=== PATIENT | female | born 1950 | race Caucasian/White ===

== ENCOUNTER 2019-02-23 08:47 | Day surgery (SDC) | payer MEDICARE, OTHER, SELFPAY ==
--- NOTE | 2019-02-23 | PATH_ITS ---
[facility] Accession Number: [id number] . 01 Material submitted: . colon - ASCENDING COLON POLYP . 02 Diagnosis: Ascending Colon, Polyp: Tubular adenoma. MRV/02/24/2019 . 02 Electronically signed: . Prosper Walker MD, PhD, Pathologist NPI- [id number] . 01 Gross description: . ASCENDING COLON POLYP: Received in formalin are 2 fragment(s) of koehler, soft tissue measuring 0.3 x 0.2 x 0.2 cm to 0.3 x 0.3 x 0.3 cm which is entirely submitted and submitted entirely in 1 cassette(s) /DMC /DMC . 02 Pathologist provided ICD-10: D12.2 . 02 CPT . 844832 Performed at: 01 [facility] [address] [place] [address], [place], [place] [id number] MD Isac Diaz MD Phone: [phone] Performed at: 02 [facility] [address] [place], [place] [id number] MD Sol Gonzalez MD Phone: [phone]
[2019-02-23 09:22] VITALS: BP 137/85; PULSE 81; RESP 16; TEMP 36.7; O2SAT 100; BMI 22.3
[2019-02-23] MEDS: SODIUM CHLORIDE 0.9% 1,000 ML 200 ML IV (09:39)
--- NOTE | 2019-02-23 10:46 | PM.HP.1 ---
History of Present Illness Chief complaint: [id number] Patient History Medical History Cataract fragments of both eyes following cataract surgery (Acute) Precancerous skin lesion (Acute) Surgical History Hx of total hip arthroplasty (Acute) Social History household members: spouse Family & Social History Social History: household members spouse Meds Home Medications Medication Instructions Recorded Confirmed Type No Known Home Medications 02/23/19 02/23/19 History Allergies Allergy/AdvReac Type Severity Reaction Status Date / Time nitrofurantoin Allergy Unknown Verified 02/23/19 09:21 Sulfa (Sulfonamide Allergy Unknown Verified 02/23/19 09:21 Antibiotics) Review of Systems Review of Systems All systems reviewed & are unremarkable except as noted in HPI and below Exam Vital Signs (past 8 hours): - 02/23/19 09:22 Temperature 98.1 F Pulse Rate 81 Respiratory Rate 16 Blood Pressure 137/85 Pulse Oximetry 100 Oxygen Delivery Method Room Air Narrative Exam Narrative: Awake alert and oriented x3, pupils equal round reactive to light, lungs clear, heart regular rhythm and rate, abdomen soft nontender nondistended, extremities without edema Assessment & Plan Assessment & Plan narrative: Colon cancer screening, colonoscopy
[2019-02-23] MEDS: MIDAZOLAM 5 MG/5 ML VIAL IV (10:57)
[2019-02-23] MEDS: fentaNYL 250 MCG/5 ML INJ IV (10:58)
[2019-02-23 11:07] VITALS: BP 111/61; PULSE 83; RESP 17; TEMP 37; O2SAT 97
--- NOTE | 2019-02-23 11:11 | PM.OP.ENDO ---
Operative Date/Time/Diagnoses Date of procedure: 02/23/19 Procedure & Clinicians Study performed: Colonoscopy with cold biopsy Moderate conscious sedation was administered by the endoscopy nurse and supervised by the endoscopist. The following parameters were monitored: Oxygen saturation, heart rate, blood pressure, and response to care. Sedation: 4 mg midazolam, 100 micro g fentanyl Indications: Colon cancer screening. Last colonoscopy over 10 years ago Procedure Notes Procedure in detail: Prior to the procedure, history and physical was performed, and patient medications and allergies were reviewed. Preprocedure nursing history and assessment was reviewed. Patient identification and proposed procedure were verified by the physician and nurse in the procedure room. The physical status of the patient was reassessed after the procedure. After informed consent was obtained including risks, benefits, and alternatives, the scope was passed under direct vision. Throughout the procedure, the patient's blood pressure, pulse, and oxygen saturations were monitored continuously. The colonoscope was introduced through the anus and advanced to the cecum as identified by the appendiceal orifice and ileocecal valve. The patient tolerated the procedure well. Bowel prep was deemed adequate to detect polyps greater than 5 mm. Perianal and digital rectal examination is unremarkable. Retroflexion in the rectum was unrevealing A 3 mm sessile polyp was removed from the ascending colon with a Jumbo biopsy forceps and retrieved The colon was otherwise normal appearing Impression: 3 mm ascending colon polyp removed Colon otherwise unremarkable Sedation minutes: 16 Complications: other (EBL minimal. No complications) Plan for aftercare: Follow-up pathology results Repeat colonoscopy at a date to be determined based on pathology results Resume home medications Resume previous diet Discharge home with escort
[2019-02-23 11:12] VITALS: BP 104/57; PULSE 78; RESP 16; O2SAT 96
[2019-02-23 11:20] VITALS: BP 115/71; PULSE 89; RESP 16; O2SAT 97
== END 2019-02-23 11:35 | disposition home or self-care (01) ==
PROVIDERS: PCP Family Medicine Geriatric Medicine; Visit Provider Internal Medicine
PROC: 0DJD8ZZ Inspection of Lower Intestinal Tract, Via Natural or Artificial Opening Endoscopic (ICD-10-PCS; CPT 45378; principal; 2019-02-23 10:30)
DX: Z12.11 Encounter for screening for malignant neoplasm of colon (principal); D12.2 Benign neoplasm of ascending colon
CPT/HCPCS: 45380; 88305; J2250; J3010

== ENCOUNTER → 2020-08-01 08:10 | Outpatient (CLI) | payer MEDICARE, OTHER, SELFPAY ==
[2020-08-01 09:44] LABS: Add Manual Diff / Slide Review NO; Basophils Absolute Auto 100 /uL (0-100); Basophils Percent Auto 1.8 % (0-2); Eosinophils Absolute Auto 500 /uL (0-450); Eosinophils Percent Auto 9.1 % (2-4); Hemoglobin 13.1 g/dL (12.0-16.0); Lymphocytes Absolute Auto 1700 /uL (1100-4500); Lymphocytes Percent Auto 30.6 % (25-40); Mean Corpuscular HGB Conc 32.6 % (30-36); Monocytes Absolute Auto 500 /uL (0-900); Monocytes Percent Auto 8.4 % (3-14); Neutrophils Absolute Auto 2700 /uL (1500-7000); Neutrophils Percent Auto 50.1 % (50-75); Platelet Count 347 X10^3/uL (150-400); Red Blood Cell Count 4.35 X10^6/uL (4.0-5.2); Red Cell Distribution Width 12.9 % (11.6-14.8); White Blood Cell Count 5.5 X10^3/uL (4.5-11.0)
[2020-08-01 10:14] LABS: Alanine Aminotransferase 14 IU/L (<35); Albumin 3.9 g/dL (3.5-5.0); Alkaline Phosphatase 72 U/L (38-126); Aspartate Aminotransferase 24 IU/L (14-36); BUN Creatinine Ratio 27.8 (6-22); Bilirubin Total 0.4 mg/dL (0.2-1.3); Blood Urea Nitrogen 20 mg/dL (7-17); Calcium 9.3 mg/dL (8.4-10.2); Carbon Dioxide 31 mmol/L (22-32); Chloride 104 mmol/L (98-107); Cholesterol 225 mg/dL (140-199); Estimated Glomerular Filt Rate > 60.0 mL/min (>60); Glucose 87 mg/dL (80-110); HDL Cholesterol 43 mg/dL (40-60); HEMOLYSIS < 15 (0-50); LDL Cholesterol Calculated 156 mg/dL (<100); Potassium 4.6 mmol/L (3.4-5.1); Sodium 139 mmol/L (137-145); Total Protein 7.9 g/dL (6.3-8.2); Triglycerides 131 mg/dL (35-150)
[2020-08-01 10:31] LABS: Vitamin D 25 Hydroxy (D3) 45.6 ng/mL (30.0-100.0)
[2020-08-01 14:17] LABS: Appearance Urine UA SL CLOUDY; Bilirubin Urine UA NEGATIVE (NEGATIVE); Color Urine UA YELLOW; Glucose Urine UA NEGATIVE (Negative); Ketones Urine UA NEGATIVE (NEGATIVE); Leukocyte Esterase Urine UA NEGATIVE (NEGATIVE); Nitrite Urine UA NEGATIVE (Negative); Occult Blood Urine UA NEGATIVE (Negative); Protein Urine UA NEGATIVE (Negative); Specific Gravity Urine UA 1.015 (1.000-1.035); Urobilinogen Urine UA 0.2 E.U./dL (0.2)
== END ==
PROVIDERS: PCP Registered Nurse; Referring Provider Registered Nurse; Visit Provider Registered Nurse
DX: Z00.00 Encounter for general adult medical examination without abnormal findings (principal); E78.5 Hyperlipidemia, unspecified; K21.9 Gastro-esophageal reflux disease without esophagitis; E55.9 Vitamin D deficiency, unspecified; Z87.440 Personal history of urinary (tract) infections
CPT/HCPCS: 36415; 80053; 80061; 81003; 82306; 85025

== ENCOUNTER → 2020-08-20 13:43 | Outpatient (CLI) | payer MEDICARE, OTHER, SELFPAY ==
--- NOTE | 2020-08-20 14:16 | DI.RAD.S_ITS ---
PROCEDURE: XR CHEST 2V INDICATIONS: SOB TECHNIQUE: 2 views of the chest were acquired. COMPARISON: [facility], CR, CHEST 1 VIEW, 01/19/2012, 10:48. [facility], CR, CHEST 1 VIEW, 01/12/2012, 12:25. FINDINGS: Surgical changes and devices: None. Lungs and pleura: Lungs are abnormal with a prominent interstitial pattern that has significantly worsened from the comparison study 01/19/12. Focal consolidation is not present but generalized patchy alveolar opacification can be seen.. No pleural effusions or pneumothorax. Mediastinum: Mediastinal contours are normal. Heart size is normal. Bones and chest wall: No suspicious bony abnormalities. Soft tissues appear unremarkable. IMPRESSION: Prominent interval worsening of an interstitial lung disease pattern with increased interstitial prominence, with a micronodular pattern, and with findings raising concern for presence of atypical/viral pneumonia. Dictated by: Go Covarrubias M.D. on 08/20/2020 at 15:11 Approved by: Go Covarrubias M.D. on 08/20/2020 at 15:12
== END ==
PROVIDERS: PCP Registered Nurse; Referring Provider Registered Nurse; Visit Provider Registered Nurse
DX: R06.02 Shortness of breath (principal); J84.9 Interstitial pulmonary disease, unspecified
CPT/HCPCS: 71046

== ENCOUNTER → 2020-08-22 13:43 | Outpatient (ROUT) | payer MEDICARE, OTHER, SELFPAY ==
[2020-08-23 11:36] LABS: COVID19 Sendout Not Detected (Not Detected)
== END ==
PROVIDERS: PCP Registered Nurse; Visit Provider Physician Assistant
DX: R06.02 Shortness of breath (principal)
CPT/HCPCS: 87635

== ENCOUNTER → 2021-01-28 13:22 | Outpatient (CLI) | payer MEDICARE, OTHER, SELFPAY ==
[2021-01-28 16:27] LABS: COVID19 -Nasal RAPID Negative (Negative)
== END ==
PROVIDERS: PCP Registered Nurse; Visit Provider Physician Assistant
DX: Z20.822 Contact with and (suspected) exposure to COVID-19 (principal)
CPT/HCPCS: 87635; C9803

== ENCOUNTER → 2021-02-06 16:05 | Outpatient (CLI) | payer MEDICARE, OTHER, SELFPAY ==
[2021-02-10 16:52] LABS: Antimyeloperoxidase AB <9.0 U/mL (0.0-9.0); Antiproteinase 3 AB <3.5 U/mL (0.0-3.5); Atypical P-ANCA Titer <1:20 titer (Neg:<1:20); C-ANCA Titer <1:20 titer (Neg:<1:20); P-ANCA Titer <1:20 titer (Neg:<1:20)
[2021-02-11 13:28] LABS: Aureobasidium pullulans IgG Negative (Negative); Micropolyspora faeni IgG Negative (Negative); Pigeon Serum IgG Negative (Negative); Thermoactinomyces sacchari IgG Negative (Negative); Thermoactinomyces vulgaris IgG Negative (Negative)
== END ==
PROVIDERS: PCP Family Medicine; Referring Provider Internal Medicine Critical Care Medicine; Visit Provider Internal Medicine Critical Care Medicine
DX: J84.89 Other specified interstitial pulmonary diseases (principal); D71 Functional disorders of polymorphonuclear neutrophils
CPT/HCPCS: 36415; 83520; 86256; 86331; 86602; 86606; 86609; 86671

== ENCOUNTER → 2021-02-22 07:15 | Outpatient (CLI) | payer MEDICARE, OTHER, SELFPAY ==
[2021-02-22 08:30] LABS: Cholesterol 232 mg/dL (140-199); HDL Cholesterol 69 mg/dL (40-60); LDL Cholesterol Calculated 135 mg/dL (<100); Triglycerides 141 mg/dL (35-150)
== END ==
PROVIDERS: PCP Family Medicine; Referring Provider Family Medicine; Visit Provider Family Medicine
DX: E78.5 Hyperlipidemia, unspecified (principal)
CPT/HCPCS: 36415; 80061

== ENCOUNTER → 2021-04-23 11:15 | Outpatient (CLI) | payer MEDICARE, OTHER, SELFPAY ==
--- NOTE | 2021-04-23 11:19 | DI.RAD.S_ITS ---
PROCEDURE: XR LUMBAR SPINE 2-3V INDICATIONS: lumbar strain TECHNIQUE: 3 views of the lumbar spine were acquired. COMPARISON: [facility], , THORACO-LUMBAR SPINE 2 VIEWS, 12/09/2011, 11:35. FINDINGS: Bones: 5 [id number] vertebrae are present. There is near-normal bony alignment. No definite acute vertebral body compression fractures are found but there is inferior deviation of the middle 3rd of the upper endplate the L2 vertebral body, present also in 2012. No suspicious bony lesions. Convex rightward scoliosis is mild. Soft tissues: Overlying bowel gas pattern is normal. No suspicious soft tissue calcifications. IMPRESSION: Mild convex rightward scoliosis, no definite acute trauma found. Mild superior endplate deviation inferiorly, present at least since a comparison plain film study from 12/09/11.. No subluxation seen. Dictated by: Go Covarrubias M.D. on 04/23/2021 at 11:49 Approved by: Go Covarrubias M.D. on 04/23/2021 at 11:52
== END ==
PROVIDERS: PCP Family Medicine; Referring Provider Physician Assistant; Visit Provider Physician Assistant
DX: S39.012A Strain of muscle, fascia and tendon of lower back, initial encounter (principal); M41.86 Other forms of scoliosis, lumbar region; X58.XXXA Exposure to other specified factors, initial encounter
CPT/HCPCS: 72100

== ENCOUNTER → 2021-04-24 10:56 | Outpatient (CLI) | payer MEDICARE, OTHER, SELFPAY ==
--- NOTE | 2021-04-24 10:59 | DI.MG.S_ITS ---
BILATERAL DIGITAL SCREENING MAMMOGRAM 3D/2D WITH CAD: 04/24/2021 CLINICAL: Routine screening. Comparison is made to exams dated: 05/10/2019 mammogram, 04/29/2017 mammogram, and 04/25/2015 mammogram - [facility]. The tissue of both breasts is heterogeneously dense. This may lower the sensitivity of mammography. Current study was also evaluated with a Computer Aided Detection (CAD) system. No significant masses, calcifications, or other findings are seen in either breast. There has been no significant interval change. IMPRESSION: NEGATIVE There is no mammographic evidence of malignancy. A 1 year screening mammogram is recommended. This exam was interpreted at Station ID: [id number]. NOTE: For mammograms, a report in lay terms will be sent to the patient. Approximately 15% of breast malignancies will not be visualized mammographically. In the management of a palpable breast mass, a negative mammogram must not discourage biopsy of a clinically suspicious lesion. Electronically Signed By: Stephanie arrieta/alesia:04/24/2021 12:51:43 copy to: GAGANDEEP CASE letter sent: Normal Exam ACR BI-RADS Category 1: Negative [id number]
== END ==
PROVIDERS: PCP Family Medicine; Referring Provider Family Medicine; Visit Provider Family Medicine
DX: Z12.31 Encounter for screening mammogram for malignant neoplasm of breast (principal); M85.852 Other specified disorders of bone density and structure, left thigh; Z78.0 Asymptomatic menopausal state
CPT/HCPCS: 77063; 77067; 77080

== ENCOUNTER → 2021-05-01 11:38 | Outpatient (CLI) | payer MEDICARE, OTHER, SELFPAY ==
[2021-05-01 12:43] LABS: COVID19 -Nasal RAPID Negative (Negative)
== END ==
PROVIDERS: PCP Family Medicine; Referring Provider Physician Assistant; Visit Provider Physician Assistant
DX: Z01.812 Encounter for preprocedural laboratory examination (principal); Z20.822 Contact with and (suspected) exposure to COVID-19
CPT/HCPCS: 87635; C9803

== ENCOUNTER → 2021-06-14 12:32 | Outpatient (CLI) | payer MEDICARE, OTHER, SELFPAY ==
--- NOTE | 2021-06-14 12:35 | DI.RAD.S_ITS ---
PROCEDURE: XR THORACIC SPINE 3V INDICATIONS: Acute pain, kyphosis TECHNIQUE: 3 views of the thoracic spine were acquired. COMPARISON: [facility], , THORACO-LUMBAR SPINE 2 VIEWS, 12/09/2011, 11:35. FINDINGS: Bones: Mild levoscoliosis of the thoracic spine with the apex at T10. Since the remote prior study done in 2011, there has been interval compression fracture of T6, T8, minimally at T9, and superior endplate scalloping of T12. No visible retropulsed fracture fragments or significant displacement. There is also superior endplate scalloping of lumbar vertebral bodies. There is anterior disc degeneration in the midthoracic spine. No suspicious bony lesions. 12 pairs of ribs are noted, and appear intact where visualized. Soft tissues: No paravertebral stripe thickening. IMPRESSION: 1. Interval compression fractures of T6 and T8. True chronicity is uncertain and MR imaging is recommended to assess for bone edema and possible vertebroplasty as treatment. Consider interventional radiology consult. 2. There is mild degenerative vertebral body height loss at T9 and a chronic compression fracture of T12 which is stable. 3. Slight progression of mild thoracic scoliosis. Dictated by: Stephanie Son M.D. on 06/14/2021 at 15:33 Approved by: Stephanie Son M.D. on 06/14/2021 at 15:38
== END ==
PROVIDERS: PCP Family Medicine; Referring Provider Family Medicine; Visit Provider Family Medicine
DX: M54.6 Pain in thoracic spine (principal); M48.54XA Collapsed vertebra, not elsewhere classified, thoracic region, initial encounter for fracture; M40.209 Unspecified kyphosis, site unspecified
CPT/HCPCS: 72072

== ENCOUNTER → 2021-06-21 16:35 | Outpatient (CLI) | payer MEDICARE, OTHER, SELFPAY ==
--- NOTE | 2021-06-21 16:38 | DI.MRI.S_ITS ---
PROCEDURE: MR THORACIC SPINE WO CON INDICATIONS: compression fractures TECHNIQUE: Noncontrast sagittal T1 spine echo and T2 fast spin echo, sagittal STIR, axial T1 and T2 fast spin echo through the thoracic spine. COMPARISON: [facility], CR, XR THORACIC SPINE 3V, 06/14/2021, 12:34. FINDINGS: Image quality: Excellent. Alignment and Curvature: Accentuated thoracic kyphosis is seen. No focal AP alignment abnormality is seen. Bone Marrow: Marrow is of normal overall signal. At T6, there is a compression deformity seen, with 50% loss of height anteriorly. No posterior displaced rib fracture fragments are seen. There is decreased T1 signal and increased STIR signal seen along superior aspect of this vertebral body, suggestive of an acute or subacute fracture. At T7, there is minimal anterior wedge deformity seen, approximately 10%. No findings of acute fracture can be seen. At T8, there is 50-60% loss of height anteriorly. There is decreased T1 weighted signal and increased STIR signal seen along the superior and anterior aspects of this vertebral body. No posterior displacement of fracture fragments can be seen. At the T9 level, there is a mild compression deformity seen involving the inferior endplate centrally, with approximately 20% loss of height. No acute features are seen. There is an associated Schmorl's node. A mild remote compression deformities can be seen involving the superior endplate of T12, with approximately 20% loss of height. At L2, there is a 20% central deformity seen, without acute features. Spinal Cord: Visualized spinal cord is normal in size and signal. Paraspinous Soft Tissues: No paravertebral masses. Miscellaneous: Generalized degenerative changes are seen, with scattered levels of mild disc space narrowing. Several levels of mild to moderate neural foraminal narrowing can be seen within the mid thoracic spine. No definite levels of central canal narrowing can be seen. IMPRESSION: Acute or subacute fracture seen involving T6 and T8. Please consider interventional radiology consultation for discussion of vertebroplasty. Remote appearing fractures can be seen involving T7, T9, T12, and L2. Dictated by: Satinder Clay M.D. on 06/21/2021 at 18:16 Approved by: Satinder Clay M.D. on 06/21/2021 at 18:22
== END ==
PROVIDERS: PCP Family Medicine; Referring Provider Family Medicine; Visit Provider Family Medicine
DX: M99.02 Segmental and somatic dysfunction of thoracic region (principal); M54.5 Low back pain; M48.54XA Collapsed vertebra, not elsewhere classified, thoracic region, initial encounter for fracture
CPT/HCPCS: 72146

== ENCOUNTER → 2021-06-28 15:42 | Outpatient (CLI) | payer MEDICARE, OTHER, SELFPAY ==
[2021-06-28 15:51] LABS: Bacteria Urine None Seen; RBC Urine None Seen (0-5/HPF)
[2021-06-28 17:42] LABS: Appearance Urine UA CLEAR; Bilirubin Urine UA NEGATIVE (NEGATIVE); Color Urine UA YELLOW; Glucose Urine UA TRACE g/dL (Negative); Ketones Urine UA NEGATIVE (NEGATIVE); Leukocyte Esterase Urine UA NEGATIVE (NEGATIVE); Nitrite Urine UA NEGATIVE (Negative); Occult Blood Urine UA NEGATIVE (Negative); Protein Urine UA NEGATIVE (Negative); Specific Gravity Urine UA <=1.005 (1.000-1.035); Urobilinogen Urine UA 0.2 E.U./dL (0.2)
[2021-06-28 17:51] LABS: Culture Indicated Urine Cult Not Indicated; Squamous Epithelial Cell Urine 0-1 /HPF (0-5/HPF); WBC Urine 0-1/HPF (0-5/HPF); pH Urine UA 6.5 (4.5-8.0)
== END ==
PROVIDERS: PCP Family Medicine; Referring Provider Family Medicine; Visit Provider Family Medicine
DX: R34 Anuria and oliguria (principal); R10.2 Pelvic and perineal pain
CPT/HCPCS: 81001

== ENCOUNTER 2021-06-30 14:03 | Emergency (ER) | payer MEDICARE, OTHER, SELFPAY ==
[2021-06-30 14:19] VITALS: BP 214/102; PULSE 105; RESP 22; TEMP 36.9; O2SAT 97; BMI 19.2
--- NOTE | 2021-06-30 14:26 | DI.RAD.S_ITS ---
PROCEDURE: XR CHEST 1V INDICATIONS: chest pain TECHNIQUE: One view of the chest was acquired. COMPARISON: [facility], CR, XR CHEST 2V, 08/20/2020, 14:17. [facility], CR, CHEST 1 VIEW, 01/19/2012, 10:48. FINDINGS: Surgical changes and devices: None. Lungs and pleura: No consolidation. Mild diffuse prominence of the interstitium which is improved compared to August 2020. No pleural effusions or pneumothorax. Mediastinum: Mediastinal contours appear normal. Heart size is normal. Bones and chest wall: No suspicious bony lesions. Overlying soft tissues appear unremarkable. IMPRESSION: No acute abnormality identified. Mild diffuse prominence of the interstitial markings which is improved compared to August 2020. This could represent interstitial lung disease or scarring. Dictated by: Lino Zhang M.D. on 06/30/2021 at 13:53 Approved by: Lino Zhang M.D. on 06/30/2021 at 13:57
[2021-06-30 14:51] LABS: COVID19 -Nasal RAPID Negative (Negative)
--- NOTE | 2021-06-30 15:01 | ED_ITS ---
HPI - General Adult General Chief complaint: Hypertension Stated complaint: Abdominal Pain/Loose Stools/Increase heartrate Time Seen by Provider: 06/30/21 14:47 Source: patient Mode of arrival: Family Vehicle Limitations: no limitations History of Present Illness HPI narrative: Patient is a 71-year-old female who is here for evaluation of an increase in heart rate, elevation in her blood pressure, some abdominal d iscomfort yesterday and also some loose stools. She has chronic back discomfort. She has been on tramadol. She started to get some abdominal discomfort from this so she switched to using Tylenol and Advil. She was taking Advil prior to this. She is also on steroids. She no longer has abdominal pain. She has no urinary symptoms. No nausea vomiting. Earlier today she felt like her heart was beating fast and also had an elevated blood pressure. She denies chest pain. She has chronic lung disease and has her baseline shortness of breath from this but nothing is changed. She contacted her primary doctor regarding the symptoms and was told to come to the emergency department for evaluation. Related Data Home Medications Medication Instructions Recorded Confirmed Estriol ([place] Butter) 2 mg VAGINAL QWEEK 07/26/20 06/25/21 prednisone 20 mg tablet 10 mg PO DAILY tab 05/21/21 06/25/21 Previous Rx's Medication Instructions Recorded cyclobenzaprine 10 mg tablet 10 mg PO BID PRN #20 tab 04/18/21 lorazepam 0.5 mg tablet (Ativan) 0.5 mg PO DAILY PRN #2 tab 06/18/21 tramadol 50 mg tablet 50 mg PO TID PRN #60 tab 06/25/21 Allergies Allergy/AdvReac Type Severity Reaction Status Date / Time nitrofurantoin Allergy Intermediate Fatigued Verified 06/30/21 14:26 Sulfa (Sulfonamide Allergy Intermediate Hives Verified 06/30/21 14:26 Antibiotics) Review of Systems Constitutional Constitutional: Reports system reviewed and no additional complaints, except as documented Cardiovascular Cardiovascular: Reports as per HPI and Reports system reviewed and no additional complaints, except as documented Respiratory Respiratory: Reports as per HPI and Reports system reviewed and no additional complaints, except as documented Gastrointestinal Gastrointestinal: Reports as per HPI and Reports system reviewed and no additional complaints, except as documented Genitourinary Genitourinary: Reports system reviewed and no additional complaints, except as documented Musculoskeletal Musculoskeletal: Reports as per HPI Integumentary/Breasts Skin/Breast: Reports system reviewed and no additional complaints, except as documented Neurologic Neurologic: Reports system reviewed and no additional complaints, except as documented Endocrine Endocrine: Reports system reviewed and no additional complaints, except as documented Hematologic/Lymphatic On Anticoagulants: No Allergic/Immunologic Allergic/Immunologic: Reports system reviewed and no additional complaints, except as documented Patient History Medical History Abnormal Pap smear of cervix Acute low back pain Acute right-sided thoracic back pain Allergies Body posture problem Borderline hypothyroidism Cataract fragments of both eyes following cataract surgery Cervical somatic dysfunction Chicken pox (~1957) Colon polyps (~2018) Cranial somatic dysfunction Degeneration of spine Frequent UTI GERD (gastroesophageal reflux disease) Hearing loss Hip fracture (~1998) Lumbar region somatic dysfunction Measles (~1953) Mumps Oral herpes Osteoarthritis of right hand (~2015) Osteopenia (~1997) Osteoporosis (~2000) Pelvic somatic dysfunction Pneumonia (~2011) Precancerous skin lesion (~2017) Recurrent sinusitis Rib pain on right side Rubella (~1963) Sacral region somatic dysfunction Sarcoidosis of lung Screening for breast cancer Segmental and somatic dysfunction of abdomen and other regions Segmental and somatic dysfunction of rib cage Shoulder pain (~2017) Thoracic compression fracture Thoracic region somatic dysfunction Vision disorder Surgical History Anesthesia History of cataract removal with insertion of prosthetic lens (~2015) Hx of total hip arthroplasty Family History Father Vascular disease Liver disease Mother Cancer Grandfather Cancer Diabetes mellitus Grandmother Congestive heart failure Grandfather History of heart disease Grandmother History of heart disease Family/Other Hypertension Social History household members: spouse Smoking Status: Never smoker second hand exposure: No alcohol intake: current substance use type: does not use Smoking Status: Never smoker alcohol intake frequency: holidays/special occasions only Substance Use Type: does not use Exam Initial Vital Signs Initial Vital Signs: Vital Signs Temperature 98.4 F 06/30/21 14:19 Pulse Rate 105 H 06/30/21 14:19 Respiratory Rate 22 06/30/21 14:19 Blood Pressure 214/102 H 06/30/21 14:19 Pulse Oximetry 97 06/30/21 14:19 Const General: cooperative, comfortable and well developed HENIL Head: normal to inspection and normocephalic Eyes General: appearance normal, both eyes and all related structures Chest Chest: normal inspection of the chest Resp Effort & Inspection: normal respiratory effort Auscultation: clear to auscultation bilaterally Cardio Rate: regular rate Rhythm: regular rhythm GI Inspection: normal to inspection Palpation: soft and No tender Skin General: no rashes or lesions noted Neuro General: patient alert, patient awake, patient oriented x3 and moves all extremities Speech: speech normal Extrem General: normal to inspection and capillary refill normal Psych Appearance: grossly normal and well kempt Scores GCS Alonso coma scale eye opening: Spontaneous Alonso coma scale verbal response: Orientated Alonso coma scale motor response: Obey commands Alonso coma scale total score: 15 Course Orders Ordered: ED Orders 06/30/21 14:26 XR chest 1V Stat EKG-12 Lead Stat 06/30/21 14:30 COVID19 -Nasal swab/Pre-Proc Stat 06/30/21 14:39 Complete Blood Count AUTO DIFF Stat Comprehensive Metabolic Panel Stat Lipase Stat Troponin & CK Cardiac Panel Stat Vital Signs Vital signs: Vital Signs - 8 hr 06/30/21 14:19 06/30/21 15:10 06/30/21 15:30 Temperature 98.4 F Pulse Rate 105 H 91 H 95 H Respiratory Rate 22 24 Blood Pressure 214/102 H Pulse Oximetry 97 99 99 06/30/21 15:31 Temperature Pulse Rate 97 H Respiratory Rate 22 Blood Pressure 169/98 H Pulse Oximetry 99 Medical Decision Making Medical Records Medical records reviewed: Yes I reviewed the patient's medical records. Lab Data Lab results reviewed: Yes I reviewed the patient's lab results. Result diagrams: 06/30/21 14:39 06/30/21 14:39 Labs: Lab Results 06/30/21 06/30/21 06/30/21 Range/Units 14:30 14:39 14:39 WBC 8.9 (4.5-11.0) X10^3/uL RBC 4.30 (4.0-5.2) X10^6/uL Hgb 13.2 (12.0-16.0) g/dL Hct 40.6 (36-46) % MCV 94.3 (80-100) fL MCH 30.6 (26-34) PG MCHC 32.5 (30-36) % RDW 12.8 (11.6-14.8) % Plt Count 463 H (150-400) X10^3/uL Neut % (Auto) 83.8 H (50-75) % Lymph % (Auto) 11.9 L (25-40) % [place] % (Auto) 3.1 (3-14) % Eos % (Auto) 0.6 L (2-4) % Baso % (Auto) 0.6 (0-2) % Neut # (Auto) 7400 H (6536-9613) /uL Lymph # (Auto) 1100 (2142-7013) /uL [place] # (Auto) 300 (0-900) /uL Eos # (Auto) 100 (0-450) /uL Baso # (Auto) 100 (0-100) /uL Sodium 133 L (137-145) mmol/L Potassium 4.2 (3.4-5.1) mmol/L Chloride 97 L (98-107) mmol/L Carbon Dioxide 29 (22-32) mmol/L BUN 11 (7-17) mg/dL Creatinine 0.52 (0.52-1.04) mg/dL Estimated GFR > 60.0 (>60) mL/min BUN/Creatinine Ratio 21.2 (6-22) Glucose 154 H (80-110) mg/dL Calcium 10.1 (8.4-10.2) mg/dL Total Bilirubin 0.5 (0.2-1.3) mg/dL AST 33 (14-36) IU/L ALT 26 (<35) IU/L Alkaline Phosphatase 92 (38-126) U/L Total Creatine Kinase 43 (30-135) U/L CK-MB (CK-2) TNP CK-MB (CK-2) Rel Index TNP Troponin I < 0.012 (0.01-0.034) ng/mL Total Protein 8.2 (6.3-8.2) g/dL Albumin 4.5 (3.5-5.0) g/dL Globulin 3.7 (1.7-4.1) g/dL Albumin/Globulin Ratio 1.2 (1.0-2.8) Lipase 84 (23-300) U/L SARS-CoV-2 (PCR) Negative (Negative) Imaging Data Chest x-ray: Radiologist's Impression: [address] [address] XRay Report Signed Patient: Kayleigh Arita MR#: [id number] : 1950 Acct:[id number] Age/Sex: 71 / F Date of Service: 06/30/21 Loc: ED Accession Number: [id number] ?? Procedure: XR chest 1V Ordering Provider: Marcio Luna D.O. PROCEDURE:? XR CHEST 1V ? INDICATIONS:? chest pain ? TECHNIQUE:? One view of the chest was acquired.? ? COMPARISON:? [facility], CR, XR CHEST 2V, 08/20/2020, 14:17.? [facility], CR, CHEST 1 VIEW, 01/19/2012, 10:48. ? FINDINGS:? ? Surgical changes and devices:? None.? ? Lungs and pleura:? No consolidation.? Mild diffuse prominence of the interstitium which is improved compared to August 2020.? No pleural effusions or pneumothorax.? ? Mediastinum:? Mediastinal contours appear normal.? Heart size is normal.? ? Bones and chest wall:? No suspicious bony lesions.? Overlying soft tissues appear unremarkable.? ? IMPRESSION:? No acute abnormality identified. ? Mild diffuse prominence of the interstitial markings which is improved compared to August 2020. This could represent interstitial lung disease or scarring. ? ? Dictated by: Lino Zhang M.D. on 06/30/2021 at 13:53 ? ? Approved by: Lino Zhang M.D. on 06/30/2021 at 13:57? ECG Data Attestation: I personally reviewed and interpreted this ECG as follows: Interpretation: Sinus rhythm Ventricular rate 94 Left axis deviation LVH Normal QRS Normal QTC No ST T wave changes MDM Narrative Medical decision making narrative: Patient's blood pressure and heart rate improved here in the emergency department. She has a benign exam. EKG is unremarkable. Labs unremarkable. Low suspicion for ACS. Have a high suspicion that her abdominal discomfort is related to the anti-inflammatories and the steroids she has been taking without taking any PPI. I did discuss this with her. She has been on omeprazole in the past and I encouraged her to start taking this. Stated that if she needed stronger pain medication for her back that she needs to talk with her primary doctor regarding this. She is afebrile. Patient could be safely discharged home. She was given return precautions. She expressed understanding and agreement. Discharge Plan Departure Patient Disposition: Home Clinical Impression: Abdominal pain, Hypertension Instructions: Essential Hypertension, DI for Abdominal Pain-Adult Activity Restrictions/Additional Instructions: Continues to take all of your medications as directed. I do recommend that you start taking a medicine such as omeprazole. You can purchase this over-the- counter. Contact your primary doctor for a follow-up. Return to the emergency department for any new or worsening symptoms Prescriptions: No Action cyclobenzaprine 10 mg tablet 10 mg PO BID PRN (Reason: muscle spasm) Qty: 20 RF: 0 prednisone 20 mg tablet 10 mg PO DAILY RF: 0 lorazepam [Ativan] 0.5 mg tablet 0.5 mg PO DAILY PRN (Reason: anxiety) Qty: 2 RF: 0 Estriol ([place] Butter) 2 mg vaginal QWEEK RF: 0 tramadol 50 mg tablet 50 mg PO TID PRN (Reason: new compression fracture) Qty: 60 RF: 0 Referrals: Winston Parsons DO [Primary Care Provider] -
[2021-06-30 15:02] LABS: Add Manual Diff / Slide Review NO; Basophils Absolute Auto 100 /uL (0-100); Basophils Percent Auto 0.6 % (0-2); Eosinophils Absolute Auto 100 /uL (0-450); Eosinophils Percent Auto 0.6 % (2-4); Hematocrit 40.6 % (36-46); Hemoglobin 13.2 g/dL (12.0-16.0); Lymphocytes Absolute Auto 1100 /uL (1100-4500); Lymphocytes Percent Auto 11.9 % (25-40); Mean Corpuscular HGB Conc 32.5 % (30-36); Mean Corpuscular Hemoglobin 30.6 PG (26-34); Mean Corpuscular Volume 94.3 fL (80-100); Monocytes Absolute Auto 300 /uL (0-900); Monocytes Percent Auto 3.1 % (3-14); Neutrophils Absolute Auto 7400 /uL (1500-7000); Neutrophils Percent Auto 83.8 % (50-75); Platelet Count 463 X10^3/uL (150-400); Red Cell Distribution Width 12.8 % (11.6-14.8); White Blood Cell Count 8.9 X10^3/uL (4.5-11.0)
[2021-06-30 15:05] LABS: Alanine Aminotransferase 26 IU/L (<35); Albumin 4.5 g/dL (3.5-5.0); Albumin Globulin Ratio 1.2 (1.0-2.8); Alkaline Phosphatase 92 U/L (38-126); Aspartate Aminotransferase 33 IU/L (14-36); BUN Creatinine Ratio 21.2 (6-22); Bilirubin Total 0.5 mg/dL (0.2-1.3); Blood Urea Nitrogen 11 mg/dL (7-17); Calcium 10.1 mg/dL (8.4-10.2); Carbon Dioxide 29 mmol/L (22-32); Chloride 97 mmol/L (98-107); Creatine Kinase 43 U/L (30-135); Estimated Glomerular Filt Rate > 60.0 mL/min (>60); Globulin 3.7 g/dL (1.7-4.1); Glucose 154 mg/dL (80-110); HEMOLYSIS < 15 (0-50); Lipase 84 U/L (23-300); Potassium 4.2 mmol/L (3.4-5.1); Sodium 133 mmol/L (137-145); Total Protein 8.2 g/dL (6.3-8.2)
[2021-06-30 15:10] VITALS: PULSE 91; O2SAT 99
[2021-06-30 15:17] LABS: Troponin I < 0.012 ng/mL (0.01-0.034)
[2021-06-30 15:30] VITALS: PULSE 95; RESP 24; O2SAT 99
[2021-06-30 15:31] VITALS: BP 169/98; PULSE 97; RESP 22; O2SAT 99
[2021-06-30 16:00] VITALS: PULSE 93; RESP 19; O2SAT 98
[2021-06-30 16:01] VITALS: BP 185/77; PULSE 96; RESP 20; O2SAT 99
== END 2021-06-30 16:12 | disposition home or self-care (01) ==
PROVIDERS: Emergency Provider Emergency Medicine; PCP Family Medicine
DX: R10.9 Unspecified abdominal pain (principal); I10 Essential (primary) hypertension; R07.9 Chest pain, unspecified; R19.7 Diarrhea, unspecified; Z20.822 Contact with and (suspected) exposure to COVID-19
CPT/HCPCS: 36415; 71045; 80053; 82550; 83690; 84484; 85025; 87635; 93005; 99283; 99284; C9803

== ENCOUNTER → 2021-07-15 13:34 | Outpatient (CLI) | payer MEDICARE, OTHER, SELFPAY ==
[2021-07-15 17:03] LABS: COVID19 -Nasal RAPID Negative (Negative)
== END ==
PROVIDERS: PCP Family Medicine; Visit Provider Nurse Practitioner Family
DX: Z20.822 Contact with and (suspected) exposure to COVID-19 (principal)
CPT/HCPCS: 87635; C9803

== ENCOUNTER → 2021-07-19 08:01 | Outpatient (CLI) | payer MEDICARE, OTHER, SELFPAY ==
[2021-07-19 09:18] LABS: Add Manual Diff / Slide Review NO; Basophils Absolute Auto 100 /uL (0-100); Basophils Percent Auto 0.8 % (0-2); Eosinophils Absolute Auto 200 /uL (0-450); Eosinophils Percent Auto 1.9 % (2-4); Hematocrit 39.3 % (36-46); Hemoglobin 13.3 g/dL (12.0-16.0); Lymphocytes Absolute Auto 2100 /uL (1100-4500); Lymphocytes Percent Auto 22.8 % (25-40); Mean Corpuscular HGB Conc 33.7 % (30-36); Mean Corpuscular Hemoglobin 31.7 PG (26-34); Mean Corpuscular Volume 93.9 fL (80-100); Monocytes Absolute Auto 600 /uL (0-900); Monocytes Percent Auto 6.5 % (3-14); Neutrophils Absolute Auto 6300 /uL (1500-7000); Platelet Count 443 X10^3/uL (150-400); Red Blood Cell Count 4.18 X10^6/uL (4.0-5.2); White Blood Cell Count 9.2 X10^3/uL (4.5-11.0)
[2021-07-19 09:51] LABS: Alanine Aminotransferase 20 IU/L (<35); Albumin 4.1 g/dL (3.5-5.0); Albumin Globulin Ratio 1.3 (1.0-2.8); Alkaline Phosphatase 125 U/L (38-126); Aspartate Aminotransferase 24 IU/L (14-36); BUN Creatinine Ratio 21.5 (6-22); Bilirubin Total 0.6 mg/dL (0.2-1.3); Blood Urea Nitrogen 14 mg/dL (7-17); Calcium 9.8 mg/dL (8.4-10.2); Carbon Dioxide 33 mmol/L (22-32); Chloride 100 mmol/L (98-107); Cholesterol 201 mg/dL (140-199); Estimated Glomerular Filt Rate > 60.0 mL/min (>60); Globulin 3.2 g/dL (1.7-4.1); Glucose 82 mg/dL (80-110); HDL Cholesterol 64 mg/dL (40-60); HEMOLYSIS < 15 (0-50); LDL Cholesterol Calculated 114 mg/dL (<100); Potassium 4.5 mmol/L (3.4-5.1); Sodium 138 mmol/L (137-145); Total Protein 7.3 g/dL (6.3-8.2); Triglycerides 115 mg/dL (35-150)
[2021-07-19 10:05] LABS: Free T3, Triiodothyronine Free 3.45 pg/mL (2.77-5.27); Free T4, Direct Thyroxine 1.17 ng/dL (0.78-2.19); Vitamin D 25 Hydroxy (D3) 53.8 ng/mL (30.0-100.0)
[2021-07-19 10:18] LABS: Thyroid Stimulating Hormone 4.07 uIU/mL (0.47-4.68)
[2021-07-27 22:36] LABS: 1,25-Dihydroxy, Vitamin D-2 <10 pg/mL (.)
== END ==
PROVIDERS: PCP Family Medicine; Referring Provider Family Medicine; Visit Provider Family Medicine
DX: E03.9 Hypothyroidism, unspecified (principal); D86.0 Sarcoidosis of lung
CPT/HCPCS: 36415; 80053; 80061; 82306; 82652; 84439; 84443; 84481; 85025

== ENCOUNTER → 2021-07-29 08:22 | Outpatient (CLI) | payer MEDICARE, OTHER, SELFPAY ==
[2021-07-29 11:13] LABS: COVID19 -Nasal RAPID Negative (Negative)
== END ==
PROVIDERS: PCP Family Medicine; Visit Provider Nurse Practitioner Family
DX: Z20.822 Contact with and (suspected) exposure to COVID-19 (principal); Z01.812 Encounter for preprocedural laboratory examination
CPT/HCPCS: 87635; C9803

== ENCOUNTER 2021-07-29 13:00 | Outpatient (RCR) | payer MEDICARE, OTHER, SELFPAY ==
--- NOTE | 2021-05-23 20:43 | PT.OIE ---
Current Diagnoses Postural kyphosis, thoracic region (05/23/21) Weakness (05/23/21) Strain of muscle, fascia and tendon of lower back, initial encounter (05/23/21) Past Medical History (Last Updated 05/21/21 @ 09:29 by Winston Parsons DO) Abnormal Pap smear of cervix Allergies Borderline hypothyroidism Cataract fragments of both eyes following cataract surgery Chicken pox (~1957) Colon polyps (~2018) Degeneration of spine Frequent UTI GERD (gastroesophageal reflux disease) Hearing loss Hip fracture (~1998) History of cataract removal with insertion of prosthetic lens (~2015) Hx of total hip arthroplasty Measles (~1953) Mumps Oral herpes Osteoarthritis of right hand (~2015) Osteopenia (~1997) Osteoporosis (~2000) Pneumonia (~2011) Precancerous skin lesion (~2017) Recurrent sinusitis Rib pain on right side Rubella (~1963) Sarcoidosis of lung Screening for breast cancer Segmental and somatic dysfunction of rib cage Shoulder pain (~2017) Thoracic region somatic dysfunction Vision disorder Past Surgical History (Last Reviewed 02/01/21 @ 10:17 by Winston Parsons DO) Anesthesia History of cataract removal with insertion of prosthetic lens (~2015) Hx of total hip arthroplasty Visit Care Team Role Provider Type Winston Parsons DO Attending Provider Physician Primary Care Provider Referring Provider Specialty: [facility] Address: [address] [place] [address], [facility] Email: Physical Therapy Initial Evaluation PT-OP-A Visit Information Start: 05/22/21 16:27 Freq: Status: Active Protocol: Document 05/23/21 15:19 [facility] (Rec: 05/23/21 16:14 [facility] [id number]) Out-Patient Physical Therapy Visit Information Visit Information Visit Type Initial Evaluation Visit Start Time 15:15 Visit Stop Time 16:15 Total Visit Minutes 60 Visit Number 1 Evaluation Information Evaluation Date 05/23/21 Precautions Precautions osteopenia PT-OP-B Current Condition Start: 05/22/21 16:27 Freq: Status: Active Protocol: Document 05/23/21 15:19 [facility] (Rec: 05/23/21 16:14 [facility] [id number]) Current Condition History of Current Condition Onset Date 04/14/21 Current Complaints back pain History of Current Condition moved a large hanging [employer] plant ; reached up to get plant off hook, heavier than she thought, also held it away from her while she carried it . Experienced pain immediately after which has persisted. She reports today the pain is improving but is still a problem in the lower right ribs in front, the side, and in back, mild to moderate depending on lifting or exerting herself. Saw Dr. Parsons, received osteopathic treatment, somewhat helpful. Having pain moving in bed, bending, doing usual activities and exercises. Stopped doing regular exercise program. Usually does weight lifting for bone density, yoga and pilates, uses 1/2 roll along her spine for stretching shoulders. Some burning feeling, denies N/T. Pain described as achy, ergonomic specialist Prior Treatments and Tests x-ray: negative Future Testing and Treatments Planned No future apointment scheduled with Dr. Parsons. Currently 2 more PT appointmentsscheduled. 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 time Hobbies PT-OP-H Neuro Start: 05/22/21 16:27 Freq: Status: Active Protocol: Document 05/23/21 15:19 [facility] (Rec: 05/23/21 20:33 [facility] [id number]) Sensation Evaluation Gross Sensation Gross Sensation WNL Comments Summary Comments denies N/T PT-OP-J Posture/Palpation/Skin Start: 05/22/21 16:27 Freq: Status: Active Protocol: Document 05/23/21 15:19 [facility] (Rec: 05/23/21 20:33 [facility] [id number]) Posture Evaluation Position Standing Head/C-Spine Posture Forward Head T-Spine Posture Increased Kyphosis Shoulder Posture (L) Rounded,(R) Rounded Scapula Posture (L) Protracted,(R) Protracted Pelvis Posture Anteriorly Tilted Palpation Assessment Location thoracic spine Palpation Findings Soft Tissue Tightness,Muscle Guarding,Tenderness PT-OP-K Range of Motion Start: 05/22/21 16:27 Freq: Status: Active Protocol: Document 05/23/21 15:19 [facility] (Rec: 05/23/21 20:33 [facility] [id number]) Cervical Spine Range of Motion Cervical Spine Active Comments WNL Lumbar Spine Range of Motion Lumbar Spine Active ROM Limitations Soft Tissue Tightness,Pain Comments moderate decrease due to pain Shoulder Goniometric Range of Motion Shoulder ROM Limitations Shoulder ROM Limitations Soft Tissue Tightness,Pain Comments shoulder elevation limited to 155 with c/o pain in thoracic spine PT-OP-L Special Tests Start: 05/22/21 16:27 Freq: Status: Active Protocol: Document 05/23/21 15:19 [facility] (Rec: 05/23/21 20:33 [facility] [id number]) Special Tests Lumbar Spine Special Tests Straight Leg Raise Test Results negative PT-OP-M Strength Start: 05/22/21 16:27 Freq: Status: Active Protocol: Document 05/23/21 15:19 [facility] (Rec: 05/23/21 20:33 [facility] [id number]) Trunk Strength Trunk Manual Muscle Testing Flexion 3- Fair- Extension 3- Fair- Comments limited by pain PT-OP-Q Treatments Start: 05/22/21 16:27 Freq: Status: Active Protocol: Document 05/23/21 15:19 [facility] (Rec: 05/23/21 20:33 [facility] [id number]) Self-Care/Home Management Treatment Education Patient Education Home Exercise Program,Pain Management,Posture Other Education issued written HEP- see scanned copy in chart PT-OP-R Modalities Start: 05/22/21 16:27 Freq: Status: Active Protocol: Document 05/23/21 15:19 [facility] (Rec: 05/23/21 20:33 [facility] [id number]) Hot Pack/Cold Pack Treatment Hot Pack Location thoracolumbar spine Patient Position Hooklying Treatment Duration (minutes) 15 Patient Tolerance Good PT-OP-T Assessment and Plan Start: 05/22/21 16:27 Freq: Status: Active Protocol: Document 05/23/21 15:19 [facility] (Rec: 05/23/21 16:14 [facility] [id number]) Physical Therapy Assessment Rehab Potential Rehabilitation Potential Good Evaluation Complexity Number of Personal Factors/Comorbidities 1-2 Number of Body Systems Impaired 3 Clinical Presentation at Evaluation Evolving Impairments Impairments Activity Tolerance,Pain, Posture,ROM,Soft Tissue Mobility Goals Four Impairment lacking appropriate exercise program Short Term Goal (STG) patient to be instructed in progressive therapeutic exercise program STG Duration 06/22/21 Snf Goal (LTG) Patient to be independent and compliant in HEP focused on ROM, core stabilization and strengthening, and postural correction. LTG Duration 07/22/21 Three Impairment decreased mobility of thoracolumbar spine Jacquard Card Cutter Goal (LTG) Patient to demonstrate thoracic and lumbar ROM WNL LTG Duration 07/22/21 Two Impairment pain as high as as 5/10 with usual activities Short Term Goal (STG) decrease pain to no greater than 3/10 with all usual activities STG Duration 06/22/21 Jacquard Card Cutter Goal (LTG) decrase pain to no greater than 1/10 with all usual activities One Impairment decreased activity tolerance with Oswestery disability index score 28% Short Term Goal (STG) Decrease ALBA to no greater than 15% STG Duration 06/22/21 Snf Goal (LTG) Decrease ALBA to no greater than 5% LTG Duration 07/22/21 Assessment Summary Assessment Patient presents to PT with function-limiting pain in her lower thoracic spine after lifting injury. Signs and symptoms consistent with muscular strain. Patient presenting with postural dysfunction, core muscle weakness, increased soft tissue tightness, and poor tolerance for her usual activities. Feel she would benefit from PT to decrease her pain, improve her posture and soft tissue mobility and help her return to her usual activities. If she doesn't improve with PT feel further imaging could be indicated. Physical Therapy Plan Frequency and Duration Frequency of Treatment 2x/Week Duration of Treatment 8 weeks Plan of Care Start Date 05/23/21 Plan of Care End Date 07/22/21 Therapeutic Interventions Therapeutic Interventions Aquatic Therapy,Home Exercise Program,Joint Mobilizations, Manual Therapy,Neuromuscular Re-education,Patient/Caregiver Education,Self-Care/Home Management,Soft Tissue Mobilization,Taping, Therapeutic Activities, Therapeutic Exercises Modalities Cold Pack/Ice Massage,Electric Stimulation,Hot Packs, Infrared Therapy,Iontophoresis ,Traction- Mechanical, Ultrasound Next Visit Focus/Plan Next Note Type Treatment Note Next Visit Plan Review HEP, progression of postural re-education, strengthening and soft tissue mobilization. Modalities as indicated for healing and pain management.
--- NOTE | 2021-05-23 20:43 | PT.OPPOC ---
Physical, Occupational & Speech Therapy At [facility] Current Diagnoses Postural kyphosis, thoracic region (05/23/21) Weakness (05/23/21) Strain of muscle, fascia and tendon of lower back, initial encounter (05/23/21) Visit Care Team Role Provider Type Winston Parsons DO Attending Provider Physician Primary Care Provider Referring Provider Specialty: [facility] Address: [address] [place] [address], [facility] Email: Plan Of Care PT-OP-T Assessment and Plan Start: 05/22/21 16:27 Freq: Status: Active Protocol: Document 05/23/21 15:19 [facility] (Rec: 05/23/21 16:14 [facility] [id number]) Physical Therapy Assessment Rehab Potential Rehabilitation Potential Good Evaluation Complexity Number of Personal Factors/Comorbidities 1-2 Number of Body Systems Impaired 3 Clinical Presentation at Evaluation Evolving Impairments Impairments Activity Tolerance,Pain, Posture,ROM,Soft Tissue Mobility Goals Four Impairment lacking appropriate exercise program Short Term Goal (STG) patient to be instructed in progressive therapeutic exercise program STG Duration 06/22/21 Custodial Goal (LTG) Patient to be independent and compliant in HEP focused on ROM, core stabilization and strengthening, and postural correction. LTG Duration 07/22/21 Three Impairment decreased mobility of thoracolumbar spine Coater Associate Goal (LTG) Patient to demonstrate thoracic and lumbar ROM WNL LTG Duration 07/22/21 Two Impairment pain as high as as 5/10 with usual activities Short Term Goal (STG) decrease pain to no greater than 3/10 with all usual activities STG Duration 06/22/21 Coater Associate Goal (LTG) decrase pain to no greater than 1/10 with all usual activities One Impairment decreased activity tolerance with Oswestery disability index score 28% Short Term Goal (STG) Decrease ALBA to no greater than 15% STG Duration 06/22/21 Coater Associate Goal (LTG) Decrease ALBA to no greater than 5% LTG Duration 07/22/21 Assessment Summary Assessment Patient presents to PT with function-limiting pain in her lower thoracic spine after lifting injury. Signs and symptoms consistent with muscular strain. Patient presenting with postural dysfunction, core muscle weakness, increased soft tissue tightness, and poor tolerance for her usual activities. Feel she would benefit from PT to decrease her pain, improve her posture and soft tissue mobility and help her return to her usual activities. If she doesn't improve with PT feel further imaging could be indicated. Physical Therapy Plan Frequency and Duration Frequency of Treatment 2x/Week Duration of Treatment 8 weeks Plan of Care Start Date 05/23/21 Plan of Care End Date 07/22/21 Therapeutic Interventions Therapeutic Interventions Aquatic Therapy,Home Exercise Program,Joint Mobilizations, Manual Therapy,Neuromuscular Re-education,Patient/Caregiver Education,Self-Care/Home Management,Soft Tissue Mobilization,Taping, Therapeutic Activities, Therapeutic Exercises Modalities Cold Pack/Ice Massage,Electric Stimulation,Hot Packs, Infrared Therapy,Iontophoresis ,Traction- Mechanical, Ultrasound Next Visit Focus/Plan Next Note Type Treatment Note Next Visit Plan Review HEP, progression of postural re-education, strengthening and soft tissue mobilization. Modalities as indicated for healing and pain management. Plan of Care Dates Plan of Care Start Date 05/23/21 Plan of Care End Date 07/22/21 Electronically Signed by: Kristina Pearson, PT 05/23/21 3624 Please Sign and Return: I have reviewed this Plan of Care and certify that the skilled therapy services above are required to meet the patient?s needs. Physician Signature Date Printed Name and Credentials Clinical Instructor Signature Printed Name and Credentials
--- NOTE | 2021-05-28 15:38 | PT.OTN ---
Current Diagnoses Postural kyphosis, thoracic region (05/28/21) Weakness (05/28/21) Strain of muscle, fascia and tendon of lower back, initial encounter (05/28/21) Physical Therapy Treatment Note PT-OP-A Visit Information Start: 05/22/21 16:27 Freq: Status: Active Protocol: Document 05/28/21 12:58 SAK (Rec: 05/28/21 13:51 SAK [id number]) Out-Patient Physical Therapy Visit Information Visit Information Visit Type Treatment Note Visit Start Time 12:59 Visit Stop Time 13:45 Total Visit Minutes 46 Visit Number 2 Evaluation Information Evaluation Date 05/23/21 Precautions Precautions osteopenia PT-OP-B Current Condition Start: 05/22/21 16:27 Freq: Status: Active Protocol: Document 05/23/21 15:19 SAK (Rec: 05/23/21 16:14 SAK [id number]) Current Condition History of Current Condition Onset Date 04/14/21 Current Complaints back pain History of Current Condition moved a large hanging [employer] plant ; reached up to get plant off hook, heavier than she thought, also held it away from her while she carried it . Experienced pain immediately after which has persisted. She reports today the pain is improving but is still a problem in the lower right ribs in front, the side, and in back, mild to moderate depending on lifting or exerting herself. Saw Dr. Parsons, received osteopathic treatment, somewhat helpful. Having pain moving in bed, bending, doing usual activities and exercises. Stopped doing regular exercise program. Usually does weight lifting for bone density, yoga and pilates, uses 1/2 roll along her spine for stretching shoulders. Some burning feeling, denies N/T. 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 Parsons. Currently 2 more PT appointmentsscheduled. 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 Pain 3/ 10 today. Has a few questions about the exercises. PT-OP-H Neuro Start: 05/22/21 16:27 Freq: Status: Active Protocol: Document 05/23/21 15:19 SAK (Rec: 05/23/21 20:33 [facility] [id number]) Sensation Evaluation Gross Sensation Gross Sensation WNL Comments Summary Comments denies N/T PT-OP-J Posture/Palpation/Skin Start: 05/22/21 16:27 Freq: Status: Active Protocol: Document 05/23/21 15:19 SAK (Rec: 05/23/21 20:33 [facility] [id number]) Posture Evaluation Position Standing Head/C-Spine Posture Forward Head T-Spine Posture Increased Kyphosis Shoulder Posture (L) Rounded,(R) Rounded Scapula Posture (L) Protracted,(R) Protracted Pelvis Posture Anteriorly Tilted Palpation Assessment Location thoracic spine Palpation Findings Soft Tissue Tightness,Muscle Guarding,Tenderness PT-OP-K Range of Motion Start: 05/22/21 16:27 Freq: Status: Active Protocol: Document 05/23/21 15:19 SAK (Rec: 05/23/21 20:33 [facility] [id number]) Cervical Spine Range of Motion Cervical Spine Active Comments WNL Lumbar Spine Range of Motion Lumbar Spine Active ROM Limitations Soft Tissue Tightness,Pain Comments moderate decrease due to pain Shoulder Goniometric Range of Motion Shoulder ROM Limitations Shoulder ROM Limitations Soft Tissue Tightness,Pain Comments shoulder elevation limited to 155 with c/o pain in thoracic spine PT-OP-L Special Tests Start: 05/22/21 16:27 Freq: Status: Active Protocol: Document 05/23/21 15:19 SAK (Rec: 05/23/21 20:33 [facility] [id number]) Special Tests Lumbar Spine Special Tests Straight Leg Raise Test Results negative PT-OP-M Strength Start: 05/22/21 16:27 Freq: Status: Active Protocol: Document 05/23/21 15:19 SAK (Rec: 05/23/21 20:33 [facility] [id number]) Trunk Strength Trunk Manual Muscle Testing Flexion 3- Fair- Extension 3- Fair- Comments limited by pain PT-OP-Q Treatments Start: 05/22/21 16:27 Freq: Status: Active Protocol: Document 05/28/21 12:58 [facility] (Rec: 05/28/21 13:51 [facility] [id number]) Cardio Equipment Recumbent Stepper (Sci-Fit) Duration (Minutes) 5 Resistance 1 Seat Position 9 Therapeutic Exercises Supine Exercises LTR Reps/Minutes 10x Comments cues for slow movement, activation of abdominals segmental bridge Reps/Minutes 10x pelvic tilt and TrA Reps/Minutes 10x Comments add Kegel supine DLS Equipment Used 1/2 roll Reps/Minutes 10' Comments challenged by single UE hor ab , single leg fall out, single leg lift Prone Exercises cat/cow Reps/Minutes 10x Comments mirror for visual feedback; cues to increase flex l/s, inc ext t/s Sidelying Exercises open book Reps/Minutes 5x Comments verbal and manual cues for segmental movement, pain-free ROM Standing Exercises row, should ext Resistance L1 TB Reps/Minutes 10x Self-Care/Home Management Treatment Education Patient Education Body Mechanics,Home Exercise Program,Posture PT-OP-R Modalities Start: 05/22/21 16:27 Freq: Status: Active Protocol: Document 05/23/21 15:19 [facility] (Rec: 05/23/21 20:33 [facility] [id number]) Hot Pack/Cold Pack Treatment Hot Pack Location thoracolumbar spine Patient Position Hooklying Treatment Duration (minutes) 15 Patient Tolerance Good PT-OP-T Assessment and Plan Start: 05/22/21 16:27 Freq: Status: Active Protocol: Document 05/28/21 12:58 [facility] (Rec: 05/28/21 13:51 [facility] [id number]) Physical Therapy Assessment Goals Four Impairment lacking appropriate exercise program Short Term Goal (STG) patient to be instructed in progressive therapeutic exercise program STG Duration 06/22/21 [facility] Goal (LTG) Patient to be independent and compliant in HEP focused on ROM, core stabilization and strengthening, and postural correction. LTG Duration 07/22/21 Three Impairment decreased mobility of thoracolumbar spine [facility] Goal (LTG) Patient to demonstrate thoracic and lumbar ROM WNL LTG Duration 07/22/21 Two Impairment pain as high as as 5/10 with usual activities Short Term Goal (STG) decrease pain to no greater than 3/10 with all usual activities STG Duration 06/22/21 [facility] Goal (LTG) decrase pain to no greater than 1/10 with all usual activities One Impairment decreased activity tolerance with Oswestery disability index score 28% Short Term Goal (STG) Decrease ALBA to no greater than 15% STG Duration 06/22/21 [facility] Goal (LTG) Decrease ALBA to no greater than 5% LTG Duration 07/22/21 Assessment Summary Assessment Patient demonstrating improving understanding of neutral postural alignment and core stab principles; needs moderate cues. Good facil of core stab with 1/2 roll DLS; patient reported mild discomfort at times with ther ex but overall tolerated well. Will need further functional re-education with lifting techniques. May consider soft tissue mobilization, kinesiotape depending on progress. Physical Therapy Plan Frequency and Duration Frequency of Treatment 2x/Week Duration of Treatment 8 weeks Plan of Care Start Date 05/23/21 Plan of Care End Date 07/22/21 Therapeutic Interventions Therapeutic Interventions Aquatic Therapy,Home Exercise Program,Joint Mobilizations, Manual Therapy,Neuromuscular Re-education,Patient/Caregiver Education,Self-Care/Home Management,Soft Tissue Mobilization,Taping, Therapeutic Activities, Therapeutic Exercises Modalities Cold Pack/Ice Massage,Electric Stimulation,Hot Packs, Infrared Therapy,Iontophoresis ,Traction- Mechanical, Ultrasound Next Visit Focus/Plan Next Note Type Treatment Note Next Visit Plan Continue PT per POC with review of new ther ex and tolerance for same. Consider soft tissue mobilization, continue posture and body mechanics functional education . Possible moist heat or ice after session.
--- NOTE | 2021-05-30 16:07 | PT.OTN ---
Current Diagnoses Postural kyphosis, thoracic region (05/30/21) Weakness (05/30/21) Strain of muscle, fascia and tendon of lower back, initial encounter (05/30/21) Physical Therapy Treatment Note PT-OP-A Visit Information Start: 05/22/21 16:27 Freq: Status: Active Protocol: Document 05/30/21 13:45 SAK (Rec: 05/30/21 14:32 [facility]AK [id number]) Out-Patient Physical Therapy Visit Information Visit Information Visit Type Treatment Note Visit Start Time 13:45 Visit Stop Time 14:45 Total Visit Minutes 60 Visit Number 3 Evaluation Information Evaluation Date 05/23/21 Precautions Precautions osteopenia PT-OP-B Current Condition Start: 05/22/21 16:27 Freq: Status: Active Protocol: Document 05/23/21 15:19 SAK (Rec: 05/23/21 16:14 [facility] [id number]) Current Condition History of Current Condition Onset Date 04/14/21 Current Complaints back pain History of Current Condition moved a large hanging [employer] plant ; reached up to get plant off hook, heavier than she thought, also held it away from her while she carried it . Experienced pain immediately after which has persisted. She reports today the pain is improving but is still a problem in the lower right ribs in front, the side, and in back, mild to moderate depending on lifting or exerting herself. Saw Dr. Parsons, received osteopathic treatment, somewhat helpful. Having pain moving in bed, bending, doing usual activities and exercises. Stopped doing regular exercise program. Usually does weight lifting for bone density, yoga and pilates, uses 1/2 roll along her spine for stretching shoulders. Some burning feeling, denies N/T. 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 Parsons. Currently 2 more PT appointmentsscheduled. 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 Notices when going to the right with open book exercise doesn't go as far. Has some pain when getting down onto her back, once laying down able to relax and pain subsides. Modification of gardening is allowing her to tolerate. PT-OP-H Neuro Start: 05/22/21 16:27 Freq: Status: Active Protocol: Document 05/23/21 15:19 SAK (Rec: 05/23/21 20:33 [facility] [id number]) Sensation Evaluation Gross Sensation Gross Sensation WNL Comments Summary Comments denies N/T PT-OP-J Posture/Palpation/Skin Start: 05/22/21 16:27 Freq: Status: Active Protocol: Document 05/23/21 15:19 [facility] (Rec: 05/23/21 20:33 [facility] [id number]) Posture Evaluation Position Standing Head/C-Spine Posture Forward Head T-Spine Posture Increased Kyphosis Shoulder Posture (L) Rounded,(R) Rounded Scapula Posture (L) Protracted,(R) Protracted Pelvis Posture Anteriorly Tilted Palpation Assessment Location thoracic spine Palpation Findings Soft Tissue Tightness,Muscle Guarding,Tenderness PT-OP-K Range of Motion Start: 05/22/21 16:27 Freq: Status: Active Protocol: Document 05/23/21 15:19 [facility] (Rec: 05/23/21 20:33 [facility] [id number]) Cervical Spine Range of Motion Cervical Spine Active Comments WNL Lumbar Spine Range of Motion Lumbar Spine Active ROM Limitations Soft Tissue Tightness,Pain Comments moderate decrease due to pain Shoulder Goniometric Range of Motion Shoulder ROM Limitations Shoulder ROM Limitations Soft Tissue Tightness,Pain Comments shoulder elevation limited to 155 with c/o pain in thoracic spine PT-OP-L Special Tests Start: 05/22/21 16:27 Freq: Status: Active Protocol: Document 05/23/21 15:19 SAK (Rec: 05/23/21 20:33 [facility] [id number]) Special Tests Lumbar Spine Special Tests Straight Leg Raise Test Results negative PT-OP-M Strength Start: 05/22/21 16:27 Freq: Status: Active Protocol: Document 05/23/21 15:19 [facility] (Rec: 05/23/21 20:33 [facility] [id number]) Trunk Strength Trunk Manual Muscle Testing Flexion 3- Fair- Extension 3- Fair- Comments limited by pain PT-OP-Q Treatments Start: 05/22/21 16:27 Freq: Status: Active Protocol: Document 05/30/21 13:45 [facility] (Rec: 05/30/21 14:32 [facility] [id number]) Therapeutic Exercises Supine Exercises segmental bridge Reps/Minutes 10x Prone Exercises cat/cow Reps/Minutes 10x Comments mirror for visual feedback; cues to increase flex l/s, inc ext t/s Sidelying Exercises open book Reps/Minutes 5x Comments verbal and manual cues for segmental movement, pain-free ROM Standing Exercises segmental wall roll ups Reps/Minutes 5x wall posture Reps/Minutes 3 min row, should ext Resistance L1 TB Reps/Minutes 10x Manual Therapy Treatment Soft Tissue Mobilization rhomboids, thoracic paraspinals, subscap Body Location L Mobilization Type Myofascial Release,Sustained Pressure Intensity/Depth Moderate Body Position Sidelying Self-Care/Home Management Treatment Education Other Education self-massage with tennis ball thoracic paraspinals, rhomboids PT-OP-R Modalities Start: 05/22/21 16:27 Freq: Status: Active Protocol: Document 05/30/21 13:45 [facility] (Rec: 05/30/21 16:01 [facility] [id number]) Hot Pack/Cold Pack Treatment Hot Pack Location thoracic spine, shoulder Patient Position Hooklying Treatment Duration (minutes) 15 Patient Tolerance Good PT-OP-T Assessment and Plan Start: 05/22/21 16:27 Freq: Status: Active Protocol: Document 05/30/21 13:45 [facility] (Rec: 05/30/21 14:32 [facility] [id number]) Physical Therapy Assessment Goals Four Impairment lacking appropriate exercise program Short Term Goal (STG) patient to be instructed in progressive therapeutic exercise program STG Duration 06/22/21 [facility] Goal (LTG) Patient to be independent and compliant in HEP focused on ROM, core stabilization and strengthening, and postural correction. LTG Duration 07/22/21 Three Impairment decreased mobility of thoracolumbar spine [facility] Goal (LTG) Patient to demonstrate thoracic and lumbar ROM WNL LTG Duration 07/22/21 Two Impairment pain as high as as 5/10 with usual activities Short Term Goal (STG) decrease pain to no greater than 3/10 with all usual activities STG Duration 06/22/21 [facility] Goal (LTG) decrase pain to no greater than 1/10 with all usual activities One Impairment decreased activity tolerance with Oswestery disability index score 28% Short Term Goal (STG) Decrease ALBA to no greater than 15% STG Duration 06/22/21 [employer] Goal (LTG) Decrease ALBA to no greater than 5% LTG Duration 07/22/21 [facility] Towards Goals Progress Towards Goals Progressing Toward Goals Assessment Summary Assessment Patient reporting decrease in pain, good tolerance for ther ex. Cues for segmental movement with wall roll up and open book improves performance. Physical Therapy Plan Frequency and Duration Frequency of Treatment 2x/Week Duration of Treatment 8 weeks Plan of Care Start Date 05/23/21 Plan of Care End Date 07/22/21 Therapeutic Interventions Therapeutic Interventions Aquatic Therapy,Home Exercise Program,Joint Mobilizations, Manual Therapy,Neuromuscular Re-education,Patient/Caregiver Education,Self-Care/Home Management,Soft Tissue Mobilization,Taping, Therapeutic Activities, Therapeutic Exercises Modalities Cold Pack/Ice Massage,Electric Stimulation,Hot Packs, Infrared Therapy,Iontophoresis ,Traction- Mechanical, Ultrasound Next Visit Focus/Plan Next Note Type Treatment Note Next Visit Plan Review DLS on 10/20 roll, add bird-dog, child's pose with reach to side. Further body mechanics and posture education especially related to gardening.
--- NOTE | 2021-06-04 10:08 | PT.OTN ---
Current Diagnoses Postural kyphosis, thoracic region (06/04/21) Weakness (06/04/21) Strain of muscle, fascia and tendon of lower back, initial encounter (06/04/21) Physical Therapy Treatment Note PT-OP-A Visit Information Start: 05/22/21 16:27 Freq: Status: Active Protocol: Document 06/04/21 07:31 MA (Rec: 06/04/21 08:19 MA [id number]) Out-Patient Physical Therapy Visit Information Visit Information Visit Type Treatment Note Visit Start Time 07:30 Visit Stop Time 08:10 Precautions Precautions osteopenia PT-OP-B Current Condition Start: 05/22/21 16:27 Freq: Status: Active Protocol: Document 05/23/21 15:19 SAK (Rec: 05/23/21 16:14 SAK [id number]) Current Condition History of Current Condition Onset Date 04/14/21 Current Complaints back pain History of Current Condition moved a large hanging [employer] plant ; reached up to get plant off hook, heavier than she thought, also held it away from her while she carried it . Experienced pain immediately after which has persisted. She reports today the pain is improving but is still a problem in the lower right ribs in front, the side, and in back, mild to moderate depending on lifting or exerting herself. Saw Dr. Parsons, received osteopathic treatment, somewhat helpful. Having pain moving in bed, bending, doing usual activities and exercises. Stopped doing regular exercise program. Usually does weight lifting for bone density, yoga and pilates, uses 1/2 roll along her spine for stretching shoulders. Some burning feeling, denies N/T. 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 Parsons. Currently 2 more PT appointmentsscheduled. 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 She was unable to do HEP exercises yesterday due to pain. PT-OP-H Neuro Start: 05/22/21 16:27 Freq: Status: Active Protocol: Document 05/23/21 15:19 SAK (Rec: 05/23/21 20:33 SAK [id number]) Sensation Evaluation Gross Sensation Gross Sensation WNL Comments Summary Comments denies N/T PT-OP-J Posture/Palpation/Skin Start: 05/22/21 16:27 Freq: Status: Active Protocol: Document 05/23/21 15:19 SAK (Rec: 05/23/21 20:33 SAK [id number]) Posture Evaluation Position Standing Head/C-Spine Posture Forward Head T-Spine Posture Increased Kyphosis Shoulder Posture (L) Rounded,(R) Rounded Scapula Posture (L) Protracted,(R) Protracted Pelvis Posture Anteriorly Tilted Palpation Assessment Location thoracic spine Palpation Findings Soft Tissue Tightness,Muscle Guarding,Tenderness PT-OP-K Range of Motion Start: 05/22/21 16:27 Freq: Status: Active Protocol: Document 05/23/21 15:19 SAK (Rec: 05/23/21 20:33 SAK [id number]) Cervical Spine Range of Motion Cervical Spine Active Comments WNL Lumbar Spine Range of Motion Lumbar Spine Active ROM Limitations Soft Tissue Tightness,Pain Comments moderate decrease due to pain Shoulder Goniometric Range of Motion Shoulder ROM Limitations Shoulder ROM Limitations Soft Tissue Tightness,Pain Comments shoulder elevation limited to 155 with c/o pain in thoracic spine PT-OP-L Special Tests Start: 05/22/21 16:27 Freq: Status: Active Protocol: Document 05/23/21 15:19 SAK (Rec: 05/23/21 20:33 SAK [id number]) Special Tests Lumbar Spine Special Tests Straight Leg Raise Test Results negative PT-OP-M Strength Start: 05/22/21 16:27 Freq: Status: Active Protocol: Document 05/23/21 15:19 SAK (Rec: 05/23/21 20:33 SAK [id number]) Trunk Strength Trunk Manual Muscle Testing Flexion 3- Fair- Extension 3- Fair- Comments limited by pain PT-OP-Q Treatments Start: 05/22/21 16:27 Freq: Status: Active Protocol: Document 06/04/21 07:31 MA (Rec: 06/04/21 08:19 MA [id number]) Therapeutic Exercises Supine Exercises LTR Reps/Minutes 10x Comments cues for slow movement, activation of abdominals segmental bridge Reps/Minutes 2x Comments d/c due to pain today Standing Exercises Pec stretch Standing Exercise Name doorway pec stretch-single arm at a time Side bilateral Reps/Minutes 2x 30 segmental wall roll ups Reps/Minutes 5x wall posture Reps/Minutes 3 min Other Exercises Child's Pose Other Exercise Name center and bilaterally Equipment Used counter top Reps/Minutes 3' Comments in standing today at counter due to pain Manual Therapy Treatment Soft Tissue Mobilization Paraspinals Body Location lumbar and thoracic paraspinals Mobilization Type Myofascial Release Intensity/Depth Moderate Body Position Prone rhomboids, thoracic paraspinals, subscap Body Location L Mobilization Type Myofascial Release,Sustained Pressure Intensity/Depth Moderate Body Position Sidelying PT-OP-R Modalities Start: 05/22/21 16:27 Freq: Status: Active Protocol: Document 06/04/21 07:31 MA (Rec: 06/04/21 08:19 MA [id number]) Hot Pack/Cold Pack Treatment Hot Pack Location lumbar, thoracic spine, shoulder Patient Position Hooklying Treatment Duration (minutes) 15 Patient Tolerance Good PT-OP-T Assessment and Plan Start: 05/22/21 16:27 Freq: Status: Active Protocol: Document 06/04/21 07:31 MA (Rec: 06/04/21 08:19 MA [id number]) Physical Therapy Assessment Goals Four Impairment lacking appropriate exercise program Short Term Goal (STG) patient to be instructed in progressive therapeutic exercise program STG Duration 06/22/21 Detention Goal (LTG) Patient to be independent and compliant in HEP focused on ROM, core stabilization and strengthening, and postural correction. 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 Goal (LTG) Patient to demonstrate thoracic and lumbar ROM WNL LTG Duration 07/22/21 Two Impairment pain as high as as 5/10 with usual activities Short Term Goal (STG) decrease pain to no greater than 3/10 with all usual activities STG Duration 06/22/21 Detention Goal (LTG) decrase pain to no greater than 1/10 with all usual activities One Impairment decreased activity tolerance with Oswestery disability index score 28% Short Term Goal (STG) Decrease ALBA to no greater than 15% STG Duration 06/22/21 Golf Cart Assembler Goal (LTG) Decrease ALBA to no greater than 5% LTG Duration 07/22/21 Assessment Summary Assessment Pt arrives with increased back pain today after gardening, lifting a box and hooking up heavy RV over the weekend. She is unable to do bridges this session or lay SL due to pain. Pt has some relief after pec stretch and modified child's pose in standing as well as STM to lumbar and thoracic paraspinals. Due to pt's increased pain, was unable to practice bird-dog exercise or body mechanics/posture education for gardening this session. Added child's pose fwd and laterally to HEP with instructions to modify in standing with hands on counterrop as needed for back pain this week. Encouraged pt to use heat at home and continue with gentle HEP stretches to help with pain until next session at end of week. Physical Therapy Plan Frequency and Duration Frequency of Treatment 2x/Week Duration of Treatment 8 weeks Plan of Care Start Date 05/23/21 Plan of Care End Date 07/22/21 Therapeutic Interventions Therapeutic Interventions Aquatic Therapy,Home Exercise Program,Joint Mobilizations, Manual Therapy,Neuromuscular Re-education,Patient/Caregiver Education,Self-Care/Home Management,Soft Tissue Mobilization,Taping, Therapeutic Activities, Therapeutic Exercises Modalities Cold Pack/Ice Massage,Electric Stimulation,Hot Packs, Infrared Therapy,Iontophoresis ,Traction- Mechanical, Ultrasound Next Visit Focus/Plan Next Note Type Treatment Note Next Visit Plan Review DLS on 10/20 roll, add bird-dog, child's pose with reach to side. Further body mechanics and posture education especially related to gardening.
--- NOTE | 2021-06-07 14:34 | PT.OTN ---
Current Diagnoses Postural kyphosis, thoracic region (06/07/21) Weakness (06/07/21) Strain of muscle, fascia and tendon of lower back, initial encounter (06/07/21) Physical Therapy Treatment Note PT-OP-A Visit Information Start: 05/22/21 16:27 Freq: Status: Active Protocol: Document 06/07/21 13:38 MA (Rec: 06/07/21 14:34 MA [id number]) Out-Patient Physical Therapy Visit Information Visit Information Visit Type Treatment Note Visit Start Time 13:40 Visit Stop Time 14:30 Total Visit Minutes 50 Visit Number 5 Number of IT SPECIALIST Visits 2 Precautions Precautions osteopenia PT-OP-B Current Condition Start: 05/22/21 16:27 Freq: Status: Active Protocol: Document 05/23/21 15:19 SAK (Rec: 05/23/21 16:14 SAK [id number]) Current Condition History of Current Condition Onset Date 04/14/21 Current Complaints back pain History of Current Condition moved a large hanging [employer] plant ; reached up to get plant off hook, heavier than she thought, also held it away from her while she carried it . Experienced pain immediately after which has persisted. She reports today the pain is improving but is still a problem in the lower right ribs in front, the side, and in back, mild to moderate depending on lifting or exerting herself. Saw Dr. Parsons, received osteopathic treatment, somewhat helpful. Having pain moving in bed, bending, doing usual activities and exercises. Stopped doing regular exercise program. Usually does weight lifting for bone density, yoga and pilates, uses 1/2 roll along her spine for stretching shoulders. Some burning feeling, denies N/T. 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 Parsons. Currently 2 more PT appointmentsscheduled. 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 time Hobbies PT-OP-C Subjective Start: 05/22/21 16:27 Freq: Status: Active Protocol: Document 06/07/21 13:38 MA (Rec: 06/07/21 14:34 MA [id number]) OP-PT Subjective Patient Comments Patient Comments Pt is discouraged because her back pain is still bad PT-OP-H Neuro Start: 05/22/21 16:27 Freq: Status: Active Protocol: Document 05/23/21 15:19 SAK (Rec: 05/23/21 20:33 SAK [id number]) Sensation Evaluation Gross Sensation Gross Sensation WNL Comments Summary Comments denies N/T PT-OP-J Posture/Palpation/Skin Start: 05/22/21 16:27 Freq: Status: Active Protocol: Document 05/23/21 15:19 SAK (Rec: 05/23/21 20:33 SAK [id number]) Posture Evaluation Position Standing Head/C-Spine Posture Forward Head T-Spine Posture Increased Kyphosis Shoulder Posture (L) Rounded,(R) Rounded Scapula Posture (L) Protracted,(R) Protracted Pelvis Posture Anteriorly Tilted Palpation Assessment Location thoracic spine Palpation Findings Soft Tissue Tightness,Muscle Guarding,Tenderness PT-OP-K Range of Motion Start: 05/22/21 16:27 Freq: Status: Active Protocol: Document 05/23/21 15:19 SAK (Rec: 05/23/21 20:33 [facility] [id number]) Cervical Spine Range of Motion Cervical Spine Active Comments WNL Lumbar Spine Range of Motion Lumbar Spine Active ROM Limitations Soft Tissue Tightness,Pain Comments moderate decrease due to pain Shoulder Goniometric Range of Motion Shoulder ROM Limitations Shoulder ROM Limitations Soft Tissue Tightness,Pain Comments shoulder elevation limited to 155 with c/o pain in thoracic spine PT-OP-L Special Tests Start: 05/22/21 16:27 Freq: Status: Active Protocol: Document 05/23/21 15:19 SAK (Rec: 05/23/21 20:33 SAK [id number]) Special Tests Lumbar Spine Special Tests Straight Leg Raise Test Results negative PT-OP-M Strength Start: 05/22/21 16:27 Freq: Status: Active Protocol: Document 05/23/21 15:19 SAK (Rec: 05/23/21 20:33 SAK [id number]) Trunk Strength Trunk Manual Muscle Testing Flexion 3- Fair- Extension 3- Fair- Comments limited by pain PT-OP-Q Treatments Start: 05/22/21 16:27 Freq: Status: Active Protocol: Document 06/07/21 13:38 MA (Rec: 06/07/21 14:34 MA [id number]) Therapeutic Exercises Supine Exercises DKTC Supine Exercise Name Double knee to chest and single knee to chest Side bilateral Reps/Minutes 3' LTR Reps/Minutes 10x Comments cues for slow movement, activation of abdominals segmental bridge Reps/Minutes 2x Comments d/c today due to pain pelvic tilt and TrA Reps/Minutes 10x Comments add Kegel Prone Exercises cat/cow Prone Exercise Name manual and verbal cues for lumbar spine movement Reps/Minutes 10x Comments with hands on raised table to modify due to pain Other Exercises Child's Pose Other Exercise Name center and bilaterally Equipment Used counter top Reps/Minutes 3' Comments in standing today at counter due to pain Manual Therapy Treatment Soft Tissue Mobilization Paraspinals Body Location lumbar and thoracic paraspinals Mobilization Type Myofascial Release Intensity/Depth Moderate Body Position Prone rhomboids, thoracic paraspinals, subscap Body Location L Mobilization Type Myofascial Release,Sustained Pressure Intensity/Depth Moderate Body Position Sidelying PT-OP-R Modalities Start: 05/22/21 16:27 Freq: Status: Active Protocol: Document 06/07/21 13:38 MA (Rec: 06/07/21 14:34 MA [id number]) Hot Pack/Cold Pack Treatment Hot Pack Location lumbar, thoracic spine, shoulder Patient Position Hooklying Treatment Duration (minutes) 15 Patient Tolerance Good Comments laying on hot pack during supine exercises PT-OP-T Assessment and Plan Start: 05/22/21 16:27 Freq: Status: Active Protocol: Document 06/07/21 13:38 MA (Rec: 06/07/21 14:34 MA [id number]) Physical Therapy Assessment Goals Four Impairment lacking appropriate exercise program Short Term Goal (STG) patient to be instructed in progressive therapeutic exercise program STG Duration 06/22/21 Ski Topper Goal (LTG) Patient to be independent and compliant in HEP focused on ROM, core stabilization and strengthening, and postural correction. LTG Duration 07/22/21 Three Impairment decreased mobility of thoracolumbar spine Residential Goal (LTG) Patient to demonstrate thoracic and lumbar ROM WNL LTG Duration 07/22/21 Two Impairment pain as high as as 5/10 with usual activities Short Term Goal (STG) decrease pain to no greater than 3/10 with all usual activities STG Duration 06/22/21 Ski Topper Goal (LTG) decrase pain to no greater than 1/10 with all usual activities One Impairment decreased activity tolerance with Oswestery disability index score 28% Short Term Goal (STG) Decrease ALBA to no greater than 15% STG Duration 06/22/21 Ski Topper Goal (LTG) Decrease ALBA to no greater than 5% LTG Duration 07/22/21 Assessment Summary Assessment Kayleigh continues to have increased LBP. She feels STM to paraspinals and between shoulder blades helped last session. Pt was able to complete supine exercises today while on hot pack to reduce LBP. Focused on core activation throughout exercises with pt having decreaesd pain when focusing on tightening abdominals. Kayleigh is having difficulty getting on and off floor since LBP increased last weekend after gardening but did not feel she could practice this session. Will attept postural education for gardening and floor transfers next session. Physical Therapy Plan Frequency and Duration Frequency of Treatment 2x/Week Duration of Treatment 8 weeks Plan of Care Start Date 05/23/21 Plan of Care End Date 07/22/21 Therapeutic Interventions Therapeutic Interventions Aquatic Therapy,Home Exercise Program,Joint Mobilizations, Manual Therapy,Neuromuscular Re-education,Patient/Caregiver Education,Self-Care/Home Management,Soft Tissue Mobilization,Taping, Therapeutic Activities, Therapeutic Exercises Modalities Cold Pack/Ice Massage,Electric Stimulation,Hot Packs, Infrared Therapy,Iontophoresis ,Traction- Mechanical, Ultrasound Next Visit Focus/Plan Next Note Type Treatment Note Next Visit Plan Review DLS on 10/20 roll, add bird-dog, child's pose with reach to side. Further body mechanics and posture education especially related to gardening.
--- NOTE | 2021-06-27 16:51 | PT.OTN ---
Current Diagnoses Postural kyphosis, thoracic region (06/27/21) Weakness (06/27/21) Strain of muscle, fascia and tendon of lower back, initial encounter (06/27/21) Physical Therapy Treatment Note PT-OP-A Visit Information Start: 05/22/21 16:27 Freq: Status: Active Protocol: Document 06/27/21 16:42 SAK (Rec: 06/27/21 16:50 SAK [id number]) Out-Patient Physical Therapy Visit Information Visit Information Visit Type Treatment Note Visit Start Time 13:45 Visit Stop Time 14:30 Total Visit Minutes 45 Visit Number 6 Number of BRAIN SURGEON Visits 2 Precautions Precautions osteopenia PT-OP-B Current Condition Start: 05/22/21 16:27 Freq: Status: Active Protocol: Document 05/23/21 15:19 SAK (Rec: 05/23/21 16:14 SAK [id number]) Current Condition History of Current Condition Onset Date 04/14/21 Current Complaints back pain History of Current Condition moved a large hanging [employer] plant ; reached up to get plant off hook, heavier than she thought, also held it away from her while she carried it . Experienced pain immediately after which has persisted. She reports today the pain is improving but is still a problem in the lower right ribs in front, the side, and in back, mild to moderate depending on lifting or exerting herself. Saw Dr. Parsons, received osteopathic treatment, somewhat helpful. Having pain moving in bed, bending, doing usual activities and exercises. Stopped doing regular exercise program. Usually does weight lifting for bone density, yoga and pilates, uses 1/2 roll along her spine for stretching shoulders. Some burning feeling, denies N/T. 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 Parsons. Currently 2 more PT appointmentsscheduled. 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 PT-OP-H Neuro Start: 05/22/21 16:27 Freq: Status: Active Protocol: Document 05/23/21 15:19 SAK (Rec: 05/23/21 20:33 SAK [id number]) Sensation Evaluation Gross Sensation Gross Sensation WNL Comments Summary Comments denies N/T PT-OP-J Posture/Palpation/Skin Start: 05/22/21 16:27 Freq: Status: Active Protocol: Document 05/23/21 15:19 SAK (Rec: 05/23/21 20:33 SAK [id number]) Posture Evaluation Position Standing Head/C-Spine Posture Forward Head T-Spine Posture Increased Kyphosis Shoulder Posture (L) Rounded,(R) Rounded Scapula Posture (L) Protracted,(R) Protracted Pelvis Posture Anteriorly Tilted Palpation Assessment Location thoracic spine Palpation Findings Soft Tissue Tightness,Muscle Guarding,Tenderness PT-OP-K Range of Motion Start: 05/22/21 16:27 Freq: Status: Active Protocol: Document 05/23/21 15:19 SAK (Rec: 05/23/21 20:33 SAK [id number]) Cervical Spine Range of Motion Cervical Spine Active Comments WNL Lumbar Spine Range of Motion Lumbar Spine Active ROM Limitations Soft Tissue Tightness,Pain Comments moderate decrease due to pain Shoulder Goniometric Range of Motion Shoulder ROM Limitations Shoulder ROM Limitations Soft Tissue Tightness,Pain Comments shoulder elevation limited to 155 with c/o pain in thoracic spine PT-OP-L Special Tests Start: 05/22/21 16:27 Freq: Status: Active Protocol: Document 05/23/21 15:19 SAK (Rec: 05/23/21 20:33 SAK [id number]) Special Tests Lumbar Spine Special Tests Straight Leg Raise Test Results negative PT-OP-M Strength Start: 05/22/21 16:27 Freq: Status: Active Protocol: Document 05/23/21 15:19 SAK (Rec: 05/23/21 20:33 SAK [id number]) Trunk Strength Trunk Manual Muscle Testing Flexion 3- Fair- Extension 3- Fair- Comments limited by pain PT-OP-Q Treatments Start: 05/22/21 16:27 Freq: Status: Active Protocol: Document 06/07/21 13:38 MA (Rec: 06/07/21 14:34 MA [id number]) Therapeutic Exercises Supine Exercises DKTC Supine Exercise Name Double knee to chest and single knee to chest Side bilateral Reps/Minutes 3' LTR Reps/Minutes 10x Comments cues for slow movement, activation of abdominals segmental bridge Reps/Minutes 2x Comments d/c today due to pain pelvic tilt and TrA Reps/Minutes 10x Comments add Kegel Prone Exercises cat/cow Prone Exercise Name manual and verbal cues for lumbar spine movement Reps/Minutes 10x Comments with hands on raised table to modify due to pain Other Exercises Child's Pose Other Exercise Name center and bilaterally Equipment Used counter top Reps/Minutes 3' Comments in standing today at counter due to pain Manual Therapy Treatment Soft Tissue Mobilization Paraspinals Body Location lumbar and thoracic paraspinals Mobilization Type Myofascial Release Intensity/Depth Moderate Body Position Prone rhomboids, thoracic paraspinals, subscap Body Location L Mobilization Type Myofascial Release,Sustained Pressure Intensity/Depth Moderate Body Position Sidelying PT-OP-R Modalities Start: 05/22/21 16:27 Freq: Status: Active Protocol: Document 06/07/21 13:38 MA (Rec: 06/07/21 14:34 MA [id number]) Hot Pack/Cold Pack Treatment Hot Pack Location lumbar, thoracic spine, shoulder Patient Position Hooklying Treatment Duration (minutes) 15 Patient Tolerance Good Comments laying on hot pack during supine exercises PT-OP-T Assessment and Plan Start: 05/22/21 16:27 Freq: Status: Active Protocol: Document 06/27/21 16:42 SAK (Rec: 06/27/21 16:50 SAK [id number]) Physical Therapy Assessment Assessment Summary Assessment x-ray 06/21/21. Interval compression fractures of T6 and T8. True chronicity is uncertain and MR imaging is recommended to assess for bone edema and possible vertebroplasty as treatment. Consider interventional radiology consult. 2. There is mild degenerative vertebral body height loss at T9 and a chronic compression fracture of T12 which is stable. 3. Slight progression of mild thoracic scoliosis. PT today consisted of patient education regarding posture, bed positioning and mobility for spinal protection, modfication of her HEP to promote gentle spinal stabilization without increasing her pain. Kinesiotape trial to bilateral thoracic spine for pain management. Discontinue use of resistance and yoga at this time. Exercise in pain-free ROM and intensity. Use of heat encouraged, especially in am. Patient demonstrated good understanding of all. Physical Therapy Plan Frequency and Duration Frequency of Treatment 2x/Week Duration of Treatment 8 weeks Plan of Care Start Date 05/23/21 Plan of Care End Date 07/22/21 Therapeutic Interventions Therapeutic Interventions Aquatic Therapy,Home Exercise Program,Joint Mobilizations, Manual Therapy,Neuromuscular Re-education,Patient/Caregiver Education,Self-Care/Home Management,Soft Tissue Mobilization,Taping, Therapeutic Activities, Therapeutic Exercises Modalities Cold Pack/Ice Massage,Electric Stimulation,Hot Packs, Infrared Therapy,Iontophoresis ,Traction- Mechanical, Ultrasound Next Visit Focus/Plan Next Note Type Treatment Note Next Visit Plan Assess response to modifications to HEP, pain management, gentle progression as tolerated.
--- NOTE | 2021-07-09 15:15 | PT.OTN ---
Current Diagnoses Postural kyphosis, thoracic region (07/09/21) Weakness (07/09/21) Strain of muscle, fascia and tendon of lower back, initial encounter (07/09/21) Physical Therapy Treatment Note PT-OP-A Visit Information Start: 05/22/21 16:27 Freq: Status: Active Protocol: Document 07/09/21 15:15 SAK (Rec: 07/11/21 09:37 [facility] [id number]) Out-Patient Physical Therapy Visit Information Visit Information Visit Type Treatment Note Visit Start Time 15:17 Visit Stop Time 16:10 Total Visit Minutes 53 Visit Number 7 Evaluation Information Evaluation Date 05/23/21 Precautions Precautions osteopenia PT-OP-B Current Condition Start: 05/22/21 16:27 Freq: Status: Active Protocol: Document 05/23/21 15:19 SAK (Rec: 05/23/21 16:14 SAK [id number]) Current Condition History of Current Condition Onset Date 04/14/21 Current Complaints back pain History of Current Condition moved a large hanging [employer] plant ; reached up to get plant off hook, heavier than she thought, also held it away from her while she carried it . Experienced pain immediately after which has persisted. She reports today the pain is improving but is still a problem in the lower right ribs in front, the side, and in back, mild to moderate depending on lifting or exerting herself. Saw Dr. Parsons, received osteopathic treatment, somewhat helpful. Having pain moving in bed, bending, doing usual activities and exercises. Stopped doing regular exercise program. Usually does weight lifting for bone density, yoga and pilates, uses 1/2 roll along her spine for stretching shoulders. Some burning feeling, denies N/T. 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 Parsons. Currently 2 more PT appointmentsscheduled. 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 PT-OP-H Neuro Start: 05/22/21 16:27 Freq: Status: Active Protocol: Document 05/23/21 15:19 SAK (Rec: 05/23/21 20:33 [facility] [id number]) Sensation Evaluation Gross Sensation Gross Sensation WNL Comments Summary Comments denies N/T PT-OP-J Posture/Palpation/Skin Start: 05/22/21 16:27 Freq: Status: Active Protocol: Document 05/23/21 15:19 SAK (Rec: 05/23/21 20:33 [facility] [id number]) Posture Evaluation Position Standing Head/C-Spine Posture Forward Head T-Spine Posture Increased Kyphosis Shoulder Posture (L) Rounded,(R) Rounded Scapula Posture (L) Protracted,(R) Protracted Pelvis Posture Anteriorly Tilted Palpation Assessment Location thoracic spine Palpation Findings Soft Tissue Tightness,Muscle Guarding,Tenderness PT-OP-K Range of Motion Start: 05/22/21 16:27 Freq: Status: Active Protocol: Document 05/23/21 15:19 SAK (Rec: 05/23/21 20:33 [facility] [id number]) Cervical Spine Range of Motion Cervical Spine Active Comments WNL Lumbar Spine Range of Motion Lumbar Spine Active ROM Limitations Soft Tissue Tightness,Pain Comments moderate decrease due to pain Shoulder Goniometric Range of Motion Shoulder ROM Limitations Shoulder ROM Limitations Soft Tissue Tightness,Pain Comments shoulder elevation limited to 155 with c/o pain in thoracic spine PT-OP-L Special Tests Start: 05/22/21 16:27 Freq: Status: Active Protocol: Document 05/23/21 15:19 SAK (Rec: 05/23/21 20:33 [facility] [id number]) Special Tests Lumbar Spine Special Tests Straight Leg Raise Test Results negative PT-OP-M Strength Start: 05/22/21 16:27 Freq: Status: Active Protocol: Document 05/23/21 15:19 SAK (Rec: 05/23/21 20:33 [facility] [id number]) Trunk Strength Trunk Manual Muscle Testing Flexion 3- Fair- Extension 3- Fair- Comments limited by pain PT-OP-Q Treatments Start: 05/22/21 16:27 Freq: Status: Active Protocol: Document 07/09/21 15:15 [facility] (Rec: 07/11/21 09:37 [facility] [id number]) Cardio Equipment Recumbent Stepper (Sci-Fit) Duration (Minutes) 5 Resistance 1 Other cues for upright posture Therapeutic Exercises Supine Exercises TrA with gluteal set Reps/Minutes 10x5 posture press Reps/Minutes 10x5 TrA with pillow squeeze Reps/Minutes 10x5 TrA Reps/Minutes 10x5 DKTC Supine Exercise Name Double knee to chest and single knee to chest Side bilateral Reps/Minutes 3' LTR Comments hold segmental bridge Comments hold Prone Exercises cat/cow Comments hold Other Exercises Child's Pose Comments hold Manual Therapy Treatment Soft Tissue Mobilization Paraspinals Body Location lumbar and thoracic paraspinals Mobilization Type Myofascial Release Intensity/Depth Moderate Body Position Prone Comments prone pillow rhomboids, thoracic paraspinals, subscap Body Location L Mobilization Type Myofascial Release,Sustained Pressure Intensity/Depth Moderate Body Position Prone Comments prone pillow Taping thoracolumbar Body Location bilateral thoracic paraspinals Treatment Focus pain relief, inhibition Type of Tape kinesiotape Skin Inspection intact Comments paper off tension Self-Care/Home Management Treatment Education Patient Education Body Mechanics,Home Exercise Program,Posture Other Education modifications of HEP due to diagnosis of compression fractures. PT-OP-R Modalities Start: 05/22/21 16:27 Freq: Status: Active Protocol: Document 07/09/21 15:15 [facility] (Rec: 07/11/21 09:39 [facility] [id number]) Hot Pack/Cold Pack Treatment Hot Pack Location lumbar, thoracic spine, shoulder Patient Position Hooklying Treatment Duration (minutes) 15 Patient Tolerance Good Comments seated with hot pack at back PT-OP-T Assessment and Plan Start: 05/22/21 16:27 Freq: Status: Active Protocol: Document 07/09/21 15:15 [facility] (Rec: 07/11/21 09:37 [facility] [id number]) Physical Therapy Assessment Goals Four Impairment lacking appropriate exercise program Short Term Goal (STG) patient to be instructed in progressive therapeutic exercise program STG Duration 06/22/21 Tennis Director Goal (LTG) Patient to be independent and compliant in HEP focused on ROM, core stabilization and strengthening, and postural correction. LTG Duration 07/22/21 Three Impairment decreased mobility of thoracolumbar spine Tennis Director Goal (LTG) Patient to demonstrate thoracic and lumbar ROM WNL LTG Duration 07/22/21 Two Impairment pain as high as as 5/10 with usual activities Short Term Goal (STG) decrease pain to no greater than 3/10 with all usual activities STG Duration 06/22/21 Tennis Director Goal (LTG) decrase pain to no greater than 1/10 with all usual activities One Impairment decreased activity tolerance with Oswestery disability index score 28% Short Term Goal (STG) Decrease ALBA to no greater than 15% STG Duration 06/22/21 Tennis Director Goal (LTG) Decrease ALBA to no greater than 5% LTG Duration 07/22/21 Physical Therapy Plan Frequency and Duration Frequency of Treatment 2x/Week Duration of Treatment 8 weeks Plan of Care Start Date 05/23/21 Plan of Care End Date 07/22/21 Therapeutic Interventions Therapeutic Interventions Aquatic Therapy,Home Exercise Program,Joint Mobilizations, Manual Therapy,Neuromuscular Re-education,Patient/Caregiver Education,Self-Care/Home Management,Soft Tissue Mobilization,Taping, Therapeutic Activities, Therapeutic Exercises Modalities Cold Pack/Ice Massage,Electric Stimulation,Hot Packs, Infrared Therapy,Iontophoresis ,Traction- Mechanical, Ultrasound Next Visit Focus/Plan Next Note Type Treatment Note Next Visit Plan Assess response to modifications to HEP, pain management, gentle progression as tolerated. Update written HEP.
--- NOTE | 2021-07-22 12:28 | PT.OTRE ---
Current Diagnoses Postural kyphosis, thoracic region (07/22/21) Weakness (07/22/21) Strain of muscle, fascia and tendon of lower back, initial encounter (07/22/21) Past Medical History (Last Updated 07/04/21 @ 17:08 by Winston Parsons DO) Abnormal Pap smear of cervix Acute low back pain Acute right-sided thoracic back pain Allergies Body posture problem Borderline hypothyroidism Cataract fragments of both eyes following cataract surgery Cervical somatic dysfunction Chicken pox (~1957) Colon polyps (~2018) Cranial somatic dysfunction Degeneration of spine Frequent UTI GERD (gastroesophageal reflux disease) Hearing loss Hip fracture (~1998) History of cataract removal with insertion of prosthetic lens (~2015) Hx of total hip arthroplasty Lumbar region somatic dysfunction Measles (~1953) Mumps Oral herpes Osteoarthritis of right hand (~2015) Osteopenia (~1997) Osteoporosis (~2000) Pain aggravated by anxiety Pelvic somatic dysfunction Pneumonia (~2011) Precancerous skin lesion (~2017) Recurrent sinusitis Rib pain on right side Rubella (~1963) Sacral region somatic dysfunction Sarcoidosis of lung Screening for breast cancer Segmental and somatic dysfunction of abdomen and other regions Segmental and somatic dysfunction of rib cage Shoulder pain (~2017) Thoracic compression fracture Thoracic region somatic dysfunction Vision disorder Surgical History (Last Reviewed 02/01/21 @ 10:17 by Winston Parsons DO) Anesthesia History of cataract removal with insertion of prosthetic lens (~2015) Hx of total hip arthroplasty Visit Care Team Role Provider Type Winston Parsons DO Attending Provider Physician Primary Care Provider Referring Provider Specialty: [facility] Address: [address] [place] [address], [facility] Email: Physical Therapy Re-Evaluation PT-OP-A Visit Information Start: 05/22/21 16:27 Freq: Status: Active Protocol: Document 07/22/21 11:05 [facility] (Rec: 07/22/21 12:11 [facility] [id number]) Out-Patient Physical Therapy Visit Information Visit Information Visit Start Time 11:04 Visit Stop Time 12:04 Total Visit Minutes 60 Visit Number 8 Evaluation Information Evaluation Date 05/23/21 Precautions Precautions osteopenia PT-OP-B Current Condition Start: 05/22/21 16:27 Freq: Status: Active Protocol: Document 05/23/21 15:19 SAK (Rec: 05/23/21 16:14 [facility] [id number]) Current Condition History of Current Condition Onset Date 04/14/21 Current Complaints back pain History of Current Condition moved a large hanging [employer] plant ; reached up to get plant off hook, heavier than she thought, also held it away from her while she carried it . Experienced pain immediately after which has persisted. She reports today the pain is improving but is still a problem in the lower right ribs in front, the side, and in back, mild to moderate depending on lifting or exerting herself. Saw Dr. Parsons, received osteopathic treatment, somewhat helpful. Having pain moving in bed, bending, doing usual activities and exercises. Stopped doing regular exercise program. Usually does weight lifting for bone density, yoga and pilates, uses 1/2 roll along her spine for stretching shoulders. Some burning feeling, denies N/T. 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 Parsons. Currently 2 more PT appointmentsscheduled. 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 Branham at [facility]. Feels different pain; sharp pain gone, thinks post- op pain. States has some swelling left. Was told to take it easy for a few days, hasn't done any exercise. Can now move and get out of bed without severe pain Nothing seems to help the pain. No follow-up appointment with Dr. Branham. Sees Dr. Parsons on Thursday. Doing some stretching before gets out of bed helps as well. PT-OP-H Neuro Start: 05/22/21 16:27 Freq: Status: Active Protocol: Document 05/23/21 15:19 [facility] (Rec: 05/23/21 20:33 [facility] [id number]) Sensation Evaluation Gross Sensation Gross Sensation WNL Comments Summary Comments denies N/T PT-OP-J Posture/Palpation/Skin Start: 05/22/21 16:27 Freq: Status: Active Protocol: Document 05/23/21 15:19 [facility] (Rec: 05/23/21 20:33 [facility] [id number]) Posture Evaluation Position Standing Head/C-Spine Posture Forward Head T-Spine Posture Increased Kyphosis Shoulder Posture (L) Rounded,(R) Rounded Scapula Posture (L) Protracted,(R) Protracted Pelvis Posture Anteriorly Tilted Palpation Assessment Location thoracic spine Palpation Findings Soft Tissue Tightness,Muscle Guarding,Tenderness PT-OP-K Range of Motion Start: 05/22/21 16:27 Freq: Status: Active Protocol: Document 05/23/21 15:19 [facility] (Rec: 05/23/21 20:33 [facility] [id number]) Cervical Spine Range of Motion Cervical Spine Active Comments WNL Lumbar Spine Range of Motion Lumbar Spine Active ROM Limitations Soft Tissue Tightness,Pain Comments moderate decrease due to pain Shoulder Goniometric Range of Motion Shoulder ROM Limitations Shoulder ROM Limitations Soft Tissue Tightness,Pain Comments shoulder elevation limited to 155 with c/o pain in thoracic spine PT-OP-L Special Tests Start: 05/22/21 16:27 Freq: Status: Active Protocol: Document 05/23/21 15:19 [facility] (Rec: 05/23/21 20:33 [facility] [id number]) Special Tests Lumbar Spine Special Tests Straight Leg Raise Test Results negative PT-OP-M Strength Start: 05/22/21 16:27 Freq: Status: Active Protocol: Document 05/23/21 15:19 [facility] (Rec: 05/23/21 20:33 [facility] [id number]) Trunk Strength Trunk Manual Muscle Testing Flexion 3- Fair- Extension 3- Fair- Comments limited by pain PT-OP-Q Treatments Start: 05/22/21 16:27 Freq: Status: Active Protocol: Document 07/22/21 11:05 [facility] (Rec: 07/22/21 12:11 [facility] [id number]) Cardio Equipment Recumbent Stepper (Sci-Fit) Duration (Minutes) 7 Resistance 1 Other cues for upright posture Therapeutic Exercises Sitting Exercises cat/cow Reps/Minutes 3x Comments gentle sit to stand' Equipment Used yardstick Reps/Minutes 5x Comments cues for neutral posture postural correction Reps/Minutes 3 min Standing Exercises postural education Equipment Used yardstick Reps/Minutes 4 min wall posture Reps/Minutes 3 min Therapeutic Activity Therapeutic Activity gardening simulation Reps/Minutes 6 min Comments patient concerned over what she can and can't do safely Manual Therapy Treatment Soft Tissue Mobilization rhomboids, thoracic paraspinals, subscap Body Location L Mobilization Type Myofascial Release,Sustained Pressure Intensity/Depth Moderate Body Position Sidelying Comments avoiding procedure area Self-Care/Home Management Treatment Education Other Education appropriate use of ice and heat resume HEP gently, no bands at first PT-OP-R Modalities Start: 05/22/21 16:27 Freq: Status: Active Protocol: Document 07/22/21 11:05 [facility] (Rec: 07/22/21 12:11 [facility] [id number]) Hot Pack/Cold Pack Treatment Cold Pack Location lumbar, thoracic Patient Position Sidelying Treatment Duration (minutes) 10 Patient Tolerance Good PT-OP-T Assessment and Plan Start: 05/22/21 16:27 Freq: Status: Active Protocol: Document 07/22/21 11:05 [facility] (Rec: 07/22/21 12:11 [facility] [id number]) Physical Therapy Assessment Goals Four Impairment lacking appropriate exercise program Short Term Goal (STG) patient to be instructed in progressive therapeutic exercise program 07/22/21: has been instructed, has not performed since vertebroplasty 07/17/21 STG Duration 06/22/21 Fdc Goal (LTG) Patient to be independent and compliant in HEP focused on ROM, core stabilization and strengthening, and postural correction. 07/22/21: was making good progress prior to vertebroplasty LTG Duration 08/05/21 Three Impairment decreased mobility of thoracolumbar spine Fdc Goal (LTG) Patient to demonstrate thoracic and lumbar ROM WFL LTG Duration goal discontinued due to compression fracture Two Impairment pain as high as as 5/10 with usual activities Short Term Goal (STG) decrease pain to no greater than 3/10 with all usual activities 07/22/21: goal mostly achieved, still some pain at 5/10 but not as sharp since procedure STG Duration 06/22/21 Horseradish Maker Goal (LTG) decrase pain to no greater than 1/10 with all usual activities LTG Duration 08/05/21 One Impairment decreased activity tolerance with Oswestery disability index score 28% Fdc Goal (LTG) Decrease ALBA to no greater than 15% as measure of improved activity tolerance and function 07/22/21: decreased to 22% LTG Duration 08/05/21 Progress Towards Goals Progress Towards Goals Slow Progress due to Medical Issues Assessment Summary Assessment Patient returns to PT after having vertebroplasty, reporting some improvement in pain, hasn't resumed HEP yet. Started with gentle ther ex today as well as continued patient instruction on posture and body mechanics for spinal protection including with sit to stand and gentle modified gardening. she demonstrated good understanding. she is to resume her HEP gently without resistance and plans to return to 1 further PT visit to upgrade and modify HEP as needed and have PT do further manual work for pain management prior to going to [place] for the winter. Physical Therapy Plan Frequency and Duration Frequency of Treatment 1-2 visits Duration of Treatment 2 weeks Plan of Care Start Date 07/22/21 Plan of Care End Date 08/05/21 Therapeutic Interventions Therapeutic Interventions Aquatic Therapy,Home Exercise Program,Joint Mobilizations, Manual Therapy,Neuromuscular Re-education,Patient/Caregiver Education,Self-Care/Home Management,Soft Tissue Mobilization,Taping, Therapeutic Activities, Therapeutic Exercises Modalities Cold Pack/Ice Massage,Electric Stimulation,Hot Packs, Infrared Therapy,Iontophoresis ,Traction- Mechanical, Ultrasound Next Visit Focus/Plan Next Note Type Treatment Note Next Visit Plan Final visit prior to patient going [facility] for the winter, assure safety and independence with HEP, body mechanics. STM as indicated for reduction of muscle tension and pain. Patient may benefit from further PT in [place].
--- NOTE | 2021-07-22 12:28 | PT.OPPOC ---
Physical, Occupational & Speech Therapy At [facility] Current Diagnoses Postural kyphosis, thoracic region (07/22/21) Weakness (07/22/21) Strain of muscle, fascia and tendon of lower back, initial encounter (07/22/21) Visit Care Team Role Provider Type Winston Parsons DO Attending Provider Physician Primary Care Provider Referring Provider Specialty: [facility] Address: [address] [place] [address], [facility] Email: Plan Of Care PT-OP-T Assessment and Plan Start: 05/22/21 16:27 Freq: Status: Active Protocol: Document 07/22/21 11:05 [facility] (Rec: 07/22/21 12:11 [facility] [id number]) Physical Therapy Assessment Goals Four Impairment lacking appropriate exercise program Short Term Goal (STG) patient to be instructed in progressive therapeutic exercise program 07/22/21: has been instructed, has not performed since vertebroplasty 07/17/21 STG Duration 06/22/21 Community Living Instructor Goal (LTG) Patient to be independent and compliant in HEP focused on ROM, core stabilization and strengthening, and postural correction. 07/22/21: was making good progress prior to vertebroplasty LTG Duration 08/05/21 Three Impairment decreased mobility of thoracolumbar spine Shelter Goal (LTG) Patient to demonstrate thoracic and lumbar ROM WFL LTG Duration goal discontinued due to compression fracture Two Impairment pain as high as as 5/10 with usual activities Short Term Goal (STG) decrease pain to no greater than 3/10 with all usual activities 07/22/21: goal mostly achieved, still some pain at 5/10 but not as sharp since procedure STG Duration 06/22/21 Shelter Goal (LTG) decrase pain to no greater than 1/10 with all usual activities LTG Duration 08/05/21 One Impairment decreased activity tolerance with Oswestery disability index score 28% Shelter Goal (LTG) Decrease ALBA to no greater than 15% as measure of improved activity tolerance and function 07/22/21: decreased to 22% LTG Duration 08/05/21 Progress Towards Goals Progress Towards Goals Slow Progress due to Medical Issues Assessment Summary Assessment Patient returns to PT after having vertebroplasty, reporting some improvement in pain, hasn't resumed HEP yet. Started with gentle ther ex today as well as continued patient instruction on posture and body mechanics for spinal protection including with sit to stand and gentle modified gardening. she demonstrated good understanding. she is to resume her HEP gently without resistance and plans to return to 1 further PT visit to upgrade and modify HEP as needed and have PT do further manual work for pain management prior to going to [place] for the winter. Physical Therapy Plan Frequency and Duration Frequency of Treatment 1-2 visits Duration of Treatment 2 weeks Plan of Care Start Date 07/22/21 Plan of Care End Date 08/05/21 Therapeutic Interventions Therapeutic Interventions Aquatic Therapy,Home Exercise Program,Joint Mobilizations, Manual Therapy,Neuromuscular Re-education,Patient/Caregiver Education,Self-Care/Home Management,Soft Tissue Mobilization,Taping, Therapeutic Activities, Therapeutic Exercises Modalities Cold Pack/Ice Massage,Electric Stimulation,Hot Packs, Infrared Therapy,Iontophoresis ,Traction- Mechanical, Ultrasound Next Visit Focus/Plan Next Note Type Treatment Note Next Visit Plan Final visit prior to patient going [place] for the winter, assure safety and independence with HEP, body mechanics. STM as indicated for reduction of muscle tension and pain. Patient may benefit from further PT in [place]. Plan of Care Dates Plan of Care Start Date 07/22/21 Plan of Care End Date 08/05/21 Electronically Signed by: Kristina Pearson, PT 07/22/21 [id number] Please Sign and Return: I have reviewed this Plan of Care and certify that the skilled therapy services above are required to meet the patient?s needs. Physician Signature Date Printed Name and Credentials Clinical Instructor Signature Printed Name and Credentials
--- NOTE | 2021-07-30 13:13 | PT.OTN ---
Current Diagnoses Postural kyphosis, thoracic region (07/29/21) Weakness (07/29/21) Strain of muscle, fascia and tendon of lower back, initial encounter (07/29/21) Physical Therapy Treatment Note PT-OP-A Visit Information Start: 05/22/21 16:27 Freq: Status: Active Protocol: Document 07/29/21 12:58 SAK (Rec: 07/29/21 13:52 SAK [id number]) Out-Patient Physical Therapy Visit Information Visit Information Visit Start Time 13:00 Visit Stop Time 14:00 Total Visit Minutes 60 Visit Number 9 Precautions Precautions osteopenia PT-OP-B Current Condition Start: 05/22/21 16:27 Freq: Status: Active Protocol: Document 05/23/21 15:19 SAK (Rec: 05/23/21 16:14 SAK [id number]) Current Condition History of Current Condition Onset Date 04/14/21 Current Complaints back pain History of Current Condition moved a large hanging [employer] plant ; reached up to get plant off hook, heavier than she thought, also held it away from her while she carried it . Experienced pain immediately after which has persisted. She reports today the pain is improving but is still a problem in the lower right ribs in front, the side, and in back, mild to moderate depending on lifting or exerting herself. Saw Dr. Parsons, received osteopathic treatment, somewhat helpful. Having pain moving in bed, bending, doing usual activities and exercises. Stopped doing regular exercise program. Usually does weight lifting for bone density, yoga and pilates, uses 1/2 roll along her spine for stretching shoulders. Some burning feeling, denies N/T. 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 Parsons. Currently 2 more PT appointmentsscheduled. 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 Parsons Thursday, he prescribed Oxycodone. Told doctor she felt pain getting worse again. I feel like my back is getting bad again. Also reports persistent and worsening sharp stabbing left hip pain. Movement increases the pain, sleep ok when gets into position. Pain 4/10 right now back and hip, has been as bad as 10. Doesn't think due to any exercises, or any activity at home though not sure. Sees surgeon . Supposed to be leaving for [place] for the winter. PT-OP-H Neuro Start: 05/22/21 16:27 Freq: Status: Active Protocol: Document 05/23/21 15:19 SAK (Rec: 05/23/21 20:33 [facility] [id number]) Sensation Evaluation Gross Sensation Gross Sensation WNL Comments Summary Comments denies N/T PT-OP-J Posture/Palpation/Skin Start: 05/22/21 16:27 Freq: Status: Active Protocol: Document 05/23/21 15:19 SAK (Rec: 05/23/21 20:33 [facility] [id number]) Posture Evaluation Position Standing Head/C-Spine Posture Forward Head T-Spine Posture Increased Kyphosis Shoulder Posture (L) Rounded,(R) Rounded Scapula Posture (L) Protracted,(R) Protracted Pelvis Posture Anteriorly Tilted Palpation Assessment Location thoracic spine Palpation Findings Soft Tissue Tightness,Muscle Guarding,Tenderness PT-OP-K Range of Motion Start: 05/22/21 16:27 Freq: Status: Active Protocol: Document 05/23/21 15:19 SAK (Rec: 05/23/21 20:33 [facility] [id number]) Cervical Spine Range of Motion Cervical Spine Active Comments WNL Lumbar Spine Range of Motion Lumbar Spine Active ROM Limitations Soft Tissue Tightness,Pain Comments moderate decrease due to pain Shoulder Goniometric Range of Motion Shoulder ROM Limitations Shoulder ROM Limitations Soft Tissue Tightness,Pain Comments shoulder elevation limited to 155 with c/o pain in thoracic spine PT-OP-L Special Tests Start: 05/22/21 16:27 Freq: Status: Active Protocol: Document 05/23/21 15:19 [facility] (Rec: 05/23/21 20:33 [facility] [id number]) Special Tests Lumbar Spine Special Tests Straight Leg Raise Test Results negative PT-OP-M Strength Start: 05/22/21 16:27 Freq: Status: Active Protocol: Document 05/23/21 15:19 SAK (Rec: 05/23/21 20:33 [facility] [id number]) Trunk Strength Trunk Manual Muscle Testing Flexion 3- Fair- Extension 3- Fair- Comments limited by pain PT-OP-Q Treatments Start: 05/22/21 16:27 Freq: Status: Active Protocol: Document 07/29/21 12:58 [facility] (Rec: 07/29/21 13:52 [facility] [id number]) Cardio Equipment Recumbent Stepper (Sci-Fit) Duration (Minutes) 8 Resistance 1 Other cues for upright posture, long spine Manual Therapy Treatment Soft Tissue Mobilization rhomboids, thoracic paraspinals, subscap Body Location L Mobilization Type Myofascial Release,Sustained Pressure Intensity/Depth Moderate Body Position Sidelying Comments avoiding procedure area Self-Care/Home Management Treatment Education Other Education use of heat in car; heated care seat Activities Self-Care/Home Management Activities seated stretches for in car PT-OP-R Modalities Start: 05/22/21 16:27 Freq: Status: Active Protocol: Document 07/29/21 12:58 [facility] (Rec: 07/30/21 13:12 [facility] [id number]) Hot Pack/Cold Pack Treatment Hot Pack Location lumbar, thoracic spine, shoulder Patient Position Hooklying Treatment Duration (minutes) 15 Patient Tolerance Good Comments seated with hot pack at back PT-OP-T Assessment and Plan Start: 05/22/21 16:27 Freq: Status: Active Protocol: Document 07/29/21 12:58 [facility] (Rec: 07/29/21 13:52 [facility] [id number]) Physical Therapy Assessment Goals Four Impairment lacking appropriate exercise program Short Term Goal (STG) patient to be instructed in progressive therapeutic exercise program 07/22/21: has been instructed, has not performed since vertebroplasty 07/17/21 STG Duration 06/22/21 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 07/22/21: was making good progress prior to vertebroplasty LTG Duration 08/05/21 Three Impairment decreased mobility of thoracolumbar spine Alf Goal (LTG) Patient to demonstrate thoracic and lumbar ROM WFL LTG Duration goal discontinued due to compression fracture Two Impairment pain as high as as 5/10 with usual activities Short Term Goal (STG) decrease pain to no greater than 3/10 with all usual activities 07/22/21: goal mostly achieved, still some pain at 5/10 but not as sharp since procedure STG Duration 06/22/21 Dry Starch Operator Goal (LTG) decrase pain to no greater than 1/10 with all usual activities LTG Duration 08/05/21 One Impairment decreased activity tolerance with Oswestery disability index score 28% Alf Goal (LTG) Decrease ALBA to no greater than 15% as measure of improved activity tolerance and function 07/22/21: decreased to 22% LTG Duration 08/05/21 Assessment Summary Assessment Patient reports felt ok after PT, mostly education last session, but pain has been increasing over the past week. Sees doctor 07/31/21. Anticipate discharge from PT after that visit due to patient plans to go [place] for the winter, but awaiting word from patient about recommendations from physician . Physical Therapy Plan Frequency and Duration Frequency of Treatment 1-2 visits Duration of Treatment 2 weeks Plan of Care Start Date 07/22/21 Plan of Care End Date 08/05/21 Therapeutic Interventions Therapeutic Interventions Aquatic Therapy,Home Exercise Program,Joint Mobilizations, Manual Therapy,Neuromuscular Re-education,Patient/Caregiver Education,Self-Care/Home Management,Soft Tissue Mobilization,Taping, Therapeutic Activities, Therapeutic Exercises Modalities Cold Pack/Ice Massage,Electric Stimulation,Hot Packs, Infrared Therapy,Iontophoresis ,Traction- Mechanical, Ultrasound Next Visit Focus/Plan Next Note Type Discharge Summary Next Visit Plan anticipate discharge from PT unless patient puts travel on hold pending physician recommendation.
--- NOTE | 2021-10-09 08:32 | PT.OPDS ---
Current Diagnoses Postural kyphosis, thoracic region (07/29/21) Weakness (07/29/21) Strain of muscle, fascia and tendon of lower back, initial encounter (07/29/21) Visit Care Team Role Provider Type Winston Parsons DO Attending Provider Physician Primary Care Provider Referring Provider Specialty: Family Practice Address: [address] [place] [address], [address] Email: Visit Number Visit Number 9 Discharge Summary PT-OP-B Current Condition Start: 05/22/21 16:27 Freq: Status: Active Protocol: Document 05/23/21 15:19 SAK (Rec: 05/23/21 16:14 SAK [id number]) Current Condition History of Current Condition Onset Date 04/14/21 Current Complaints back pain History of Current Condition moved a large hanging [employer] plant ; reached up to get plant off hook, heavier than she thought, also held it away from her while she carried it . Experienced pain immediately after which has persisted. She reports today the pain is improving but is still a problem in the lower right ribs in front, the side, and in back, mild to moderate depending on lifting or exerting herself. Saw Dr. Parsons, received osteopathic treatment, somewhat helpful. Having pain moving in bed, bending, doing usual activities and exercises. Stopped doing regular exercise program. Usually does weight lifting for bone density, yoga and pilates, uses 1/2 roll along her spine for stretching shoulders. Some burning feeling, denies N/T. 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 Parsons. Currently 2 more PT appointmentsscheduled. 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 Parsons Thursday, he prescribed Oxycodone. Told doctor she felt pain getting worse again. I feel like my back is getting bad again. Also reports persistent and worsening sharp stabbing left hip pain. Movement increases the pain, sleep ok when gets into position. Pain 4/10 right now back and hip, has been as bad as 10. Doesn't think due to any exercises, or any activity at home though not sure. Sees surgeon . Supposed to be leaving for [place] for the winter. PT-OP-H Neuro Start: 05/22/21 16:27 Freq: Status: Active Protocol: Document 05/23/21 15:19 SAK (Rec: 05/23/21 20:33 [facility] [id number]) Sensation Evaluation Gross Sensation Gross Sensation WNL Comments Summary Comments denies N/T PT-OP-J Posture/Palpation/Skin Start: 05/22/21 16:27 Freq: Status: Active Protocol: Document 05/23/21 15:19 SAK (Rec: 05/23/21 20:33 [facility] [id number]) Posture Evaluation Position Standing Head/C-Spine Posture Forward Head T-Spine Posture Increased Kyphosis Shoulder Posture (L) Rounded,(R) Rounded Scapula Posture (L) Protracted,(R) Protracted Pelvis Posture Anteriorly Tilted Palpation Assessment Location thoracic spine Palpation Findings Soft Tissue Tightness,Muscle Guarding,Tenderness PT-OP-K Range of Motion Start: 05/22/21 16:27 Freq: Status: Active Protocol: Document 05/23/21 15:19 SAK (Rec: 05/23/21 20:33 [facility] [id number]) Cervical Spine Range of Motion Cervical Spine Active Comments WNL Lumbar Spine Range of Motion Lumbar Spine Active ROM Limitations Soft Tissue Tightness,Pain Comments moderate decrease due to pain Shoulder Goniometric Range of Motion Shoulder ROM Limitations Shoulder ROM Limitations Soft Tissue Tightness,Pain Comments shoulder elevation limited to 155 with c/o pain in thoracic spine PT-OP-L Special Tests Start: 05/22/21 16:27 Freq: Status: Active Protocol: Document 05/23/21 15:19 SAK (Rec: 05/23/21 20:33 [facility] [id number]) Special Tests Lumbar Spine Special Tests Straight Leg Raise Test Results negative PT-OP-M Strength Start: 05/22/21 16:27 Freq: Status: Active Protocol: Document 05/23/21 15:19 [facility] (Rec: 05/23/21 20:33 [facility] [id number]) Trunk Strength Trunk Manual Muscle Testing Flexion 3- Fair- Extension 3- Fair- Comments limited by pain PT-OP-T Assessment and Plan Start: 05/22/21 16:27 Freq: Status: Active Protocol: Document 10/09/21 08:31 [facility] (Rec: 10/09/21 08:32 [facility] [id number]) Physical Therapy Plan Discharge Physical Therapy Discharge Reasons No Longer Attending PT
== END 2021-10-10 09:56 ==
LOC: PHYS 13:00
PROVIDERS: PCP Family Medicine; Referring Provider Family Medicine; Visit Provider Family Medicine
DX: S39.012A Strain of muscle, fascia and tendon of lower back, initial encounter (principal); M40.04 Postural kyphosis, thoracic region; R53.1 Weakness
CPT/HCPCS: 97110; 97140; 97162; 97530; 97535

== ENCOUNTER → 2022-02-10 09:23 | Outpatient (CLI) | payer MEDICARE, OTHER, SELFPAY ==
[2022-02-10 13:55] LABS: COVID-19 CEPHEID PCR (VTM/NP) Negative (Negative)
== END ==
PROVIDERS: PCP Family Medicine; Visit Provider Family Medicine Sleep Medicine
DX: Z20.822 Contact with and (suspected) exposure to COVID-19 (principal)
CPT/HCPCS: C9803; U0003; U0005

== ENCOUNTER → 2022-02-24 12:50 | Outpatient (CLI) | payer MEDICARE, OTHER, SELFPAY ==
[2022-02-24 14:15] LABS: Alanine Aminotransferase 18 IU/L (<35); Albumin 4.1 g/dL (3.5-5.0); Albumin Globulin Ratio 1.2 (1.0-2.8); Alkaline Phosphatase 80 U/L (38-126); Aspartate Aminotransferase 31 IU/L (14-36); BUN Creatinine Ratio 24.2 (6-22); Bilirubin Total 0.3 mg/dL (0.2-1.3); Blood Urea Nitrogen 15 mg/dL (7-17); Calcium 9.1 mg/dL (8.4-10.2); Carbon Dioxide 28 mmol/L (22-32); Chloride 100 mmol/L (98-107); Estimated Glomerular Filt Rate > 60 mL/min (>60); Globulin 3.5 g/dL (1.7-4.1); Glucose 89 mg/dL (80-110); HEMOLYSIS < 15 (0-50); Potassium 4.5 mmol/L (3.4-5.1); Sodium 134 mmol/L (137-145); Total Protein 7.6 g/dL (6.3-8.2)
== END ==
PROVIDERS: PCP Family Medicine; Referring Provider Internal Medicine Critical Care Medicine; Visit Provider Internal Medicine Critical Care Medicine
DX: D86.9 Sarcoidosis, unspecified (principal)
CPT/HCPCS: 36415; 80053

== ENCOUNTER → 2022-03-24 08:06 | Outpatient (CLI) | payer MEDICARE, OTHER, SELFPAY ==
--- NOTE | 2022-03-24 | DI.CT.S_ITS ---
PROCEDURE: CT CHEST HIGH RESOLUTION INDICATIONS: Sarcoidosis/abnormal PFT/dyspnea TECHNIQUE: Noncontrast 1.0 and 5.0 mm thick contiguous axial sections from the pulmonary apex to the posterior costophrenic angles, with 7 mm thick coronal and sagittal MIP reformats. 1 mm thick dynamic expiratory images acquired through the upper, mid, and lower lungs. 1.0 mm thick axial sections acquired from the karol to the posterior costophrenic angles in the prone end-inspiration position. For radiation dose reduction, the following was used: automated exposure control, adjustment of mA and/or kV according to patient size. COMPARISON: Outside Facility, RG, CT THORAX W/WO CONTRAST, 12/03/2020, 13:38. FINDINGS: Image quality: Excellent. Lungs: No air trapping on dynamic images. There is mild bronchiectasis in the right lower lobe. No bronchial wall thickening. Irregular pleural thickening along the caudal aspect of the right major fissure and much lesser extent along the left major fissure decreased in extent compared to the prior study. Biapical irregular interstitial thickening. Diffuse subpleural reticulonodular pattern with micro nodules. Scattered patchy nodular opacities are present in the lower lung belle bilaterally and to a lesser extent in the upper lobes decreased in severity in the upper lobes compared to the prior study. There are no ground-glass opacities. Pleura: No pleural effusions or pneumothorax. Mediastinum: Heart size is normal. No pericardial effusion. Thoracic aorta and central pulmonary arteries are normal in size. Esophagus is normal in caliber. Bones and chest wall: Compression fractures with vertebroplasty change T6, and T8. Compression fractures without stabilization in T9 caliber T12, and L1. No suspicious bony lesions. Abdomen: Visualized upper abdominal solid organs and bowel loops appear normal. IMPRESSION: 1. Slight interval improvement in size and extent several patchy nodular opacities mainly in the upper lung zones compared to the prior study. 2. Persistent patchy pleural-based and subpleural reticulonodular pattern consistent with known history of sarcoidosis. 3. Mild, stable right lower lobe bronchiectasis. 4. No new adenopathy in the mediastinum or hilar regions. 5. Interval vertebral body compression fractures and vertebroplasty of T6 and T8. Dictated by: Stephanie Son M.D. on 04/02/2022 at 18:10 Approved by: Stephanie Son M.D. on 04/02/2022 at 18:23
== END ==
PROVIDERS: PCP Family Medicine; Referring Provider Internal Medicine Critical Care Medicine; Visit Provider Internal Medicine Critical Care Medicine
DX: D86.9 Sarcoidosis, unspecified (principal); J47.9 Bronchiectasis, uncomplicated; R94.2 Abnormal results of pulmonary function studies; R06.00 Dyspnea, unspecified; R06.89 Other abnormalities of breathing
CPT/HCPCS: 71250

== ENCOUNTER → 2022-05-02 09:36 | Outpatient (CLI) | payer MEDICARE, OTHER, SELFPAY ==
[2022-05-02 14:42] LABS: Calcium 24 Hour Urine 171 mg/day (100-300); Calcium Urine Random 9.5 mg/dL; Collection Time Urine 24 Hours; Total Volume Urine 1800 mL
[2022-05-06 12:11] LABS: M-Spike % Not Observed % (Not Observed); Protein, Total, 24 hr urine 74 mg/24 hr (30-150); Total Urine Protein 4.1 mg/dL (Not Estab.)
== END ==
PROVIDERS: Internal Medicine Rheumatology; PCP Family Medicine
DX: M80.00XA Age-related osteoporosis with current pathological fracture, unspecified site, initial encounter for fracture (principal); S22.050A Wedge compression fracture of T5-T6 vertebra, initial encounter for closed fracture
CPT/HCPCS: 82340; 84156; 84166

== ENCOUNTER → 2022-12-02 07:34 | Outpatient (CLI) | payer MEDICARE, OTHER, SELFPAY ==
[2022-12-02 08:40] LABS: Add Manual Diff / Slide Review NO; Basophils Absolute Auto 100 /uL (0-100); Eosinophils Absolute Auto 500 /uL (0-450); Eosinophils Percent Auto 9.6 % (2-4); Hematocrit 38.5 % (36-46); Hemoglobin 13.1 g/dL (12.0-16.0); Lymphocytes Absolute Auto 1900 /uL (1100-4500); Lymphocytes Percent Auto 38.5 % (25-40); Mean Corpuscular Hemoglobin 31.1 PG (26-34); Mean Corpuscular Volume 91.5 fL (80-100); Monocytes Absolute Auto 400 /uL (0-900); Neutrophils Absolute Auto 2100 /uL (1500-7000); Neutrophils Percent Auto 41.9 % (50-75); Platelet Count 325 X10^3/uL (150-400); Red Blood Cell Count 4.21 X10^6/uL (4.0-5.2); Red Cell Distribution Width 13.1 % (11.6-14.8); White Blood Cell Count 4.9 X10^3/uL (4.5-11.0)
[2022-12-02 09:31] LABS: Alanine Aminotransferase 19 IU/L (<35); Albumin 3.9 g/dL (3.5-5.0); Albumin Globulin Ratio 1.1 (1.0-2.8); Alkaline Phosphatase 71 U/L (38-126); Aspartate Aminotransferase 25 IU/L (14-36); BUN Creatinine Ratio 22.1 (6-22); Bilirubin Total 0.5 mg/dL (0.2-1.3); Blood Urea Nitrogen 15 mg/dL (7-17); Calcium 8.8 mg/dL (8.4-10.2); Carbon Dioxide 29 mmol/L (22-32); Chloride 100 mmol/L (98-107); Cholesterol 230 mg/dL (140-199); Estimated Glomerular Filt Rate > 60 mL/min (>60); Globulin 3.7 g/dL (1.7-4.1); Glucose 86 mg/dL (80-110); HDL Cholesterol 51 mg/dL (40-60); HEMOLYSIS < 15 (0-50); LDL Cholesterol Calculated 155 mg/dL (<100); Potassium 4.2 mmol/L (3.4-5.1); Sodium 135 mmol/L (137-145); Total Protein 7.6 g/dL (6.3-8.2); Triglycerides 119 mg/dL (35-150)
[2022-12-02 09:42] LABS: Vitamin D 25 Hydroxy (D3) 46.4 ng/mL (30.0-100.0)
== END ==
PROVIDERS: PCP Family Medicine; Referring Provider Family Medicine; Visit Provider Family Medicine
DX: E78.2 Mixed hyperlipidemia (principal); E55.9 Vitamin D deficiency, unspecified
CPT/HCPCS: 36415; 80053; 80061; 82306; 85025

== ENCOUNTER → 2023-03-09 13:26 | Outpatient (CLI) | payer MEDICARE, OTHER, SELFPAY | PROVIDERS: PCP Family Medicine; Referring Provider Family Medicine; Visit Provider Family Medicine | DX: D86.0 Sarcoidosis of lung (principal) | CPT/HCPCS: 93005; 93010 ==

== ENCOUNTER → 2023-04-06 06:49 | Outpatient (CLI) | payer MEDICARE, OTHER, SELFPAY ==
--- NOTE | 2023-04-06 06:50 | DI.ECHO.S_ITS ---
[facility]---------+ [facility] +---------+ : : [address] [place] : : : : [id number] : : : : Phone: [phone]---------+ Echocardiogram Report + + :Name: EDDIE TREJO Study Date: 04/06/2023 Height: 60 in : :[facility] ReadingLocation: Weight: 100 lb : : Gender: Female BSA: 1.4 m2 : :: 1950 Age: 73 yrs BP: 136/82 mmHg: :Reason For Study: DYSPNEA ON EXERTION, SARCOIDOSIS : :Ordering Physician: SANTOSH SILVEIRA : :Mariya Ma Performed By: Marcia Carrillo : :Referring: LIV BARROW : + + Interpretation Summary 1) Normal left ventricular thickness, size, wall motion, and systolic function (EF 55-60%). Left ventricular global longitudinal strain average is -16.6%. 2) Normal right ventricular size and function. 3) There is mild aortic regurgitation. 4) No prior Echo available for comparison. Procedure: A two-dimensional transthoracic echocardiogram with color flow and Doppler was performed. The study quality was technically adequate. There is no prior echocardiogram noted for this patient. The patient was in sinus rhythm with heart rates between 64-70 bpm during the exam. Left Ventricle: The left ventricle is normal in size and wall thickness. The ejection fraction is estimated to be 55-60%. Left ventricular global longitudinal strain average is -16.6%. Left ventricular systolic function appears normal without focal wall motion abnormalities. Diastolic parameters suggest a relaxation abnormality of the left ventricle, consistent with probable normal filling pressures. Right Ventricle: The right ventricle is normal in size and function. Atria: The left atrial size is normal. Right atrial size is normal. There is no Doppler evidence for an interatrial shunt. Mitral Valve: The mitral valve is normal in structure and function. There is trace mitral regurgitation. Aortic Valve: The aortic valve is trileaflet. The aortic valve opens well. There is no aortic valve stenosis. There is mild aortic regurgitation. Tricuspid Valve: The tricuspid valve is normal in structure and function. There is mild tricuspid regurgitation. The right ventricular systolic pressure is estimated to be at least 22 mmHg based on an estimated right atrial pressure of 3 mm Hg. Pulmonic Valve: The pulmonic valve leaflets are thin and pliable; valve motion is normal. There is trace pulmonic regurgitation. Great Vessels: The aortic root is normal size. The dimensions of the ascending aorta are normal. The IVC is of normal diameter and collapses greater than 50% with a sniff. This suggests a low right atrial pressure of 3 mm Hg. Pericardium/ Pleura There is no pericardial effusion. There is no pleural effusion. MMode/2D Measurements & Calculations LVIDd: 4.2 cm LVOT diam: 2.0 cm LVIDs: 2.8 cm Ao root diam: 3.0 cm FS: 34.8 % asc Aorta Diam: 3.2 cm EPSS: 0.67 cm Ao Arch Diam (Prox Trans): 2.0 cm IVSd: 0.53 cm LVPWd: 0.61 cm LV kidd. diameter/BSA (cm/m^2): 3.1 LV sys. diameter/BSA (cm/m^2): 2.0 LA A2 area: 10.9 cm2 RA long axis: 3.6 cm LA A4 area: 9.2 cm2 RA area: 6.0 cm2 LA length (vol): 3.3 cm RA vol: 8.3 ml LA vol: 25.5 ml RA : 6.0 ml/m2 LA vol index: 18.3 ml/m2 IVC diam: 1.6 cm RVD1 (basal): 2.8 cm RVD2 (mid): 2.5 cm TAPSE: 2.0 cm Doppler Measurements & Calculations Ao V2 max: 109.1 cm/sec LVOT Max Elgin: 95.4 cm/sec Ao V2 mean: 74.5 cm/sec LV V1 max P.6 mmHg Ao max P.8 mmHg LV V1 VTI: 21.9 cm Ao mean P.5 mmHg KYLIE(I,D): 2.9 cm2 Ao V2 VTI: 22.7 cm KYLIE(V,D): 2.6 cm2 sev ratio: 0.96 KYLIE indexed to BSA (cm^2/m^2): 2.1 MV E max elgin: 63.0 cm/sec TR max elgin: 218.4 cm/sec MV A max elgin: 85.9 cm/sec TR max P.1 mmHg MV E/A: 0.73 PA V2 max: 78.0 cm/sec Med Peak E' Elgin: 5.7 cm/sec PA V2 mean: 55.6 cm/sec E/E' med: 11.1 PA mean P.4 mmHg Lat Peak E' Elgin: 5.7 cm/sec PA pr(Accel): 31.0 mmHg E/E' lat: 11.1 E/e' average: 11.1 MV dec time: 0.22 sec SV(LVOT): 65.9 ml Reading Physician:09:06 AM
== END ==
PROVIDERS: PCP Family Medicine; Referring Provider Family Medicine; Visit Provider Family Medicine
DX: I08.2 Rheumatic disorders of both aortic and tricuspid valves (principal); D86.0 Sarcoidosis of lung; R06.09 Other forms of dyspnea
CPT/HCPCS: 93306; 93356

== ENCOUNTER → 2023-05-29 07:39 | Outpatient (CLI) | payer MEDICARE, OTHER, SELFPAY ==
[2023-05-29 09:17] LABS: Cholesterol 198 mg/dL (140-199); HDL Cholesterol 43 mg/dL (40-60); LDL Cholesterol Calculated 133 mg/dL (<100); Triglycerides 110 mg/dL (35-150)
== END ==
PROVIDERS: PCP Family Medicine; Referring Provider Family Medicine; Visit Provider Family Medicine
DX: E78.2 Mixed hyperlipidemia (principal); M80.00XS Age-related osteoporosis with current pathological fracture, unspecified site, sequela
CPT/HCPCS: 36415; 80061

== ENCOUNTER → 2023-06-19 | Outpatient (CLI) | payer MEDICARE, OTHER, SELFPAY ==
--- NOTE | 2023-06-19 | DI.MG.S_ITS ---
BILATERAL DIGITAL SCREENING MAMMOGRAM 3D/2D WITH CAD: 06/19/2023 CLINICAL: Routine screening. Comparison is made to exams dated: 04/24/2021 mammogram - [facility], 05/10/2019 mammogram, and 04/29/2017 mammogram - [facility]. Both breasts are heterogeneously dense, which may obscure small masses (category c / 51-75% glandular tissue). Current study was also evaluated with a Computer Aided Detection (CAD) system. There are benign calcifications in the left breast. No significant masses, calcifications, or other findings are seen in either breast. There has been no significant interval change. IMPRESSION: BENIGN There is no mammographic evidence of malignancy. A 1 year screening mammogram is recommended. Based on the Tyrer Cuzick model (a risk assessment model) the patient's lifetime risk is 6.9% and her 10 year risk is 6.9%. According to the ACR, ACS, and NCCN guidelines, an annual breast MRI exam along with mammogram is recommended if the patient's lifetime risk is 20% or greater. This exam was interpreted at Station ID: [id number]. NOTE: For mammograms, a report in lay terms will be sent to the patient. Approximately 15% of breast malignancies will not be visualized mammographically. In the management of a palpable breast mass, a negative mammogram must not discourage biopsy of a clinically suspicious lesion. Electronically Signed By: Stephanie arrieta/alesia:06/23/2023 08:18:10 copy to: GAGANDEEP CASE letter sent: Normal Exam ACR BI-RADS Category 2: Benign Finding(s) [id number]
--- NOTE | 2023-06-19 | DI.RAD.S_ITS ---
Bone Density Report Name: EDDIE TREJO Age: 73 Sex: Female Ethnicity: White Date of : 1950 Indication: osteopenia; prior fracture; Referring Provider: KELY SILVEIRA Study: Bone densitometry was performed. Exam Date: June 19, 2023 Accession number: [id number] Bone Density: Region BMD T-score Z-score Classification AP Spine(L1-L4) 0.902 -1.3 1.1 Osteopenia Femoral Neck (Left) 0.543 -2.8 -0.7 Osteoporosis Total Hip (Left) 0.709 -1.9 -0.1 Osteopenia Total Forearm (Left) 0.516 -1.2 1.3 Osteopenia 1/3 Forearm (Left) 0.696 0.0 2.6 Normal UD Forearm (Left) 0.339 -1.8 0.1 Osteopenia World Health Organization criteria for BMD impression classify patients as: Normal (T-score at or above -1.0), Osteopenia (T-score between -1.0 and -2.5), or Osteoporosis (T-score at or below -2.5). 10-year Fracture Risk: FRAX not reported because: Some T-score for Spine Total or Hip Total or Femoral Neck at or below -2.5 Prior hip or vertebral fracture Previous Exams: -- Region Exam Age BMD T-score BMD Change BMD Change Date g/cm2 vs Baseline vs Previous -- AP Spine (L1-L4) 06/19/2023 73 0.902 -1.3 0.035 (4.1%)# 0.035 (4.1%)# 04/24/2021 71 0.866 -1.6 Total Hip(Left) 06/19/2023 73 0.709 -1.9 -0.042 (-5.5%)# -0.042 (-5.5%)# 04/24/2021 71 0.751 -1.6 -- *Denotes significance at 95% confidence level, LSC for AP Spine = 0.022 g/cm2, LSC for Total Hip = 0.027 g/cm2 # Denotes dissimilar scan types or analysis methods Impression: The patient has established osteoporosis, based on the Left Femoral Neck T-score and the existence of a prior fracture. The patient has risk factors, including: previous fracture. No significant bone loss was observed. Discussion: HIGH RISK OF FRACTURE. BONE DENSITY IS UNDESIRABLY LOW AT ONE OR MORE SKELETAL SITES, CONSISTENT WITH POSTMENOPAUSAL OSTEOPOROSIS. This patient's lowest T-score, in a patient who has previously fractured, meets the World Health Organization's (WHO) criteria for severe osteoporosis. In untreated patients, the risk of osteoporotic fracture increases approximately two-fold for each 1.0 SD decrease in T-score. Low bone density is not the only risk factor for fracture; also consider factors such as patient's age, frailty or poor health, risk of falling, risk of injury, previous osteoporotic fracture, family history of osteoporosis, cigarette smoking, low body weight, etc. Not everyone with low bone mineral density has osteoporosis; osteomalacia and other metabolic bone disorders should also be considered. Patients who have osteoporosis should be evaluated for specific diseases and conditions (secondary causes) that may cause or contribute to bone loss. The [place] Association of Clinical Endocrinologists (AACE) and National Osteoporosis Foundation (NOF) recommend pharmacologic intervention for all postmenopausal women with a previous hip or vertebral fracture and a T-score in this range. The patient should follow a healthful lifestyle (good nutrition with adequate calcium and vitamin D, and appropriate weight-bearing exercise). Follow-Up: Consider a repeat BMD and Vertebral Fracture Assessment (VFA) exam in 2 years or sooner if medically necessary, to reassess this patient's status. Reported by: ARIAN PRECIADO M.D on 06/19/2023 11:24:00 AM.
== END ==
PROVIDERS: PCP Family Medicine; Referring Provider Family Medicine; Visit Provider Family Medicine
DX: Z12.31 Encounter for screening mammogram for malignant neoplasm of breast; E78.2 Mixed hyperlipidemia; M81.6 Localized osteoporosis [Lequesne]; Z78.0 Asymptomatic menopausal state; Z87.311 Personal history of (healed) other pathological fracture
CPT/HCPCS: 77063; 77067; 77080; 77081

== ENCOUNTER → 2023-12-07 08:17 | Outpatient (CLI) | payer MEDICARE, OTHER, SELFPAY ==
[2023-12-07 08:37] LABS: Add Manual Diff / Slide Review NO; Basophils Absolute Auto 100 /uL (0-100); Basophils Percent Auto 1.4 % (0-2); Eosinophils Absolute Auto 500 /uL (0-450); Eosinophils Percent Auto 9.4 % (2-4); Hematocrit 39.2 % (36-46); Hemoglobin 13.2 g/dL (12.0-16.0); Lymphocytes Absolute Auto 2200 /uL (1100-4500); Lymphocytes Percent Auto 41.5 % (25-40); Mean Corpuscular HGB Conc 33.6 % (30-36); Mean Corpuscular Hemoglobin 31.8 PG (26-34); Mean Corpuscular Volume 94.5 fL (80-100); Monocytes Absolute Auto 500 /uL (0-900); Monocytes Percent Auto 9.6 % (3-14); Neutrophils Absolute Auto 2000 /uL (1500-7000); Neutrophils Percent Auto 38.1 % (50-75); Platelet Count 295 X10^3/uL (150-400); Red Blood Cell Count 4.15 X10^6/uL (4.0-5.2); Red Cell Distribution Width 12.2 % (11.6-14.8); White Blood Cell Count 5.3 X10^3/uL (4.5-11.0)
[2023-12-07 08:55] LABS: Alanine Aminotransferase 34 IU/L (<35); Albumin Globulin Ratio 1.1 (1.0-2.8); Alkaline Phosphatase 74 U/L (38-126); Aspartate Aminotransferase 35 IU/L (14-36); BUN Creatinine Ratio 26.5 (6-22); Bilirubin Total 0.7 mg/dL (0.2-1.3); Blood Urea Nitrogen 18 mg/dL (7-17); Calcium 9.1 mg/dL (8.4-10.2); Carbon Dioxide 27 mmol/L (22-32); Chloride 104 mmol/L (98-107); Cholesterol 218 mg/dL (140-199); Estimated Glomerular Filt Rate > 60 mL/min (>60); Globulin 3.6 g/dL (1.7-4.1); Glucose 91 mg/dL (80-110); HDL Cholesterol 48 mg/dL (40-60); HEMOLYSIS < 15 (0-50); LDL Cholesterol Calculated 148 mg/dL (<100); Potassium 4.2 mmol/L (3.4-5.1); Sodium 139 mmol/L (137-145); Total Protein 7.6 g/dL (6.3-8.2); Triglycerides 109 mg/dL (35-150)
[2023-12-07 09:07] LABS: Vitamin D 25 Hydroxy (D3) 53.8 ng/mL (30.0-100.0)
[2023-12-07 09:21] LABS: TSH w/ Reflex to FT4 2.34 uIU/mL (0.47-4.68)
== END ==
PROVIDERS: PCP Family Medicine; Referring Provider Family Medicine; Visit Provider Family Medicine
DX: E03.9 Hypothyroidism, unspecified (principal); M81.0 Age-related osteoporosis without current pathological fracture; D86.0 Sarcoidosis of lung; E78.5 Hyperlipidemia, unspecified; E55.9 Vitamin D deficiency, unspecified
CPT/HCPCS: 36415; 80053; 80061; 82306; 84443; 85025

== ENCOUNTER 2024-05-19 07:11 | Day surgery (SDC) | payer MEDICARE, OTHER, SELFPAY ==
[2024-05-19 07:27] VITALS: BP 161/89; PULSE 89; RESP 14; TEMP 36.3; O2SAT 99
--- NOTE | 2024-05-19 07:59 | P.HP_ITS ---
History of Present Illness History of Present Illness Date Patient Seen: 05/19/24 Time Patient Seen: 07:59 Chief complaint: ORC Narrative: Kayleigh is a 74-year-old woman with a history of colon polyps. Her last colonoscopy was in 2019 and 1 small tubular adenoma was removed. She had not had any polyps during previous colonoscopies. COUNTS INCLUDE 234 BEDS AT THE [facility] Medical History (Updated 05/26/23 @ 17:21 by Ernie Parsons DO) Iliotibial band syndrome, left leg Rib pain on left side Left axis deviation POP (dyspnea on exertion) Somatic dysfunction of lower extremity Short leg syndrome, left, acquired Upper extremity somatic dysfunction Chronic bilateral thoracic back pain Chronic bilateral low back pain without sciatica Left hip pain Pain aggravated by anxiety Thoracic compression fracture Cranial somatic dysfunction Cervical somatic dysfunction Segmental and somatic dysfunction of abdomen and other regions Sacral region somatic dysfunction Pelvic somatic dysfunction Lumbar region somatic dysfunction Body posture problem Acute right-sided thoracic back pain Thoracic region somatic dysfunction Segmental and somatic dysfunction of rib cage Rib pain on right side Sarcoidosis of lung Borderline hypothyroidism Vision disorder Osteoarthritis of right hand (~2015) Pneumonia (~2011) Allergies Degeneration of spine Shoulder pain (~2017) Osteoporosis (~2000) Osteopenia (~1997) Hip fracture (~1998) Rubella (~1963) Mumps Measles (~1953) Oral herpes Chicken pox (~1957) Recurrent sinusitis Hearing loss Abnormal Pap smear of cervix Frequent UTI GERD (gastroesophageal reflux disease) Colon polyps (~2018) Precancerous skin lesion (~2017) Cataract fragments of both eyes following cataract surgery Surgical History (Updated 07/26/21 @ 11:27 by Ernie Parsons DO) Status post kyphoplasty Anesthesia History of cataract removal with insertion of prosthetic lens (~2015) Hx of total hip arthroplasty Family History Father Vascular disease Liver disease Mother Cancer Grandfather Cancer Diabetes mellitus Grandmother Congestive heart failure Grandfather History of heart disease Grandmother History of heart disease Family/Other Hypertension Social History household members: spouse Smoking Status: Never smoker second hand exposure: No alcohol intake: current substance use type: does not use Meds Home Medications and Allergies Home Medications Medication Instructions Recorded Confirmed Type valacyclovir 500 mg tablet 2,000 mg PO occasional cold sores 03/02/24 05/04/24 History sodium,potassium,mag sulfates 17.5 See Rx Instructions PO .COMPLEX 04/20/24 05/19/24 Rx gram-3.13 gram-1.6 gram oral soln #354 mL (Suprep Bowel Prep Kit) [place] 3 Fish Oil 640 mg fish oil 05/19/24 History Vitamin E-400 05/19/24 History Allergies Allergy/AdvReac Type Severity Reaction Status Date / Time nitrofurantoin Allergy Intermediate Fatigued Verified 05/19/24 07:40 Sulfa (Sulfonamide Allergy Intermediate Hives Verified 05/19/24 07:40 Antibiotics) Exam Vital Signs (past 8 hours): - 05/19/24 07:27 Temperature 97.3 F L Pulse Rate 89 Respiratory Rate 14 Blood Pressure 161/89 H Pulse Oximetry 99 Oxygen Delivery Method Room Air Oxygen Delivery Method Room Air Const General: healthy appearing Resp Effort & Inspection: normal respiratory effort Assessment & Plan Assessment and plan (1) Hx of colonic polyps: Status: Chronic Plan We discussed the risks and benefits of colonoscopy for history of colon polyps and she would like to proceed. Time-Based Coding :: [TOTAL MINUTES] spent with patient and on the chart (including review of chart, obtaining history, exam, reviewing outside data, placing orders, documenting exam and treatment plan, and counseling patient) on [DATE].
[2024-05-19 08:22] VITALS: BP 83/55; PULSE 74; RESP 12; TEMP 36.6; O2SAT 94
--- NOTE | 2024-05-19 08:24 | PM.OP.COLON ---
Operative Date/Time/Diagnoses Date of procedure: 05/19/24 Time of procedure: 08:24 Pre-op diagnosis: History of polyps Post-op diagnosis: same Procedure & Clinicians Study performed: Colonoscopy Same procedure as scheduled: Yes Surgeon: Isaac Lee Procedure Notes Procedure in detail: Surgeon: Isaac Lee MD Anesthesia: Janette Storm CRNA Procedure: The patient was brought to the endoscopy suite, placed in left lateral decubitus position. The patient was connected to monitoring devices. A time-out was performed. Sedation was administered. Once the patient was adequately sedated, a digital rectal exam was performed and was normal. The scope was then inserted and advanced to the cecum where the appendiceal orifice was identified and photographed. The scope was then slowly withdrawn over greater than 6 minutes. The mucosa was thoroughly inspected. No abnormalities were found. The scope was retroflexed in the rectum. No abnormalities were seen. The scope was straightened and removed. The patient was awakened and brought to recovery. Scope withdrawal time: 8 minutes Sedation time: 13 minutes EBL: 0 Findings: Normal colon Post-procedure Disposition: PACU
[2024-05-19 08:27] VITALS: BP 87/58; PULSE 73; RESP 13; O2SAT 95
[2024-05-19 08:32] VITALS: BP 101/62; PULSE 89; RESP 14; O2SAT 99
[2024-05-19 08:34] VITALS: BP 102/66; PULSE 87; RESP 15; TEMP 36.6; O2SAT 98
[2024-05-19] MEDS: LACTATED RINGERS 1,000 ML 42 ML IV (08:37)
== END 2024-05-19 08:34 | disposition home or self-care (01) ==
PROVIDERS: PCP Family Medicine; Referring Provider Surgery; Visit Provider Surgery
PROC: 0DJD8ZZ Inspection of Lower Intestinal Tract, Via Natural or Artificial Opening Endoscopic (ICD-10-PCS; CPT 45378; principal; 2024-05-19 08:15)
DX: Z12.11 Encounter for screening for malignant neoplasm of colon (principal); Z86.010 Personal history of colon polyps
CPT/HCPCS: G0105; J2704

== ENCOUNTER → 2024-05-23 07:16 | Outpatient (CLI) | payer MEDICARE, OTHER, SELFPAY ==
--- NOTE | 2024-05-24 19:58 | DI.NM.S_ITS ---
DATE OF SERVICE: 05/24/2024 EXERCISE PERFUSION STUDY INDICATION: History of sarcoidosis, shortness of breath. RADIOPHARMACEUTICAL: 25.1 millicurie technetium-99m Myoview IV was injected at stress and 26.4 millicurie technetium-99m Myoview IV was injected at rest. CARDIAC STRESS: The patient underwent exercise perfusion study under the supervision of an attending staff. She walked on Sriram protocol for about 4 minutes, achieved 94% of target heart rate. Resting blood pressure 162/88 and peak blood pressure 172/90 mmHg. Achieved 4.6 METS of workload. UBALDO positive 40%. Baseline rhythm sinus. During stress, patient has intermittent aberrant conduction with left bundle branch block pattern. However, no obvious ischemic changes at peak exercise or early recovery. No other significant arrhythmias seen. The patient had anginal-type of chest pain which started 2 minutes into the exercise. On a scale of 1 to 10, it increased up to eight in intensity. It started slowing down and resolved 6 minutes into the recovery. At that time, no obvious ischemic electrocardiographic changes or significant arrhythmias. RAW DATA: There is increased breast shadow. GATED STUDY: Resting LV ejection fraction 84% and stress LV ejection fraction 65% without any obvious wall motion abnormality. However, the patient has abnormal transient ischemic dilatation ratio which is 1.55. The stress LV cavity appears larger than resting LV cavity. Lung/heart ratio 0.27, which is within normal limits. Resting end-diastolic volume 45 mL. MYOCARDIAL PERFUSION: Stress supine, resting supine, and stress prone images were compared to each other. Resting supine images revealed small size, mildly decreased perfusion of distal anterior wall extending into the distal anterior septum. Resting study also revealed distal anteroseptal defect. However, those defects got significantly improved during stress prone images suggestive of breast tissue attenuation artifact. CONCLUSION: I will call this study an abnormal myocardial perfusion study in view of abnormal transient ischemic dilatation ratio 1.55. On perfusion scan, there is evidence of breast tissue attenuation artifact and on stress prone images, perfusion scan appears to be normal. However, abnormal TID suggest there is left main or multivessel coronary artery disease and in that setting, balance ischemia can reflect as normal myocardial perfusion. Poor exercise tolerance. The patient had typical anginal pain during exercise, got resolved in 6 minutes into the recovery. Rate related left bundle branch block during exercise. In view of typical anginal symptoms during exercise, abnormal TID, consider further evaluation with left heart catheterization to make sure there is no underlying significant epicardial coronary artery disease and treat as per guideline directed medical therapy. Juan JAnnaKayleigh - JANEEN/jess/SANYA doc#: [id number]/job#: [id number] dd: 05/24/2024 17:25:00 dt: 05/24/2024 19:44:00 DICTATING MD/COPIES TO: Jong Wen MD; Dr. Ernie Parsons, Primary Care Physician COPIES MNE: SHELBY; ; Dr. Ernie Parsons, Primary Care Physician
== END ==
LOC: NUCM 07:17
PROVIDERS: PCP Family Medicine; Referring Provider Family Medicine; Visit Provider Family Medicine
DX: R06.09 Other forms of dyspnea (principal); R94.39 Abnormal result of other cardiovascular function study; D86.0 Sarcoidosis of lung; E78.5 Hyperlipidemia, unspecified
CPT/HCPCS: 78452; 93017; A9502

== ENCOUNTER 2024-06-04 07:23 | Inpatient (IN) | payer MEDICARE, OTHER, SELFPAY ==
[2024-06-04] VITALS (30 sets, daily range): BP systolic 101–179; BP diastolic 59–89; PULSE 65–92; RESP 13–27; TEMP 36.1–36.8; O2SAT 93–100; BMI 19.8
--- NOTE | 2024-06-04 07:31 | DI.MRI.S_ITS ---
PROCEDURE: MR STROKE Pre- and post-contrast brain MRI, non-contrast brain MR angiogram, pre- and postcontrast neck MR angiogram INDICATIONS: double vision TECHNIQUE: Brain: Noncontrast axial T1 spin echo, axial T2 fast spin echo, sagittal and axial FLAIR, coronal T2 fast spin echo, axial gradient echo, axial diffusion and ADC through the brain. After the administration of contrast, axial 3D VIBE of the cranial vasculature and brain. Brain MRA: Non-contrast 3-D time of flight MR angiogram, with multiple lfmzxya-wshziukim-khvgzqcliv (MIP) reformats performed. Neck MRA: Axial and sagittal TruFISP through the neck. Coronal dynamic MR angiogram during administration of contrast in the arterial and venous phases, with 3-dimenstional zlegyce-lvkyfgwol-cvdcmkykpu (MIP) reformats constructed from subtraction images. COMPARISON: None. FINDINGS: Image quality: Excellent. BRAIN: CSF spaces: Ventricles are normal in size and shape. Basal cisterns are patent. No extra-axial fluid collections. Brain: No intracranial bleeds or mass effects. Gage-white matter interface is normal. Wedge-shaped restricted diffusion noted in the right inferior posterior cerebellum as well as punctate focus of restricted diffusion near the left facial colliculus in the pontine tegmentum, the level of the nucleus for the left 6th cranial nerve. Normal intravascular flow voids are present. No abnormal intracranial enhancement. Skull and face: Calvarial marrow signal is normal. Orbits appear normal. Bilateral intraocular lens replacements noted. Sinuses: Right maxillary sinus mucosal thickening and complete opacification. BRAIN MR ANGIOGRAM: Anterior circulation: Intracranial internal carotid arteries are normal in size and enhancement. The flow within the paired anterior cerebral arteries is normal and symmetric. The flow within the middle cerebral arteries is normal and symmetric. The anterior communicating artery is seen. No stenoses, occlusions, or aneurysms. Posterior circulation: The visualized portions of the vertebral arteries demonstrate normal caliber, and join to form a normal appearing basilar artery. The flow within the posterior cerebral arteries is normal and symmetric. No stenoses, occlusions, or aneurysms. NECK MR ANGIOGRAM: Carotids: Great vessels demonstrate a conventional anatomy as they arise from the aortic arch. The origins of the common carotid arteries appear patent. The calibers and courses of both common carotid arteries are normal. The bifurcation regions appear normal bilaterally. The internal carotid arteries demonstrate normal course and caliber. Posterior circulation: The origins of the vertebral arteries appear patent. More superior portions of both vertebral arteries demonstrate normal course and caliber, and join to form a normal appearing basilar artery. Miscellaneous: Subclavian arteries appear patent. Pre-contrast images through the neck show no soft tissue abnormalities. 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 Correlate for lateral gaze palsy. Unremarkable MR angiogram of the head and neck Right maxillary mucosal sinus disease Approved by: Dax Gross M.D. on 06/04/2024 at 11:48
--- NOTE | 2024-06-04 07:31 | EKG_ITS ---
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
--- NOTE | 2024-06-04 07:43 | ED_ITS ---
HPI - General Adult General Chief complaint: Eye Problems Stated complaint: sent from [facility]- double vision, dizzy Time Seen by Provider: 06/04/24 07:28 Source: patient Mode of arrival: Ambulatory History of Present Illness HPI narrative: 74-year-old female with history of pulmonary sarcoidosis followed by pulmonology, PCP Dr. Parsons had recently ordered a screening stress test to evaluate for possible cardiac causes of her shortness of breath, had abnormal nuclear medicine stress test, scheduled for heart catheterization that was performed 2 days ago 06/01/24 at [facility], was told that the coronary arteries were clear, recalls awakening from the procedure with new double vision, was told that it might be fentanyl related, procedure proximally 3:00 p.m., left recovery 5-6 p.m., still with symptoms double vision. She subsequently called office of her eye doctor Dr Cortes, who suggested to follow up on Thursday. Called her PCP Dr. Parsons, received no message back. Has persisting double vision, particularly when she looks to the right hand side. She does not take any blood thinner medications, she does not take recent or regular aspirin. Her shortness of breath is stable. She has no recent chest pain. Related Data Home Medications Medication Instructions Recorded Confirmed metoprolol succinate 25 mg 25 mg PO DAILY 06/04/24 06/04/24 tablet,extended release 24 hr nitroglycerin 0.4 mg sublingual 0.4 mg sublingual DIRECTED PRN 06/04/24 06/04/24 tablet Chest Pain Allergies Allergy/AdvReac Type Severity Reaction Status Date / Time Sulfa (Sulfonamide Allergy Intermediate Hives Verified 06/04/24 07:42 Antibiotics) nitrofurantoin AdvReac Intermediate Fatigued Verified 06/04/24 10:14 Review of Systems Review of Systems Narrative: see HPI Patient History Medical History Coronary artery disease Iliotibial band syndrome, left leg Rib pain on left side Left axis deviation POP (dyspnea on exertion) Somatic dysfunction of lower extremity Short leg syndrome, left, acquired Upper extremity somatic dysfunction Chronic bilateral thoracic back pain Chronic bilateral low back pain without sciatica Left hip pain Pain aggravated by anxiety Thoracic compression fracture Cranial somatic dysfunction Cervical somatic dysfunction Segmental and somatic dysfunction of abdomen and other regions Sacral region somatic dysfunction Pelvic somatic dysfunction Lumbar region somatic dysfunction Body posture problem Acute right-sided thoracic back pain Thoracic region somatic dysfunction Segmental and somatic dysfunction of rib cage Rib pain on right side Sarcoidosis of lung Borderline hypothyroidism Vision disorder Osteoarthritis of right hand (~2015) Pneumonia (~2011) Allergies Degeneration of spine Shoulder pain (~2018) Osteoporosis (~2000) Osteopenia (~1997) Hip fracture (~1998) Rubella (~1963) Mumps Measles (~1953) Oral herpes Chicken pox (~1957) Recurrent sinusitis Hearing loss Abnormal Pap smear of cervix Frequent UTI GERD (gastroesophageal reflux disease) Colon polyps (~2018) Precancerous skin lesion (~2017) Cataract fragments of both eyes following cataract surgery Surgical History Status post kyphoplasty Anesthesia History of cataract removal with insertion of prosthetic lens (~2015) Hx of total hip arthroplasty Family History Father Vascular disease Liver disease Mother Cancer Grandfather Cancer Diabetes mellitus Grandmother Congestive heart failure Grandfather History of heart disease Grandmother History of heart disease Family/Other Hypertension Social History household members: spouse Smoking Status: Never smoker second hand exposure: No alcohol intake: current substance use type: does not use Smoking Status: Never smoker alcohol intake frequency: holidays/special occasions only Substance Use Type: does not use Exam Narrative Exam Narrative: GENERAL: Well-developed patient, in mild distress. HEAD: Atraumatic. Normocephalic. EYES: Pupils equal round and reactive. Extraocular motions intact. No scleral icterus. No injection or drainage. ENT: Nose without bleeding, purulent drainage. Throat without erythema, tonsillar hypertrophy or exudate. Airway patent. Hearing aids removed for exam, EAC and TM exam is unremarkable. NECK: Trachea midline. Non tender CARDIOVASCULAR: Regular rate and rhythm without murmurs, gallops, or rubs. RESPIRATORY: Clear to auscultation. Breath sounds equal bilaterally. No wheezes, rales, or rhonchi. GASTROINTESTINAL: Abdomen soft, non-tender, nondistended. EXTREMITIES: No edema or joint tenderness. BACK: Nontender without deformity or crepitance. No flank tenderness. NEURO: AOx3. Pupils equal round reactive to light, some dysconjugate gaze on right lateral gaze testing, the left eye seems to not move nasally as far as normal with right lateral gaze, only slightly beyond midline. Front straight ahead gaze seems conjugate, as does her left lateral gaze conjugate, neither of which cause diplopia symptoms. On right lateral gaze testing she is has double vision symptoms, she does not seem to have double vision symptoms looking forward or to the left-hand side. Remainder of cranial nerve exam unremarkable. Motor 5/5 upper extremities, motor 5/5 lower extremities. Sensation intact to upper mid lower face, upper extremities, lower extremities. Pnwqmv-eo-[id number] testing and utbb-oc-qiks testing normal. Gait not tested but reportedly steady. SKIN: No rash or erythema of visible areas Initial Vital Signs Initial Vital Signs: Vital Signs Pulse Rate 72 06/04/24 07:31 Pulse Oximetry 99 06/04/24 07:31 Course Orders Ordered: Acetaminophen (Acetaminophen 325 Mg Tablet) 650 mg PO Q6H PRN PRN Reason: Fever/Mild Pain (1-3) Hydrocodone Bitart/Acetaminophen (Hydrocodone/Acet 5/325 Tablet) 1 tab PO Q4H PRN PRN Reason: Pain, Moderate (4-6) Al Hydrox/Mg Hydrox/Simethicone (Mag Hydrox/Alum/Simeth 30 Ml Udc) 30 ml PO Q6HR PRN PRN Reason: Dyspepsia Aspirin (Aspirin Ec 81 Mg Tablet) 81 mg PO DAILY [facility] Atorvastatin Calcium (Atorvastatin 20 Mg Tablet) 80 mg PO BEDTIME [facility] Last Admin: 06/04/24 21:44 Dose: 80 mg Documented By: MS Clopidogrel Bisulfate (Clopidogrel 75 Mg Tablet) 75 mg PO DAILY [facility] Heparin Sodium (Porcine) (Heparin 5,000 Unit/Ml Vial) 5,000 unit SUBCUT BID [facility] Last Admin: 06/04/24 21:44 Dose: 5,000 unit Documented By: MS Naloxone HCl (Naloxone 0.4 Mg/Ml Vial) 0.2 mg IV Q2MIN PRN PRN Reason: Opiate Reversal Ondansetron HCl (Ondansetron 4 Mg Odt) 4 mg PO Q8HR PRN PRN Reason: Nausea And Vomiting Sodium Chloride (Sodium Chloride 0.9% Flush) 10 ml IV BID [facility] Last Admin: 06/04/24 21:45 Dose: 10 ml Documented By: MS Discontinued Medications Aspirin (Aspirin 81 Mg Chew Tab) 324 mg PO NOW ONE Stop: 06/04/24 14:46 Last Admin: 06/04/24 14:54 Dose: 324 mg Documented By: RB Atorvastatin Calcium (Atorvastatin 20 Mg Tablet) 80 mg PO NOW ONE Stop: 06/04/24 14:46 Last Admin: 06/04/24 14:54 Dose: 80 mg Documented By: RB Clopidogrel Bisulfate (Clopidogrel 75 Mg Tablet) 300 mg PO NOW ONE Stop: 06/04/24 14:47 Last Admin: 06/04/24 14:54 Dose: 300 mg Documented By: RB Lorazepam (Lorazepam 2 Mg/Ml Inj) 2 mg IV NOW ONE Stop: 06/04/24 09:44 Last Admin: 06/04/24 09:51 Dose: 2 mg Documented By: RB Vital Signs Vital signs: Vital Signs - 8 hr 06/04/24 07:31 06/04/24 07:32 06/04/24 07:32 Temperature Pulse Rate 72 72 Respiratory Rate Blood Pressure 166/79 H Pulse Oximetry 99 99 Oxygen Delivery Method 06/04/24 07:38 06/04/24 08:00 06/04/24 08:00 Temperature 98.3 F Pulse Rate 72 67 Respiratory Rate 17 19 Blood Pressure 166/79 H 159/80 H Pulse Oximetry 99 99 Oxygen Delivery Method Room Air 06/04/24 08:30 06/04/24 08:30 06/04/24 09:37 Temperature Pulse Rate 70 68 Respiratory Rate 27 H Blood Pressure 155/75 H Pulse Oximetry 100 Oxygen Delivery Method 06/04/24 09:38 06/04/24 09:38 06/04/24 10:38 Temperature Pulse Rate 68 86 Respiratory Rate Blood Pressure 146/75 H Pulse Oximetry 99 97 Oxygen Delivery Method 06/04/24 11:00 06/04/24 11:00 06/04/24 11:01 Temperature Pulse Rate 76 Respiratory Rate 16 Blood Pressure 133/66 131/69 Pulse Oximetry 94 Oxygen Delivery Method 06/04/24 11:01 06/04/24 11:15 06/04/24 11:15 Temperature Pulse Rate 83 80 Respiratory Rate 27 H 17 Blood Pressure 120/69 Pulse Oximetry 96 94 Oxygen Delivery Method 06/04/24 11:30 06/04/24 11:30 06/04/24 11:45 Temperature Pulse Rate 77 69 Respiratory Rate 17 16 Blood Pressure 121/65 Pulse Oximetry 94 93 Oxygen Delivery Method 06/04/24 11:45 06/04/24 12:00 06/04/24 12:00 Temperature Pulse Rate 69 Respiratory Rate 15 Blood Pressure 105/63 103/61 Pulse Oximetry 93 Oxygen Delivery Method 06/04/24 12:15 06/04/24 12:15 06/04/24 12:30 Temperature Pulse Rate 70 69 Respiratory Rate 15 15 Blood Pressure 101/59 L Pulse Oximetry 93 93 Oxygen Delivery Method 06/04/24 12:30 06/04/24 12:45 06/04/24 12:45 Temperature Pulse Rate 71 Respiratory Rate 18 Blood Pressure 107/60 121/70 Pulse Oximetry 94 Oxygen Delivery Method 06/04/24 13:00 06/04/24 13:00 06/04/24 13:15 Temperature Pulse Rate 67 65 Respiratory Rate 13 15 Blood Pressure 122/66 Pulse Oximetry 96 94 Oxygen Delivery Method 06/04/24 13:15 06/04/24 13:30 06/04/24 13:30 Temperature Pulse Rate 92 H Respiratory Rate 15 Blood Pressure 116/61 118/67 Pulse Oximetry 96 Oxygen Delivery Method 06/04/24 13:45 06/04/24 13:45 06/04/24 14:00 Temperature Pulse Rate 80 78 Respiratory Rate 18 15 Blood Pressure 123/76 Pulse Oximetry 96 97 Oxygen Delivery Method 06/04/24 14:00 06/04/24 14:15 06/04/24 14:15 Temperature Pulse Rate 88 Respiratory Rate 17 Blood Pressure 137/78 128/65 Pulse Oximetry 96 Oxygen Delivery Method Medical Decision Making Lab Data Lab results reviewed: Yes I reviewed the patient's lab results. 06/05/24 04:45 06/05/24 04:45 Labs: Lab Results 06/04/24 06/04/24 Range/Units 07:50 09:00 WBC 7.2 (4.5-11.0) X10^3/uL RBC 4.17 (4.0-5.2) X10^6/uL Hgb 13.2 (12.0-16.0) g/dL Hct 39.2 (36-46) % MCV 94.0 (80-100) fL MCH 31.6 (26-34) PG MCHC 33.6 (30-36) % RDW 12.5 (11.6-14.8) % Plt Count 318 (150-400) X10^3/uL Neut % (Auto) 57.8 (50-75) % Lymph % (Auto) 28.6 (25-40) % [place] % (Auto) 8.7 (3-14) % Eos % (Auto) 3.9 (2-4) % Baso % (Auto) 1.0 (0-2) % Neut # (Auto) 4100 (9553-7232) /uL Lymph # (Auto) 2100 (5335-2132) /uL [place] # (Auto) 600 (0-900) /uL Eos # (Auto) 300 (0-450) /uL Baso # (Auto) 100 (0-100) /uL PT 11.1 (9.4-12.5) SECONDS INR 1.0 (0.9-1.3) APTT 30 (25.1-36.5) SECONDS Sodium 132 L (137-145) mmol/L Potassium 3.7 (3.4-5.1) mmol/L Chloride 102 (98-107) mmol/L Carbon Dioxide 23 (22-32) mmol/L BUN 14 (7-17) mg/dL Creatinine 0.59 (0.52-1.04) mg/dL Estimated GFR > 60 (>60) mL/min BUN/Creatinine Ratio 23.7 H (6-22) Glucose 121 H (80-110) mg/dL Calcium 9.2 (8.4-10.2) mg/dL Total Bilirubin 0.6 (0.2-1.3) mg/dL AST 30 (14-36) IU/L ALT 26 (<35) IU/L Alkaline Phosphatase 69 (38-126) U/L Total Creatine Kinase 82 (30-135) U/L Troponin I 0.054 H (0.01-0.034) ng/mL Total Protein 7.5 (6.3-8.2) g/dL Albumin 4.2 (3.5-5.0) g/dL Globulin 3.3 (1.7-4.1) g/dL Albumin/Globulin Ratio 1.3 (1.0-2.8) Urine Color Yellow Urine Appearance Clear Urine pH 6.0 (4.5-8.0) Ur Specific [place] 1.020 (1.000-1.035) Urine Protein Negative (Negative) Urine Glucose (UA) Negative (Negative) g/dL Urine Ketones 1+ H (NEGATIVE) Urine Occult Blood Negative (Negative) Urine Nitrate Negative (Negative) Urine Bilirubin Negative (NEGATIVE) Urine Urobilinogen 1.0 (0.2) E.U./dL Ur Leukocyte Esterase Negative (NEGATIVE) Urine RBC None seen (0-5/HPF) Urine WBC 0-1/hpf (0-5/HPF) Ur Squamous Epith Cells 0-1 /hpf (0-5/HPF) Urine Bacteria None seen (None) Ur Culture Indicated? Cult not indicated Vol Urine Centrifuged 10ml (spun) Imaging Data MR Brain Stroke Protocol: Radiologist's Impression: [address] [address] Magnetic Resonance Report Signed Patient: Kayleigh Arita MR#: [id number] : 1950 Acct:[id number] Age/Sex: 74 / F Date of Service: 06/04/24 Loc: ED Accession Number: [id number] Procedure: MR stroke Ordering Provider: Cuong Pappas MD PROCEDURE: MR STROKE Pre- and post-contrast brain MRI, non-contrast brain MR angiogram, pre- and postcontrast neck MR angiogram INDICATIONS: double vision TECHNIQUE: Brain: Noncontrast axial T1 spin echo, axial T2 fast spin echo, sagittal and axial FLAIR, coronal T2 fast spin echo, axial gradient echo, axial diffusion and ADC through the brain. After the administration of contrast, axial 3D VIBE of the cranial vasculature and brain. Brain MRA: Non-contrast 3-D time of flight MR angiogram, with multiple drwodzj-nyplfxcat-ygbyankigq (MIP) reformats performed. Neck MRA: Axial and sagittal TruFISP through the neck. Coronal dynamic MR angiogram during administration of contrast in the arterial and venous phases, with 3- dimenstional wczhxsi-dokerdmax-nygyenbybk (MIP) reformats constructed from subtraction images. COMPARISON: None. FINDINGS: Image quality: Excellent. BRAIN: CSF spaces: Ventricles are normal in size and shape. Basal cisterns are patent. No extra-axial fluid collections. Brain: No intracranial bleeds or mass effects. Gage-white matter interface is normal. Wedge-shaped restricted diffusion noted in the right inferior posterior cerebellum as well as punctate focus of restricted diffusion near the left facial colliculus in the pontine tegmentum, the level of the nucleus for the left 6th cranial nerve. Normal intravascular flow voids are present. No abnormal intracranial enhancement. Skull and face: Calvarial marrow signal is normal. Orbits appear normal. Bilateral intraocular lens replacements noted. Sinuses: Right maxillary sinus mucosal thickening and complete opacification. BRAIN MR ANGIOGRAM: Anterior circulation: Intracranial internal carotid arteries are normal in size and enhancement. The flow within the paired anterior cerebral arteries is normal and symmetric. The flow within the middle cerebral arteries is normal and symmetric. The anterior communicating artery is seen. No stenoses, occlusions, or aneurysms. Posterior circulation: The visualized portions of the vertebral arteries demonstrate normal caliber, and join to form a normal appearing basilar artery. The flow within the posterior cerebral arteries is normal and symmetric. No stenoses, occlusions, or aneurysms. NECK MR ANGIOGRAM: Carotids: Great vessels demonstrate a conventional anatomy as they arise from the aortic arch. The origins of the common carotid arteries appear patent. The calibers and courses of both common carotid arteries are normal. The bifurcation regions appear normal bilaterally. The internal carotid arteries demonstrate normal course and caliber. Posterior circulation: The origins of the vertebral arteries appear patent. More superior portions of both vertebral arteries demonstrate normal course and caliber, and join to form a normal appearing basilar artery. Miscellaneous: Subclavian arteries appear patent. Pre-contrast images through the neck show no soft tissue abnormalities. 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 Correlate for lateral gaze palsy. Unremarkable MR angiogram of the head and neck Right maxillary mucosal sinus disease Approved by: Dax Gross M.D. on 06/04/2024 at 11:48 ECG Data Attestation: I personally reviewed and interpreted this ECG as follows: Interpretation: Normal sinus rhythm rate of 69, no obvious ST segment elevation or depression changes. T-wave inversion lead 3 but upright in leads 2 and F contiguous inferior leads. AL 136, QRS 84, QTC 409. [facility] Narrative Medical decision making narrative: 74-year-old female with 2 days duration of diplopia after cardiac catheterization [facility], reportedly coronary vessels were clean, has persisting double vision since the procedure. She does not take any antiplatelet medication. No chronic blood thinner medications. Symptoms worse with right lateral gaze. On examination she seems to have dysconjugate gaze on right lateral gaze testing, with incomplete movement of her left eye toward the nose on right lateral gaze testing, but seemed conjugate and without diplopia symptoms looking straight ahead and to the left. History of prior hip surgery, chronic low back pain, has had MRI testing post hip surgery, no pacemaker, no infusion devices, no obvious contraindications to MRI imaging. MRI stroke protocol ordered. EKG shows an or sinus rhythm. History of claustrophobia, IV Ativan prior to MR imaging ordered (delays in obtaining report due to transmission problems, teleradiologist in [place] Dr Gross who was reading the reports was contacted by phone, then IT seemed to fix importing problems, faxed report was received). MR stroke protocol, brain MRI, MRA head and neck vessels. Impressions: ?Acute to subacute infarcts noted involving the right cerebellum but also within the desiree at the expected level of the 6th cranial nerve nucleus. Correlate for lateral gaze palsy. Unremarkable MR angiogram of the head and neck. Right maxillary mucosal sinus disease. ? see radiologist's report Copy of the report given to patient and , we will consult Neurology for further recommendations treatment and diagnostic 1430, case discussed with neuro [facility] Dr. Jones, classifies this as a minor stroke, patient not on any antiplatelet or anticoagulation therapy, would recommend dual antiplatelet therapy, she is 45kg weight, he would recommend Plavix 300 mg loading dose then 75 mg daily. Recommends aspirin 324 mg loading dose then 81 mg baby aspirin daily. He also recommends aggressive empiric high-dose statin, Lipitor 80 mg now, schedule fasting lipids to check LDL with goal less than 100. He recommends further diagnostic studies to include cardiac echo with bubble study. And 24 hours duration of telemetry monitoring, to see if patient goes in and out of atrial fibrillation. Above recommendations relayed to the patient, we will contact hospitalist [phone], case discussed with hospitalist Dr. Monahan, accepts patient for admission to telemetry/observation Critical Care Time Critical Care Time Total Critical Care Time: 45 Attestation: The high probability of a clinically significant, sudden or life threatening deterioration of the [cerebrovascular, cardiovascular, neurologic, ophthalmologic] system(s) required my full and direct attention, intervention and personal management. The aggregate critical care time was [45] minutes. This time is in addition to time spent performing reported procedures but includes the following: [x] Data Review and interpretation [x] Patient assessment and monitoring of vital signs [x] Documentation [x] Medication orders and management Discharge Plan Departure Patient Disposition: Admitted as Observation Clinical Impression: Diplopia, Cerebellar stroke, Internuclear ophthalmoplegia Admit Date/Time: 06/04/24 15:03 Admit Provider: Luis Toledo
[2024-06-04 07:58] LABS: Add Manual Diff / Slide Review NO; Basophils Absolute Auto 100 /uL (0-100); Eosinophils Absolute Auto 300 /uL (0-450); Eosinophils Percent Auto 3.9 % (2-4); Hematocrit 39.2 % (36-46); Hemoglobin 13.2 g/dL (12.0-16.0); Lymphocytes Absolute Auto 2100 /uL (1100-4500); Lymphocytes Percent Auto 28.6 % (25-40); Mean Corpuscular HGB Conc 33.6 % (30-36); Mean Corpuscular Hemoglobin 31.6 PG (26-34); Monocytes Absolute Auto 600 /uL (0-900); Monocytes Percent Auto 8.7 % (3-14); Neutrophils Absolute Auto 4100 /uL (1500-7000); Neutrophils Percent Auto 57.8 % (50-75); Platelet Count 318 X10^3/uL (150-400); Red Blood Cell Count 4.17 X10^6/uL (4.0-5.2); Red Cell Distribution Width 12.5 % (11.6-14.8); White Blood Cell Count 7.2 X10^3/uL (4.5-11.0)
[2024-06-04 08:07] LABS: Prothrombin Time 11.1 SECONDS (9.4-12.5)
[2024-06-04 08:09] LABS: PTT Partial Thromboplastin Tim 30 SECONDS (25.1-36.5)
[2024-06-04 08:12] LABS: Alanine Aminotransferase 26 IU/L (<35); Albumin 4.2 g/dL (3.5-5.0); Albumin Globulin Ratio 1.3 (1.0-2.8); Alkaline Phosphatase 69 U/L (38-126); Aspartate Aminotransferase 30 IU/L (14-36); BUN Creatinine Ratio 23.7 (6-22); Bilirubin Total 0.6 mg/dL (0.2-1.3); Blood Urea Nitrogen 14 mg/dL (7-17); Calcium 9.2 mg/dL (8.4-10.2); Carbon Dioxide 23 mmol/L (22-32); Chloride 102 mmol/L (98-107); Creatine Kinase 82 U/L (30-135); Estimated Glomerular Filt Rate > 60 mL/min (>60); Globulin 3.3 g/dL (1.7-4.1); Glucose 121 mg/dL (80-110); HEMOLYSIS < 15 (0-50); Potassium 3.7 mmol/L (3.4-5.1); Sodium 132 mmol/L (137-145); Total Protein 7.5 g/dL (6.3-8.2)
[2024-06-04 08:23] LABS: Troponin I 0.054 ng/mL (0.01-0.034)
[2024-06-04 09:14] LABS: Appearance Urine UA CLEAR; Bilirubin Urine UA NEGATIVE (NEGATIVE); Color Urine UA YELLOW; Glucose Urine UA NEGATIVE (Negative); Ketones Urine UA 1+ (NEGATIVE); Leukocyte Esterase Urine UA NEGATIVE (NEGATIVE); Nitrite Urine UA NEGATIVE (Negative); Occult Blood Urine UA NEGATIVE (Negative); Protein Urine UA NEGATIVE (Negative)
[2024-06-04 09:22] LABS: Urine Volume 10mL (spun)
[2024-06-04 09:24] LABS: Bacteria Urine None Seen; Culture Indicated Urine Cult Not Indicated; RBC Urine None Seen (0-5/HPF); Squamous Epithelial Cell Urine 0-1 /HPF (0-5/HPF); WBC Urine 0-1/HPF (0-5/HPF)
[2024-06-04] MEDS: LORazepam 2 MG/ML INJ IV (09:51)
--- NOTE | 2024-06-04 09:55 | PC.NURSE ---
Patient left department with auto technician.
[2024-06-04] MEDS: CLOPIDOGREL 75 MG TABLET 300 MG PO (14:54)
[2024-06-04] MEDS: ASPIRIN 81 MG CHEW TAB 324 MG PO (14:54)
[2024-06-04] MEDS: ATORVASTATIN 20 MG TABLET 80 MG PO ×2 (14:54→21:44)
--- NOTE | 2024-06-04 15:15 | P.HP_ITS ---
History of Present Illness History of Present Illness Date Patient Seen: 06/04/24 Time Patient Seen: 16:00 Chief complaint: sent from [facility]- double vision, dizzy Narrative: The patient was a 74-year-old female who has history of pulmonary sarcoid. She recently had a abnormal stress test to evaluate her dyspnea and then was sent to [facility] for a coronary catheterization. This happened on , June 02. Shortly after procedure she developed diplopia. She has had diplopia which has not really improved since that time. The diplopia is worse if she looks to her right. She denies headache. No numbness weakness of arms or legs. No difficulty walking. Her speech is also normal. Her vision he was normal, other than diplopia. She has no history of TIA, or stroke. No head trauma. In the ED MRI revealed brainstem and cerebellar infarcts. It was suspected that this may relate to cholesterol emboli from her catheterization procedure. She was discussed with Neurology at [facility], recommendations for loading of dual antiplatelet therapy and high dose statin. Recommendations also for 24 hours of telemetry to rule out arrhythmia as well as echo to rule out PFO. She denies feeling off otherwise recently. She was pulmonary sarcoid has had dyspnea on exertion which led to these additional tests. Her weight continues to be low and her BMI is 18. She was in [place], with her . [facility] Medical History Coronary artery disease Iliotibial band syndrome, left leg Rib pain on left side Left axis deviation POP (dyspnea on exertion) Somatic dysfunction of lower extremity Short leg syndrome, left, acquired Upper extremity somatic dysfunction Chronic bilateral thoracic back pain Chronic bilateral low back pain without sciatica Left hip pain Pain aggravated by anxiety Thoracic compression fracture Cranial somatic dysfunction Cervical somatic dysfunction Segmental and somatic dysfunction of abdomen and other regions Sacral region somatic dysfunction Pelvic somatic dysfunction Lumbar region somatic dysfunction Body posture problem Acute right-sided thoracic back pain Thoracic region somatic dysfunction Segmental and somatic dysfunction of rib cage Rib pain on right side Sarcoidosis of lung Borderline hypothyroidism Vision disorder Osteoarthritis of right hand (~2015) Pneumonia (~2011) Allergies Degeneration of spine Shoulder pain (~2018) Osteoporosis (~2000) Osteopenia (~1997) Hip fracture (~1998) Rubella (~1963) Mumps Measles (~1953) Oral herpes Chicken pox (~1958) Recurrent sinusitis Hearing loss Abnormal Pap smear of cervix Frequent UTI GERD (gastroesophageal reflux disease) Colon polyps (~2019) Precancerous skin lesion (~2018) Cataract fragments of both eyes following cataract surgery Surgical History Status post kyphoplasty Anesthesia History of cataract removal with insertion of prosthetic lens (~2015) Hx of total hip arthroplasty Family History Father Vascular disease Liver disease Mother Cancer Grandfather Cancer Diabetes mellitus Grandmother Congestive heart failure Grandfather History of heart disease Grandmother History of heart disease Family/Other Hypertension Social History household members: spouse Smoking Status: Never smoker second hand exposure: No alcohol intake: current substance use type: does not use Meds Home Medications and Allergies Allergies Allergy/AdvReac Type Severity Reaction Status Date / Time Sulfa (Sulfonamide Allergy Intermediate Hives Verified 06/04/24 07:42 Antibiotics) nitrofurantoin AdvReac Intermediate Fatigued Verified 06/04/24 10:14 Review of Systems Review of Systems Narrative: All else reviewed and otherwise unremarkable except as noted in the history and physical. Exam Vital Signs (past 8 hours): - 06/04/24 07:31 06/04/24 07:32 06/04/24 07:32 Temperature Pulse Rate 72 72 Respiratory Rate Blood Pressure 166/79 H Pulse Oximetry 99 99 Oxygen Delivery Method 06/04/24 07:38 06/04/24 08:00 06/04/24 08:00 Temperature 98.3 F Pulse Rate 72 67 Respiratory Rate 17 19 Blood Pressure 166/79 H 159/80 H Pulse Oximetry 99 99 Oxygen Delivery Method Room Air 06/04/24 08:30 06/04/24 08:30 06/04/24 09:37 Temperature Pulse Rate 70 68 Respiratory Rate 27 H Blood Pressure 155/75 H Pulse Oximetry 100 Oxygen Delivery Method 06/04/24 09:38 06/04/24 09:38 06/04/24 10:38 Temperature Pulse Rate 68 86 Respiratory Rate Blood Pressure 146/75 H Pulse Oximetry 99 97 Oxygen Delivery Method 06/04/24 11:00 06/04/24 11:00 06/04/24 11:01 Temperature Pulse Rate 76 Respiratory Rate 16 Blood Pressure 133/66 131/69 Pulse Oximetry 94 Oxygen Delivery Method 06/04/24 11:01 06/04/24 11:15 06/04/24 11:15 Temperature Pulse Rate 83 80 Respiratory Rate 27 H 17 Blood Pressure 120/69 Pulse Oximetry 96 94 Oxygen Delivery Method 06/04/24 11:30 06/04/24 11:30 06/04/24 11:45 Temperature Pulse Rate 77 69 Respiratory Rate 17 16 Blood Pressure 121/65 Pulse Oximetry 94 93 Oxygen Delivery Method 06/04/24 11:45 06/04/24 12:00 06/04/24 12:00 Temperature Pulse Rate 69 Respiratory Rate 15 Blood Pressure 105/63 103/61 Pulse Oximetry 93 Oxygen Delivery Method 06/04/24 12:15 06/04/24 12:15 06/04/24 12:30 Temperature Pulse Rate 70 69 Respiratory Rate 15 15 Blood Pressure 101/59 L Pulse Oximetry 93 93 Oxygen Delivery Method 06/04/24 12:30 06/04/24 12:45 06/04/24 12:45 Temperature Pulse Rate 71 Respiratory Rate 18 Blood Pressure 107/60 121/70 Pulse Oximetry 94 Oxygen Delivery Method 06/04/24 13:00 06/04/24 13:00 06/04/24 13:15 Temperature Pulse Rate 67 65 Respiratory Rate 13 15 Blood Pressure 122/66 Pulse Oximetry 96 94 Oxygen Delivery Method 06/04/24 13:15 06/04/24 13:30 06/04/24 13:30 Temperature Pulse Rate 92 H Respiratory Rate 15 Blood Pressure 116/61 118/67 Pulse Oximetry 96 Oxygen Delivery Method 06/04/24 13:45 06/04/24 13:45 06/04/24 14:00 Temperature Pulse Rate 80 78 Respiratory Rate 18 15 Blood Pressure 123/76 Pulse Oximetry 96 97 Oxygen Delivery Method 06/04/24 14:00 06/04/24 14:15 06/04/24 14:15 Temperature Pulse Rate 88 Respiratory Rate 17 Blood Pressure 137/78 128/65 Pulse Oximetry 96 Oxygen Delivery Method 06/04/24 14:30 06/04/24 14:30 06/04/24 14:45 Temperature Pulse Rate 83 81 Respiratory Rate 15 17 Blood Pressure 142/72 H Pulse Oximetry 97 97 Oxygen Delivery Method 06/04/24 14:45 06/04/24 15:00 06/04/24 15:04 Temperature Pulse Rate 82 79 Respiratory Rate 17 14 Blood Pressure 131/67 Pulse Oximetry 97 99 Oxygen Delivery Method 06/04/24 15:04 Temperature Pulse Rate Respiratory Rate Blood Pressure 171/77 H Pulse Oximetry Oxygen Delivery Method Oxygen Delivery Method Room Air Narrative Exam Narrative: NAD, alert and oriented, fluent speech, calm. Normocephalic skull, EOMI, anicteric sclera, symmetric pupils. Oropharynx unremarkable, no droop. Neck supple, midline trachea, no adenopathy. Lungs clear, normal rate and effort. Heart regular, no murmur gallop or rub. Abdomen is soft, non distended and non tender. Extremities are free of edema. Skin is free of rash or lesions. Joints are not swollen or deformed. Judgment appears to be normal. Neuro: She has dysconjugate gaze when looking to her right. Her left eye does not cross midline to the right. She also has dysconjugate and other areas consistent with internuclear ophthalmoplegia. She was no facial droop, speech is normal in casie of speech is normal. Motor strength is normal in arms and legs and her rapid alternating movements of her hands are slow but symmetric. Her [id number] is normal bilaterally. Objective ECG Impression: No acute cardiopulmonary abnormality is seen. Imaging MRI - head: Radiologist's impression: Acute to subacute infarcts noted involving the right cerebellum but also within the desiree at the expected level of the 6th cranial nerve nucleus. Correlate for lateral gaze palsy. Unremarkable MR angiogram of the head and neck Right maxillary mucosal sinus disease Labs 06/04/24 07:50 06/04/24 07:50 Labs: Laboratory Results - last 24 hr 06/04/24 06/04/24 07:50 09:00 WBC 7.2 RBC 4.17 Hgb 13.2 Hct 39.2 MCV 94.0 MCH 31.6 MCHC 33.6 RDW 12.5 Plt Count 318 Neut % (Auto) 57.8 Lymph % (Auto) 28.6 Conway % (Auto) 8.7 Eos % (Auto) 3.9 Baso % (Auto) 1.0 Neut # (Auto) 4100 Lymph # (Auto) 2100 Conway # (Auto) 600 Eos # (Auto) 300 Baso # (Auto) 100 PT 11.1 INR 1.0 APTT 30 Sodium 132 L Potassium 3.7 Chloride 102 Carbon Dioxide 23 BUN 14 Creatinine 0.59 Estimated GFR > 60 BUN/Creatinine Ratio 23.7 H Glucose 121 H Calcium 9.2 Total Bilirubin 0.6 AST 30 ALT 26 Alkaline Phosphatase 69 Total Creatine Kinase 82 Troponin I 0.054 H Total Protein 7.5 Albumin 4.2 Globulin 3.3 Albumin/Globulin Ratio 1.3 Urine Color Yellow Urine Appearance Clear Urine pH 6.0 Ur Specific L[place]y 1.020 Urine Protein Negative Urine Glucose (UA) Negative Urine Ketones 1+ H Urine Occult Blood Negative Urine Nitrate Negative Urine Bilirubin Negative Urine Urobilinogen 1.0 Ur Leukocyte Esterase Negative Urine RBC None seen Urine WBC 0-1/hpf Ur Squamous Epith Cells 0-1 /hpf Urine Bacteria None seen Ur Culture Indicated? Cult not indicated Vol Urine Centrifuged 10ml (spun) Assessment & Plan Assessment & Plan narrative: 1. 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 2. 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 3. Chronic pulmonary sarcoid, present on admission and stable. 4. Hypothyroidism, present on admission and stable. Plan: -loaded with dual antiplatelet therapy, start regular dual antiplatelet therapy on June 05. -high dose statin. -24 hours of telemetry, rule out arrhythmia. -resting lipid profile. Admitted to observation, anticipate a 1 midnight stay. Full resuscitation. Lives in [place] with . is proxy decision maker. Time-Based Coding :: 40 min spent with patient and on the chart (including review of chart, obtaining history, exam, reviewing outside data, placing orders, documenting exam and treatment plan, and counseling patient) on 06/04.
[2024-06-04] MEDS: HEPARIN 5,000 UNIT/ML VIAL 5000 UNIT SUBCUT (21:44)
[2024-06-04] MEDS: SODIUM CHLORIDE 0.9% FLUSH 10 ML IV (21:45)
[2024-06-05 04:00] VITALS: BP 126/80; PULSE 77; RESP 16; TEMP 36.2; O2SAT 98
[2024-06-05 05:02] LABS: Hemoglobin 12.5 g/dL (12.0-16.0); Mean Corpuscular HGB Conc 33.8 % (30-36); Mean Corpuscular Hemoglobin 31.7 PG (26-34); Mean Corpuscular Volume 93.6 fL (80-100); Platelet Count 282 X10^3/uL (150-400); Red Blood Cell Count 3.95 X10^6/uL (4.0-5.2); Red Cell Distribution Width 12.3 % (11.6-14.8); White Blood Cell Count 6.4 X10^3/uL (4.5-11.0)
[2024-06-05 05:16] LABS: Cholesterol 186 mg/dL (140-199); HDL Cholesterol 45 mg/dL (40-60); LDL Cholesterol Calculated 124 mg/dL (<100); Triglycerides 87 mg/dL (35-150)
[2024-06-05 05:17] LABS: BUN Creatinine Ratio 24.1 (6-22); Blood Urea Nitrogen 13 mg/dL (7-17); Calcium 8.6 mg/dL (8.4-10.2); Carbon Dioxide 23 mmol/L (22-32); Chloride 102 mmol/L (98-107); Estimated Glomerular Filt Rate > 60 mL/min (>60); Glucose 90 mg/dL (80-110); HEMOLYSIS < 15 (0-50); Potassium 4.1 mmol/L (3.4-5.1); Sodium 131 mmol/L (137-145)
[2024-06-05 05:28] LABS: Hemoglobin A1C% w Est Avg Glu 5.4 % (4.0-6.0)
[2024-06-05 08:00] VITALS: BP 144/84; PULSE 77; RESP 15; TEMP 36.3; O2SAT 100
[2024-06-05] MEDS: CLOPIDOGREL 75 MG TABLET PO (08:21)
[2024-06-05] MEDS: ASPIRIN EC 81 MG TABLET PO (08:21)
[2024-06-05] MEDS: HEPARIN 5,000 UNIT/ML VIAL 5000 UNIT SUBCUT ×2 (08:21→21:11)
[2024-06-05] MEDS: SODIUM CHLORIDE 0.9% FLUSH 10 ML IV ×2 (08:21→21:11)
--- NOTE | 2024-06-05 08:26 | PM.PN.1 ---
Subjective Subjective Interval history: S: she is improving. Some mouth weakness. Exam Vital Signs (past 8 hours): Oxygen Delivery Method Room Air Oxygen Flow Rate 0 Narrative Exam Narrative: NAD, alert and oriented. Fluent speech. Lungs are clear, normal rate and effort. Heart is regular, no murmur gallop or rub. Abdomen is soft, non distended. Extremities are free of edema. Objective Labs 06/06/24 04:50 06/06/24 04:50 [facility] Medical History Coronary artery disease Iliotibial band syndrome, left leg Rib pain on left side Left axis deviation POP (dyspnea on exertion) Somatic dysfunction of lower extremity Short leg syndrome, left, acquired Upper extremity somatic dysfunction Chronic bilateral thoracic back pain Chronic bilateral low back pain without sciatica Left hip pain Pain aggravated by anxiety Thoracic compression fracture Cranial somatic dysfunction Cervical somatic dysfunction Segmental and somatic dysfunction of abdomen and other regions Sacral region somatic dysfunction Pelvic somatic dysfunction Lumbar region somatic dysfunction Body posture problem Acute right-sided thoracic back pain Thoracic region somatic dysfunction Segmental and somatic dysfunction of rib cage Rib pain on right side Sarcoidosis of lung Borderline hypothyroidism Vision disorder Osteoarthritis of right hand (~2015) Pneumonia (~2011) Allergies Degeneration of spine Shoulder pain (~2018) Osteoporosis (~2000) Osteopenia (~1997) Hip fracture (~1998) Rubella (~1963) Mumps Measles (~1953) Oral herpes Chicken pox (~1957) Recurrent sinusitis Hearing loss Abnormal Pap smear of cervix Frequent UTI GERD (gastroesophageal reflux disease) Colon polyps (~2019) Precancerous skin lesion (~2018) Cataract fragments of both eyes following cataract surgery Surgical History Status post kyphoplasty Anesthesia History of cataract removal with insertion of prosthetic lens (~2015) Hx of total hip arthroplasty Family History Father Vascular disease Liver disease Mother Cancer Grandfather Cancer Diabetes mellitus Grandmother Congestive heart failure Grandfather History of heart disease Grandmother History of heart disease Family/Other Hypertension Social History household members: spouse Smoking Status: Never smoker second hand exposure: No alcohol intake: current substance use type: does not use Assessment & Plan Assessment & Plan narrative: 1. 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 2. 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 3. Chronic pulmonary sarcoid, present on admission and stable. 4. Hypothyroidism, present on admission and stable. Plan: -continue with dual antiplatelet therapy, started regular dual antiplatelet therapy on June 05. -high dose statin, continue. -continue telemetry. -resting lipid profile. LDL high. Time-Based Coding :: [TOTAL MINUTES] spent with patient and on the chart (including review of chart, obtaining history, exam, reviewing outside data, placing orders, documenting exam and treatment plan, and counseling patient) on [DATE]. Quality VTE Deep Vein Thrombosis/Pulmonary Embolism Present on Admission: No
--- NOTE | 2024-06-05 10:00 | DI.ECHO.S_ITS ---
[facility] : : [id number] : [place] : : [id number] : : Phone: [phone] Echocardiogram Report + + :Name: EDDIE TREJO Study Date: 06/05/2024 Height: 59 in : :[facility] ReadingLocation: Weight: 98 lb : : Gender: Female BSA: 1.4 m2 : :: 1950 Age: 74 yrs BP: 179/89 mmHg: :Reason For Study: CVA : :Ordering Physician: RAYO, : :SARAH Cruz Performed By: Susan Coleman : :Referring: SARAH CADE : + + Interpretation Summary Normal sinus rhythm. Normal LV size, wall thickness, wall motion and LV systolic function. EF is 55-60%. Normal chamber sizes. No valve abnormalities. No source of embolism found. No PFO based on bubbe study. Procedure: A two-dimensional transthoracic echocardiogram with color flow and Doppler was performed. The study quality was technically adequate. Comparison is made with the echocardiogram of 04-06-23. The heart rate ranged between 76-78 bpm during the study. Left Ventricle: The left ventricle is normal in size and wall thickness. The ejection fraction is estimated to be 55-60%. Diastolic parameters suggest probable normal left ventricular diastolic function and normal filling pressures. Right Ventricle: The right ventricle grossly appears normal in size with probable normal systolic function. Atria: The left atrial size is normal. Right atrial size is normal. Injection of contrast documented no interatrial shunt. Bubble study was captured on image frame(s) # 90. Mitral Valve: The mitral valve is normal in structure and function. There is no mitral regurgitation noted. Aortic Valve: The aortic valve is trileaflet. The aortic valve opens well. There is trace aortic regurgitation. Tricuspid Valve: The tricuspid valve leaflets are thin and pliable. There is a trace or physiologic amount of tricuspid regurgitation. The right ventricular systolic pressure is estimated to be at least 21 mmHg based on an estimated right atrial pressure of 3 mm Hg. Pulmonic Valve: The pulmonic valve is not well seen, but is grossly normal. There is a trace or physiologic amount of pulmonic regurgitation. Great Vessels: The aortic root is normal size. The ascending aorta is normal in size. The aortic arch is normal in size. The IVC is of normal diameter and collapses greater than 50% with a sniff. This suggests a low right atrial pressure of 3 mm Hg. Pericardium/ Pleura There is no pericardial effusion. There is no pleural effusion. MMode/2D Measurements & Calculations LVIDd: 3.9 cm LVOT diam: 1.7 cm LVIDs: 2.4 cm Ao root diam: 2.8 cm FS: 37.4 % asc Aorta Diam: 3.3 cm EPSS: 0.54 cm Ao Arch Diam (Prox Trans): 2.7 cm IVSd: 0.64 cm LVPWd: 0.73 cm LV kidd. diameter/BSA (cm/m^2): 2.9 LV sys. diameter/BSA (cm/m^2): 1.8 LA A2 area: 12.5 cm2 RA long axis: 4.6 cm LA A4 area: 12.6 cm2 RA area: 10.0 cm2 LA length (vol): 4.2 cm RA vol: 18.5 ml LA vol: 32.0 ml RA : 13.6 ml/m2 LA vol index: 23.5 ml/m2 RVD1 (basal): 2.0 cm TAPSE: 1.5 cm Doppler Measurements & Calculations Ao V2 max: 140.2 cm/sec LVOT Max Elgin: 91.5 cm/sec Ao V2 mean: 93.5 cm/sec LV V1 max P.3 mmHg Ao max P.9 mmHg LV V1 VTI: 18.0 cm Ao mean P.1 mmHg KYLIE(I,D): 1.5 cm2 Ao V2 VTI: 26.7 cm KYLIE(V,D): 1.5 cm2 sev ratio: 0.68 KYLIE indexed to BSA (cm^2/m^2): 1.1 MV E max elgin: 52.7 cm/sec TR max elgin: 211.8 cm/sec MV A max elgin: 111.3 cm/sec TR max P.9 mmHg MV E/A: 0.47 PA V2 max: 70.3 cm/sec Med Peak E' Elgin: 4.7 cm/sec PA V2 mean: 50.4 cm/sec E/E' med: 11.2 PA mean P.2 mmHg Lat Peak E' Elgin: 5.4 cm/sec PA pr(Accel): 19.1 mmHg E/E' lat: 9.7 E/e' average: 10.5 MV dec time: 0.26 sec SV(LVOT): 41.3 ml Electronically signed by: Rosa Bolaños M.D. on Reading Physician:06/05/2024 03:07 PM
--- NOTE | 2024-06-05 11:20 | PT.IIE ---
Surgical History (Last Reviewed 06/04/24 @ 16:55 by Luis Toledo MD) Anesthesia History of cataract removal with insertion of prosthetic lens (~2015) Hx of total hip arthroplasty Status post kyphoplasty Medical History (Last Reviewed 06/04/24 @ 16:55 by Luis Toledo MD) Abnormal Pap smear of cervix Acute right-sided thoracic back pain Allergies Body posture problem Borderline hypothyroidism Cataract fragments of both eyes following cataract surgery Cervical somatic dysfunction Chicken pox (~1957) Chronic bilateral low back pain without sciatica Chronic bilateral thoracic back pain Colon polyps (~2018) Coronary artery disease Cranial somatic dysfunction Degeneration of spine POP (dyspnea on exertion) Frequent UTI GERD (gastroesophageal reflux disease) Hearing loss Hip fracture (~1998) Iliotibial band syndrome, left leg Left axis deviation Left hip pain Lumbar region somatic dysfunction Measles (~1953) Mumps Oral herpes Osteoarthritis of right hand (~2015) Osteopenia (~1997) Osteoporosis (~2000) Pain aggravated by anxiety Pelvic somatic dysfunction Pneumonia (~2011) Precancerous skin lesion (~2017) Recurrent sinusitis Rib pain on left side Rib pain on right side Rubella (~1963) Sacral region somatic dysfunction Sarcoidosis of lung Segmental and somatic dysfunction of abdomen and other regions Segmental and somatic dysfunction of rib cage Short leg syndrome, left, acquired Shoulder pain (~2017) Somatic dysfunction of lower extremity Thoracic compression fracture Thoracic region somatic dysfunction Upper extremity somatic dysfunction Vision disorder Physical Therapy Inpatient Evaluation/Re-Eval M1 PT/OT-IP Prior Functional Status Start: 06/05/24 10:22 Freq: NEEDED Status: Active Protocol: Document 06/05/24 10:58 MB (Rec: 06/05/24 11:20 MB [id number]) Medical Review Prior Functional Status Medical History Reviewed Yes Diet/Fluid Consistency Regular Communication WNLs Mobility and Gait I, drove Activities of Daily Living and IADL's I Social History Household Members spouse Living Arrangements House Number of Floors (Floors) One Floor Number of Stairs To Enter/Railing? 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 Therapy Pain Assessment Pain When Pain Assessed At Rest Pain Present Pain Present Denied Pain M4 PT-IP Mobility and Gait Start: 06/05/24 10:22 Freq: NEEDED Status: Active Protocol: Document 06/05/24 10:58 MB (Rec: 06/05/24 11:20 MB [id number]) PT-Bed Mobility Assessment Rolling Type of Rolling Roll to Right Level of Assist Standby Assistance,1 Person Assistance Supine to Sit Supine to Sit Standby Assistance,1 Person Assistance,Head of Bed Elevated,Bedrails Scooting Scooting to Edge of Bed Standby Assistance Scooting Up and Down in Bed Standby Assistance PT-Transfer Assessment Sit to and From Stand Sit to and from Stand Contact Guard Assistance,1 Person Assistance,Use of Upper Extremities Equipment Transfer Assistive Device Gait Belt Orthotic/Prosthetic Devices or Brace: No Transfers Transfer Destination Chair Transfer Technique Ambulation Transfer Ability Level of Assist Contact Guard Assistance,1 Person Assistance Comments Mobility Comments Pt reports dizziness with getting up to EOB. Oculomotor exam reveals mild spontaneous nystagmus that changes direction with different gaze looking (nystagmus directions towards the direction looking) , indicative of central nystagmus and consistent with diagnosis. Pt tends to keep head turned to the right and states this helps with her double vision. 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 Peripheral vision scanning appears normal. If pt closes her right eye, vision seems better and if she closes her left eye, she squints and reports vision is worse. Gait Assessment Gait Gait Assistance Required: Minimum Assistance Distance (Feet) 35 Able to Maintain Weight Bearing Status Yes During Gait Assistive Devices Assistive Device Gait Belt Orthotic/Prosthetic Devices or Brace: No Gait Deviations General Gait Pattern Ataxic,Decreased Stride Length ,Decreased Feet Clearance,Step -to Gait Factors Limiting Gait Function Factors Limiting Gait Function Decreased Activity Tolerance, Incoordination,Poor Balance, Poor Safety Awareness Comments Gait Comments Pt with mild LOB to the left with gait and gait is mildly ataxic PT-Balance Assessment Sitting Balance and Reactions Static Sitting Balance Ability Good Dynamic Sitting Balance Ability Good Standing Balance and Reactions Static Standing Balance Ability Good Dynamic Standing Balance Ability Fair Device Used Gait belt Balance Tests Romberg 30 sec Comments Other Balance Tests/Deviations/Treatment No LOB with Romberg with EC, : pt cannot perform SLS either leg without LOB M5 PT-IP Objective Assessments Start: 06/05/24 10:22 Freq: NEEDED Status: Active Protocol: Document 06/05/24 10:58 MB (Rec: 06/05/24 11:20 MB [id number]) Orientation Orientation/Cognition Level of Alertness Alert Orientation Name,Age,Birthday,Month,Date, Year,Day of Week,Place, Situation Language Function Ability No Deficits Noted Safety Awareness Decreased Safety Awareness Memory Description No Deficits Noted Gross Range of Motion Upper Extremity ROM Impairments Defer to OT and does look normal on PT assessment date Lower Extremity ROM Assessment Within Functional Limits Strength Lower Extremity Strength Assessment Within Functional Limits Coordination Assessment Gross Coordination Gross Coordination Impaired Assessment Finger to Nose Test Minimal Impairment Pronation/Supination Test Normal Performance Foot Tapping Test Minimal Impairment Heel on Mayes Test Normal Performance Coordination Comments Mild impairment toe tapping tests with left foot Sensation Assessment Sensation Gross Sensation WNL Muscle Tone Muscle Tone WNL Yes M6 PT-IP Treatment Start: 06/05/24 10:22 Freq: NEEDED Status: Active Protocol: Document 06/05/24 10:58 MB (Rec: 06/05/24 11:20 MB [id number]) Physical Therapy Treatment Education Education Provided Safety M7 PT-IP Assessment and Plan Start: 06/05/24 10:22 Freq: NEEDED Status: Active Protocol: Document 06/05/24 10:58 MB (Rec: 06/05/24 11:20 MB [id number]) PT Summary Assessment and Plan Potential Rehabilitation Potential Excellent Status of Condition at Evaluation Evolving Summary Impairments Balance,Coordination,Bed Mobility,Transfers,Gait, Activity Tolerance Progress Towards Goals Progressing Toward Goals Assessment Summary Pt is a pleasant 74 y/o female who presents A&O and with central findings with oculomotor exam: mild spontaneous nystagmus following central pattern, diplopia, tending to keep head turned to the right and more vision challenges with right eye. Pt reports more trouble drinking with straw and cannot drink from plastic cup and straw with PT this a.m. Left mouth droop. Her strength and sensation are good and she has some coordination challenges and LOB. Pt will benefit from OT and BAR WAITER/WAITRESS consults before determining disposition status . Pt states that the trouble drinking out of straw (pursing lips and sucking) are more noticeable today. Pt may benefit from acute rehab at d/ c. Goals Bed Mobility Goal Independent Transfer Goal Independent Gait Goal Independent Gait Distance 100 Other Goals Pt will ascend and descend 2 steps with LRAD and no more than superv assistance to allow safe home entrance. Pt will perform WNLs on standardized balance test to decrease fall risk. For goals, use LRAD and progress to no AD if appropriate. Days to Meet Goals 5 Frequency of Treatment Frequency Of Treatment Once a Day Treatment Plan Physical Therapy Treatment Plan Bed Mobility Training,Transfer Training,Gait Training, Therapeutic Exercise,Balance Retraining,Discharge Planning, Neuromuscular Re-ed, Coordination Retraining,Manual Therapy Weight Bearing Status Weight Bearing Status Weight Bear as Tolerated Recommendations To Nursing Amount of Assist Needed 1 Person Assist Discharge Recommendations Other Discharge Recommendations Currently, acute rehab at d/c and need to await OT and BAR WAITER/WAITRESS consults. Transportation Needs at Discharge Private Vehicle
[2024-06-05 12:00] VITALS: BP 138/74; PULSE 79; RESP 15; TEMP 36.3; O2SAT 99
--- NOTE | 2024-06-05 15:10 | CM.DANOTE ---
Patient is a 74 yo female who was admitted INPT Status on 06/04/24 for Diplopia/Infarct. Pt has MCR and PRE PREFERRED for insurance and her PCP is Dr. Ernie Parsons. EMR was reviewed. Per MD, pt recently had abnormal stress test and then heart cath at [facility] 06/02 and then developed Diplopia. [facility] and imaging showed Infarct. Per PT, pt able to ambulate well but her vision issues are making balance and movement more challenging. Potentially pt could benefit from Acute Rehab pending ST/OT. ST/OT to eval pt tomorrow Thursday as no ST/OT today Thursday. SW met bedside with pt and spouse and explained role and they confirm that they live in [place] at home and both are very active and independent at baseline. Pt does not use DME for ambulation and still drives and denies any hx of HH or SNF. They currently have Dtr and her family up visiting from [facility] just for another 3 days. Pt's DPOA is her spouse Oscar. SW discussed and provided the Acute Rehab brochure from [facility] and discussed the services and length of stay and also discussed outpt vs HH OT/ST as pt and spouse feel pt's mobility is baseline but continues to have some deficits with drinking/swallow and fine motor. Pt hopeful for d/c to home and wanting to wait until OT/ST tomorrow to determine discharge planning needs. Spouse very attentive and capable of providing assist as needed. Plan: SW to follow closely for ST/OT eval tomorrow Thursday to determine discharge planning needs of Acute vs HH vs outpt. BRIGITTE Arriaga Discharge Planning/Care Management CM Discharge Assessment Start: 06/05/24 15:01 Freq: Status: Active Protocol: Document 06/05/24 15:01 (Rec: 06/05/24 15:09 [id number]) Discharge Planning Assessment Assigned Fireworks Inspector BRIGITTE Truong DPOA/Assigned Designee Name spouse Oscar Contact Information [phone] Advance Directives? Yes Advance Directives on File No History Provided By Patient,Significant Other, Medical Record Has Patient been admitted in last 30 No days? Prior Living Arrangements House Household Members spouse Type of transporation used prior to Drives own vehicle admit Independent with ADL's Yes Is patient alert and oriented? Yes Caregiver for Another No Comment Acute vs HH vs outpt pending ST/OT eval Mon and recommendations Barriers to Discharge No Discharge Plan Home Community Services Occupational Therapy,Speech Language Pathology Transportation Arrangement spouse bedside and can transport at d/c Additional Comment Pending OT/ST eval and recommendations to determine Acute vs HH vs outpt Whiteboard Updated in Patient Room with Yes name and ext. # of Fireworks Inspector Review Status In Process Please Provide Date Initial DC 06/05/24 Assessment Was Performed Next Review Type Continued Stay Review
[2024-06-05 16:00] VITALS: BP 135/71; PULSE 74; RESP 16; TEMP 36.3; O2SAT 98
[2024-06-05 20:00] VITALS: BP 145/88; PULSE 81; RESP 18; TEMP 36.6; O2SAT 97
[2024-06-05] MEDS: ATORVASTATIN 20 MG TABLET 80 MG PO (21:11)
[2024-06-05 23:00] VITALS: BP 122/64; PULSE 65; RESP 18; TEMP 36.1; O2SAT 98
[2024-06-06 03:00] VITALS: BP 112/67; PULSE 61; RESP 18; TEMP 36.1; O2SAT 97
[2024-06-06 05:49] LABS: BUN Creatinine Ratio 21.4 (6-22); Blood Urea Nitrogen 12 mg/dL (7-17); Calcium 8.9 mg/dL (8.4-10.2); Carbon Dioxide 23 mmol/L (22-32); Chloride 102 mmol/L (98-107); Estimated Glomerular Filt Rate > 60 mL/min (>60); Glucose 97 mg/dL (80-110); HEMOLYSIS < 15 (0-50); Sodium 132 mmol/L (137-145)
[2024-06-06 05:51] LABS: Hematocrit 37.6 % (36-46); Hemoglobin 12.6 g/dL (12.0-16.0); Mean Corpuscular HGB Conc 33.6 % (30-36); Mean Corpuscular Hemoglobin 31.5 PG (26-34); Mean Corpuscular Volume 93.7 fL (80-100); Platelet Count 311 X10^3/uL (150-400); Red Blood Cell Count 4.01 X10^6/uL (4.0-5.2); Red Cell Distribution Width 12.2 % (11.6-14.8); White Blood Cell Count 6.6 X10^3/uL (4.5-11.0)
[2024-06-06 08:00] VITALS: BP 142/77; PULSE 75; RESP 17; TEMP 36.2; O2SAT 99
[2024-06-06] MEDS: ASPIRIN EC 81 MG TABLET PO (08:18)
[2024-06-06] MEDS: SODIUM CHLORIDE 0.9% FLUSH 10 ML IV ×2 (08:18→20:45)
[2024-06-06] MEDS: ONDANSETRON 4 MG ODT PO (08:18)
[2024-06-06] MEDS: HEPARIN 5,000 UNIT/ML VIAL 5000 UNIT SUBCUT ×2 (08:18→20:41)
[2024-06-06] MEDS: CLOPIDOGREL 75 MG TABLET PO (08:18)
[2024-06-06] MEDS: LORazepam 2 MG/ML INJ 0.5 MG IV (09:30)
--- NOTE | 2024-06-06 09:54 | DI.MRI.S_ITS ---
PROCEDURE: MR HEAD/BRAIN WO CON INDICATIONS: new neuro symptoms. TECHNIQUE: Non-contrast axial T1 spin echo, axial T2 fast spin echo, sagittal and axial FLAIR, coronal T2 fast spin echo, axial gradient echo, axial diffusion and ADC through the brain. COMPARISON: [facility], MR, MR STROKE, 06/04/2024, 9:48. FINDINGS: Image quality: Excellent. CSF spaces: Ventricles appear symmetric in size and shape. Basal cisterns are patent. No extra-axial fluid collections. Brain: No intracranial bleeds or mass effects. There is cerebral volume loss for age. There are very minimal, age-appropriate periventricular and deep white matter chronic small vessel ischemic changes. Brainstem appears normal. Restricted diffusion is again noted in a wedge-shaped distribution of the right cerebellar hemisphere, a relatively small infarct, as well as in the midline posterior desiree. Also present is a very punctate area of restricted diffusion in the high posterior left parietal cortex close to midline which was present on the previous study as well, but was significantly less conspicuous. All of these infarcts are consistent with posterior distribution embolic phenomena. Subtle cytotoxic edema is noted related to each of these small areas acute infarct. No chronic ischemic insults. Normal intravascular flow voids are present. Skull and face: Calvarial bone marrow is normal in signal. Orbits are normal. Sinuses: Sinuses and mastoids are clear. IMPRESSION: 1. 3 separate areas of infarct are present, unchanged in size and number from the previous study. Findings include a small wedge-shaped subacute right cerebellar hemisphere infarct, a punctate midline posterior desiree infarct, and a punctate high left parietal cortical infarct. Associated cytotoxic edema. 2. No new or increasing infarcts. 3. Very mild , age-appropriate small-vessel ischemic change. Comment: Consider cardiac or posterior circulation embolic source. Dictated by: Juwan Zavala M.D. on 06/06/2024 at 11:01 Approved by: Juwan Zavala M.D. on 06/06/2024 at 11:09
--- NOTE | 2024-06-06 10:29 | OT.IP.EVAL ---
Past Medical History (Last Reviewed 06/04/24 @ 16:55 by Luis Toledo MD) Abnormal Pap smear of cervix Acute right-sided thoracic back pain Allergies Body posture problem Borderline hypothyroidism Cataract fragments of both eyes following cataract surgery Cervical somatic dysfunction Chicken pox (~1957) Chronic bilateral low back pain without sciatica Chronic bilateral thoracic back pain Colon polyps (~2018) Coronary artery disease Cranial somatic dysfunction Degeneration of spine POP (dyspnea on exertion) Frequent UTI GERD (gastroesophageal reflux disease) Hearing loss Hip fracture (~1998) Iliotibial band syndrome, left leg Left axis deviation Left hip pain Lumbar region somatic dysfunction Measles (~1953) Mumps Oral herpes Osteoarthritis of right hand (~2015) Osteopenia (~1997) Osteoporosis (~2000) Pain aggravated by anxiety Pelvic somatic dysfunction Pneumonia (~2011) Precancerous skin lesion (~2017) Recurrent sinusitis Rib pain on left side Rib pain on right side Rubella (~1963) Sacral region somatic dysfunction Sarcoidosis of lung Segmental and somatic dysfunction of abdomen and other regions Segmental and somatic dysfunction of rib cage Short leg syndrome, left, acquired Shoulder pain (~2017) Somatic dysfunction of lower extremity Thoracic compression fracture Thoracic region somatic dysfunction Upper extremity somatic dysfunction Vision disorder Surgical History (Last Reviewed 06/04/24 @ 16:55 by Luis Toledo MD) Anesthesia History of cataract removal with insertion of prosthetic lens (~2015) Hx of total hip arthroplasty Status post kyphoplasty Occupational Therapy Inpatient Evaluation/Re-Eval M1 PT/OT-IP Prior Functional Status Start: 06/05/24 10:22 Freq: NEEDED Status: Active Protocol: Document 06/06/24 10:37 CGR (Rec: 06/06/24 11:32 CGR [id number]) Medical Review Prior Functional Status Medical History Reviewed Yes Diet/Fluid Consistency Regular Communication WNLs Mobility and Gait I, drove Activities of Daily Living and IADL's Ind with all ADLs and IADLs Social History Household Members spouse Living Arrangements House Number of Floors (Floors) One Floor Number of Stairs To Enter/Railing? 2 steps without rail Home Environment High Toilet,Walk in Shower Home Equipment Front Wheel Walker,Straight Cane,Crutches Employment Status Retired Additional Social History Comment Pt lives with her and is very active at her baseline . M2 OT-IP Current Condition Start: 06/06/24 10:37 Freq: Status: Active Protocol: Document 06/06/24 10:37 CGR (Rec: 06/06/24 11:32 CGR [id number]) Occupational Therapy Current Condition Current Condition Evaluation Date 06/06/24 Treatment Diagnosis R cerebellum, desiree, 6th cranial nerve nucleus infart, diplopia Diagnosis Onset Date 06/04/24 M3 OT- IP Subjective and Pain Start: 06/06/24 10:37 Freq: Status: Active Protocol: Document 06/06/24 10:37 CGR (Rec: 06/06/24 11:32 CGR [id number]) OT- Subjective Occupational Therapy Visit Type Type Initial Evaluation Visit Start Time 09:17 Visit Stop Time 09:34 Notes Then returned [id number]. Total of 38 minutes. OT Pain Assessment Pain When Pain Assessed At Rest Pain Present Pain Present Pain Reported Location Right Eye Intensity 2 Scale Used Numeric (0 - 10) Management Techniques Distraction,Modification of Treatment,Re-positioning M4 OT- IP ADL's Start: 06/06/24 10:37 Freq: Status: Active Protocol: Document 06/06/24 10:37 CGR (Rec: 06/06/24 11:32 CGR [id number]) OT [id number] Comments OT Self-Feeding Comments not meal time OT ADL-Grooming Comments OT Grooming Comments not performed OT ADL-Oral Care Comments Oral Care Comments not performed OT ADL-Dressing General Eval Lower Body Dressing Ability Independent Areas Needing Assistance Socks OT ADL-Toileting General Evaluation Toileting Ability Standby Assistance Comments OT Toileting Comments simulated seated on toilet. OT ADL-Bathing Comments OT Bathing Comments not performed M5 OT- IP IADL's Start: 06/06/24 10:37 Freq: Status: Active Protocol: Document 06/06/24 10:37 CGR (Rec: 06/06/24 11:32 CGR [id number]) OT-Instrumental Activities of Daily Living Deficits IADL Deficits Identified No Deficits Home Safety Awareness Awareness of Need for Assistance at Home Good Awareness Ability to Problem Solve Emergency Able to Problem Solve Situations Medication Management Medication Management No Deficits Identified Money Management Money Management No Deficits Identified Meal Preparation Meal Preparation No Deficits Identified Steno Typist Steno Typist No Deficits Identified Driving Driving Comments 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 M6 OT- IP Functional Cognition Start: 06/06/24 10:37 Freq: Status: Active Protocol: Document 06/06/24 10:37 CGR (Rec: 06/06/24 11:32 R [id number]) Cognitive Factors Limiting Selfcare Function Cognitive Ability Level of Alertness Alert Patient Orientation Name,Age,Birthday,Month,Date, Year,Day of Week,Place, Situation Attention Span Ability Capable of Focused Attention, Capable of Sustained Attention Ability to Follow Commands Able to Follow One Step Commands with Increased Time, Able to Follow One Step Commands with Repetition Memory Description No Deficits Noted Safety Awareness No Deficits Noted OT- Vision and Hearing OT- Hearing Assessment OT- Hearing Assessment Hearing Impaired,Use of Hearing Aids OT- Vision Assessment Visual Acuity Glasses For Reading Visual Attentiveness WFL Occular Pursuits WFL Visual Convergence WFL Diplopia Present Vision Assessment Comments Pt with nastagmus beating in the direction of the eye movement. Pt is able to move eyes through full range of normal occular limits without difficulty and without slowing down at midline. Pt states she is experiencing diplopia and noted slight alignment deficits between the two eyes. Pt states she is having some pressure/pain below the right eye that she feels might be from eye strain. M7 OT- IP Mobility and Balance Start: 06/06/24 10:37 Freq: Status: Active Protocol: Document 06/06/24 10:37 CGR (Rec: 06/06/24 11:32 R [id number]) OT- Bed Mobility Assessment Supine to Sit Supine to Sit Assist Independent Sit to Supine Sit to Supine Assist Independent Scooting Scooting to Edge of Bed Independent OT-Transfer Assessment Sit to and From Stand Sit to and from Stand Standby Assistance Transfers Transfer Ability Standby Assistance,Contact Guard Assistance Technique Transfer Destination Bed,Chair,Toilet Transfer Technique Stand Step Pivot Devices Transfer Assistive Devices Gait Belt Comments Mobility Comments Pt moves around the room without DME but with SBA to CGA d/t visual deficits. OT- Balance Assessment Sitting Balance and Reactions Static Sitting Balance Ability Good Dynamic Sitting Balance Ability Good M8 OT- IP Objective Assessments Start: 06/06/24 10:37 Freq: Status: Active Protocol: Document 06/06/24 10:37 CGR (Rec: 06/06/24 11:32 R [id number]) OT Gross Range of Motion Upper Extremity Range of Motion Assessment Within Functional Limits OT Strength Upper Extremity Strength Assessment Right Impaired Shoulder R 4/5, L 4+/5 Elbow R 4/5, L 4+/5 Hand 4+/5 Hand Customs Compliance Director Strength Hand Dominance Right Comments Strength Comments concerns for R sided weakness which is not consistent with her MRI findings and also L facial weakness. Pt is R handed. OT- Coordination Assessment Upper Extremity Finger to Nose Test Within Functional Limits Finger Tapping Test Within Functional Limits Comments Coordination Comments coordination is intact without noted weaknesses seen with MMT. OT-Muscle Tone Assessment Muscle Tone WNL Yes OT Sensation Assessment Edema Edema Absent M9 OT- IP Assessment and Plan Start: 06/06/24 10:37 Freq: Status: Active Protocol: Document 06/06/24 10:37 CGR (Rec: 06/06/24 11:32 CGR [id number]) OT Summary Assessment and Plan Potential Rehabilitation Potential Excellent Analytic Complexity at Evaluation Moderate Summary OT Impairments Strength,Balance,Functional Mobility,Bathing Progress Towards Goals Progressing Toward Goals Assessment Summary Pt presents as a moderate complexity evaluation s/p admit for diplopia. Pt found to have R cerebellum, desiree and 6th cranial nerve nucleus infarct. Pt is doing well but presents with significant deficits to her vision which is impacting her ability to mobilize safely. Pt will benefit from Acute Rehab as she needs extensive visual rehab, has a supportive and safe discharge plan, and is highly motivated to work with therapy. Goals Shower Transfer Goal Independent,Walk-in Shower, Grab Bars OT-Other Goals pt will participate in visual scanning tasks. Days to Meet Goals 10 Frequency of Treatment Frequency Of Treatment Once a Day Treatment Plan OT Treatment Plan ADL Training,Functional Mobility,Vision Retraining, Patient/Family Education, Discharge Planning Other Treatment Recommendations and Next visual scanning tasks. Treatment Focus Discharge Recommendations OT Discharge Recommendations Acute Rehab Transportation Needs at Discharge Private Vehicle
--- NOTE | 2024-06-06 10:35 | CM.DPC ---
DCP Acute Rehab: Per MD, pt to work with OT and ST today to determine Acute rehab vs home today. Per OT, recommending Acute and pt and spouse currently agreeable and preference is [facility] Acute Rehab due to location. SW called [facility] Acute admissions [place] and confirmed they have multiple beds available for new admits and willing to review. SW updated her that pt has very supportive and capable spouse and supportive friends and family for good discharge plan. FROILAN Bolivar kindly will fax new referral once OT/PT eval notes in EMR and will send ST eval once available to fax. Plan: SW to check in with pt and spouse regarding discharge plan and review from [facility] Acute to confirm they can accept. BRIGITTE Arriaga
[2024-06-06 12:00] VITALS: BP 116/72; PULSE 77; RESP 16; TEMP 36.1; O2SAT 100
--- NOTE | 2024-06-06 13:29 | PM.PN.1 ---
Subjective Subjective Interval history: Summary: The patient was a 74-year-old female who has history of pulmonary sarcoid. She recently had a abnormal stress test to evaluate her dyspnea and then was sent to [facility] for a coronary catheterization. This happened on June 02. Shortly after procedure she developed diplopia. She has had diplopia which has not really improved since that time. The diplopia is worse if she looks to her right. She denies headache. No numbness weakness of arms or legs. No difficulty walking. Her speech is also normal. Her vision he was normal, other than diplopia. She has no history of TIA, or stroke. No head trauma. In the ED MRI revealed brainstem and cerebellar infarcts. It was suspected that this may relate to cholesterol emboli from her catheterization procedure. She was discussed with Neurology at [facility], recommendations for loading of dual antiplatelet therapy and high dose statin. Recommendations also for 24 hours of telemetry to rule out arrhythmia as well as echo to rule out PFO. S: About the same today. Still left mouth weakness. Eyes are still disconjugate. -PT and OT both recommended inpatient rehab, she is considering this. Referral has been made aware waiting. Exam Vital Signs (past 8 hours): - 06/06/24 08:00 06/06/24 12:00 Temperature 97.2 F L 96.9 F L Pulse Rate 75 77 Respiratory Rate 17 16 Blood Pressure 142/77 H 116/72 Pulse Oximetry 99 100 Oxygen Flow Rate 0 0 Oxygen Delivery Method Room Air Oxygen Flow Rate 0 Narrative Exam Narrative: NAD, alert and oriented. Fluent speech. Lungs are clear, normal rate and effort. Heart is regular, no murmur gallop or rub. Abdomen is soft, non distended. Extremities are free of edema. Dysconjugate is with a medial gaze paresis of the left eye Left facial and mouth weakness. Objective Imaging MRI - head: Radiologist's impression: Repeat MRI brain 06/06 (new sx of mouth and face weakness): 1. 3 separate areas of infarct are present, unchanged in size and number from the previous study. Findings include a small wedge-shaped subacute right cerebellar hemisphere infarct, a punctate midline posterior desiree infarct, and a punctate high left parietal cortical infarct. Associated cytotoxic edema. 2. No new or increasing infarcts. 3. Very mild , age-appropriate small-vessel ischemic change. Comment: Consider cardiac or posterior circulation embolic source. Labs 06/06/24 04:50 06/06/24 04:50 Labs: Laboratory Results - last 24 hr 06/06/24 04:50 WBC 6.6 RBC 4.01 Hgb 12.6 Hct 37.6 MCV 93.7 MCH 31.5 MCHC 33.6 RDW 12.2 Plt Count 311 Sodium 132 L Potassium 4.0 Chloride 102 Carbon Dioxide 23 BUN 12 Creatinine 0.56 Estimated GFR > 60 BUN/Creatinine Ratio 21.4 Glucose 97 Calcium 8.9 [facility] Medical History Coronary artery disease Iliotibial band syndrome, left leg Rib pain on left side Left axis deviation POP (dyspnea on exertion) Somatic dysfunction of lower extremity Short leg syndrome, left, acquired Upper extremity somatic dysfunction Chronic bilateral thoracic back pain Chronic bilateral low back pain without sciatica Left hip pain Pain aggravated by anxiety Thoracic compression fracture Cranial somatic dysfunction Cervical somatic dysfunction Segmental and somatic dysfunction of abdomen and other regions Sacral region somatic dysfunction Pelvic somatic dysfunction Lumbar region somatic dysfunction Body posture problem Acute right-sided thoracic back pain Thoracic region somatic dysfunction Segmental and somatic dysfunction of rib cage Rib pain on right side Sarcoidosis of lung Borderline hypothyroidism Vision disorder Osteoarthritis of right hand (~2015) Pneumonia (~2011) Allergies Degeneration of spine Shoulder pain (~2017) Osteoporosis (~2000) Osteopenia (~1997) Hip fracture (~1998) Rubella (~1963) Mumps Measles (~1953) Oral herpes Chicken pox (~1957) Recurrent sinusitis Hearing loss Abnormal Pap smear of cervix Frequent UTI GERD (gastroesophageal reflux disease) Colon polyps (~2018) Precancerous skin lesion (~2017) Cataract fragments of both eyes following cataract surgery Surgical History Status post kyphoplasty Anesthesia History of cataract removal with insertion of prosthetic lens (~2015) Hx of total hip arthroplasty Family History Father Vascular disease Liver disease Mother Cancer Grandfather Cancer Diabetes mellitus Grandmother Congestive heart failure Grandfather History of heart disease Grandmother History of heart disease Family/Other Hypertension Social History household members: spouse Smoking Status: Never smoker second hand exposure: No alcohol intake: current substance use type: does not use Assessment & Plan Assessment & Plan narrative: 1. 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 2. 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 3. Chronic pulmonary sarcoid, present on admission and stable. 4. Hypothyroidism, present on admission and stable. Plan: -loaded with dual antiplatelet therapy, started regular dual antiplatelet therapy on June 05. -high dose statin, continue. . -24 hours of telemetry, rule out arrhythmia. None detected. -resting lipid profile. LDL high DISPO: She was considering inpatient rehab versus going home. We are awaiting for her referral answer. Otherwise should go home later on June 06 or June 07. Time-Based Coding :: 25 min spent with patient and on the chart (including review of chart, obtaining history, exam, reviewing outside data, placing orders, documenting exam and treatment plan, and counseling patient) on 06/06. Quality VTE Deep Vein Thrombosis/Pulmonary Embolism Present on Admission: No
--- NOTE | 2024-06-06 13:37 | CM.DPC ---
Addendum entered by BRIGITTE Arriaga 06/06/24 15:14: ADD: Return call from Katlyn at [facility] and no case resolution specialist in-house but they work on neuro deficits and feel pt would really benefit. OT was able to discuss recommendation of Acute Rehab more with pt and spouse bedside and they are agreeable to Acute rehab now. SW met bedside and answered additional questions and spouse confirms he can provide transport tomorrow and agreeable with the request from [facility] on discharge around 1100 tomorrow. Katlyn from [facility] agreeable to call spouse and pt and answer additional questions. SW updated MD. Plan: Patient to discharge tomorrow Tues to [facility] re[facility] via spouse POV around 1100. BF Original Note: DCP Home vs Acute Per MD/PT/OT, recommending Acute Rehab at discharge and CC Katt made referral to [facility] and admissions Katlyn confirms they can accept the pt at discharge. ST eval and recommending outpt or HH ST as pt able to swallow and just needs some exercises for strengthening facial muscles. SW met bedside with pt and explained role again and pt confirms that she feels her mobility and fine motor skills and swallow/speech are manageable without much assist and pt would be agreeable to Acute Rehab if they have an case resolution specialist as this is her primary challenge with the Diplopia. If no case resolution specialist (neuro-creative services director) then pt preference is to discharge home with family and follow up with specialist in the outpt setting. GERALD called [facility] and left msg inquiring about access to case resolution specialist. BRIGITTE Arriaga
--- NOTE | 2024-06-06 14:09 | PT.IPTN ---
Current Diagnoses Cerebral infarction, unspecified (06/04/24) Physical Therapy Treatment Note M2 PT-IP Current Condition Start: 06/05/24 10:22 Freq: NEEDED Status: Active Protocol: Document 06/05/24 10:58 MB (Rec: 06/05/24 11:20 MB [id number]) Physical Therapy Current Condition Current Condition Evaluation Date 06/05/24 Treatment Diagnosis CVA right cerebellum, desiree, 6th cranial nerve nucleus M3 PT-IP Subjective Start: 06/05/24 10:22 Freq: NEEDED Status: Active Protocol: Document 06/06/24 10:08 MB (Rec: 06/06/24 14:09 MB [id number]) Subjective Physical Therapy Visit Type Type Treatment Note Visit Start Time 10:08 Visit Stop Time 10:23 Notes PT checks on pt three more times this date to initiate mobility and pt is unavailable d/t meals or other interventions with staff Physical Therapy Visit Comments Patient Comments Pt has some questions about disposition. M4 PT-IP Mobility and Gait Start: 06/05/24 10:22 Freq: NEEDED Status: Active Protocol: Document 06/06/24 10:08 MB (Rec: 06/06/24 14:09 MB [id number]) PT-Transfer Assessment Comments Mobility Comments PT performs oculomotor screen to assess visual presentation today: ongoing central presenting spontaneous nystagmus that changes directions with difference gaze and nystagmus beats the gaze direction. Ongoing challenges closing right eye M5 PT-IP Objective Assessments Start: 06/05/24 10:22 Freq: NEEDED Status: Active Protocol: Document 06/05/24 10:58 MB (Rec: 06/05/24 11:20 MB [id number]) Orientation Orientation/Cognition Level of Alertness Alert Orientation Name,Age,Birthday,Month,Date, Year,Day of Week,Place, Situation Language Function Ability No Deficits Noted Safety Awareness Decreased Safety Awareness Memory Description No Deficits Noted Gross Range of Motion Upper Extremity ROM Impairments Defer to OT and does look normal on PT assessment date Lower Extremity ROM Assessment Within Functional Limits Strength Lower Extremity Strength Assessment Within Functional Limits Coordination Assessment Gross Coordination Gross Coordination Impaired Assessment Finger to Nose Test Minimal Impairment Pronation/Supination Test Normal Performance Foot Tapping Test Minimal Impairment Heel on Mayes Test Normal Performance Coordination Comments Mild impairment toe tapping tests with left foot Sensation Assessment Sensation Gross Sensation WNL Muscle Tone Muscle Tone WNL Yes M6 PT-IP Treatment Start: 06/05/24 10:22 Freq: NEEDED Status: Active Protocol: Document 06/06/24 10:08 MB (Rec: 06/06/24 14:09 MB [id number]) Physical Therapy Treatment Other Treatments Other Treatment Performed Ed pt and in differences between home, home health, outpatient, and acute rehab therapies, benefits of acute rehab, 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 M7 PT-IP Assessment and Plan Start: 06/05/24 10:22 Freq: NEEDED Status: Active Protocol: Document 06/06/24 10:08 MB (Rec: 06/06/24 14:09 MB [id number]) PT Summary Assessment and Plan Potential Rehabilitation Potential Excellent Status of Condition at Evaluation Evolving Summary Impairments Balance,Coordination,Bed Mobility,Transfers,Gait, Activity Tolerance Progress Towards Goals Progressing Toward Goals Assessment Summary PT is only able to get in oculomotor screen today d/t scheduling challenges. PT does feel that pt will most benefit from acute rehab given previous I level and driving and current presentation of visual changes, diplopia post- stroke. This affects balance and gait. Goals Bed Mobility Goal Independent Transfer Goal Independent Gait Goal Independent Gait Distance 100 Other Goals Pt will ascend and descend 2 steps with LRAD and no more than superv assistance to allow safe home entrance. Pt will perform WNLs on standardized balance test to decrease fall risk. For goals, use LRAD and progress to no AD if appropriate. Days to Meet Goals 5 Frequency of Treatment Frequency Of Treatment Once a Day Treatment Plan Physical Therapy Treatment Plan Bed Mobility Training,Transfer Training,Gait Training, Therapeutic Exercise,Balance Retraining,Discharge Planning, Neuromuscular Re-ed, Coordination Retraining,Manual Therapy Weight Bearing Status Weight Bearing Status Weight Bear as Tolerated Recommendations To Nursing Amount of Assist Needed 1 Person Assist Discharge Recommendations Other Discharge Recommendations Currently, acute rehab at d/c and need to await OT and [employer] consults. Transportation Needs at Discharge Private Vehicle
--- NOTE | 2024-06-06 14:41 | ST.IPCSEOM ---
Visit Care Team Role Provider Type Ernie Parsons DO Primary Care Provider Physician Specialty: Family Practice Address: [address] [place] [address] Email: Cuong Pappas MD Emergency Provider Physician Referring Provider Specialty: Emergency Medicine Address: [address] [place] [address] Fax: Email: [email or web address] Luis Toledo MD Admit Provider Physician Attending Provider Specialty: Internal Medicine Address: [address] [place] [address] Email: [email or web address] Current Diagnoses Cerebral infarction, unspecified (06/04/24) Past Medical History (Last Reviewed 06/04/24 @ 16:55 by Luis Toledo MD) Abnormal Pap smear of cervix (Medical) Acute right-sided thoracic back pain (Medical) Allergies (Medical) Body posture problem (Medical) Borderline hypothyroidism (Medical) Cataract fragments of both eyes following cataract surgery (Medical) Cervical somatic dysfunction (Medical) Chicken pox (Medical ~1957) Chronic bilateral low back pain without sciatica (Medical) Chronic bilateral thoracic back pain (Medical) Colon polyps (Medical ~2018) Coronary artery disease (Medical) Cranial somatic dysfunction (Medical) Degeneration of spine (Medical) Mild POP (dyspnea on exertion) (Medical) Frequent UTI (Medical) -1989' GERD (gastroesophageal reflux disease) (Medical) Hearing loss (Medical) Mild Hip fracture (Medical ~1998) Iliotibial band syndrome, left leg (Medical) Left axis deviation (Medical) Left hip pain (Medical) Lumbar region somatic dysfunction (Medical) Measles (Medical ~1953) Mumps (Medical) Oral herpes (Medical) Osteoarthritis of right hand (Medical ~2015) Osteopenia (Medical ~1997) Osteoporosis (Medical ~2000) Pain aggravated by anxiety (Medical) Pelvic somatic dysfunction (Medical) Pneumonia (Medical ~2011) Precancerous skin lesion (Medical ~2018) excised Recurrent sinusitis (Medical) Rib pain on left side (Medical) Rib pain on right side (Medical) Rubella (Medical ~1963) Scottish Measles? Sacral region somatic dysfunction (Medical) Sarcoidosis of lung (Medical) Segmental and somatic dysfunction of abdomen and other regions (Medical) Segmental and somatic dysfunction of rib cage (Medical) Short leg syndrome, left, acquired (Medical) Shoulder pain (Medical ~2018) Somatic dysfunction of lower extremity (Medical) Thoracic compression fracture (Medical) Thoracic region somatic dysfunction (Medical) Upper extremity somatic dysfunction (Medical) Vision disorder (Medical) Very mild Speech-Language Pathology Swallow Evaluation OPERATIONS MANAGER Clinical Swallow Evaluation Start: 06/06/24 13:05 Freq: Status: Active Protocol: Document 06/06/24 13:06 SS (Rec: 06/06/24 13:15 [id number]) Clinical Swallow Evaluation Session Time Visit Start Time 12:44 Visit Stop Time 13:03 Total Visit Minutes 19 Visit Information Visit Number Initial Evaluation Referral Referring Provider Dr. Luis Toledo Reason for Referral Evaluate swallowing function s /p CVA Setting Assessment Location Acute Care Visit Type Note Type Initial evaluation Patient Information Identification Type Name History Pt is a 74 year-old female who was seen by OPERATIONS MANAGER for evaluation/treatment of speech , language, voice, cognitive- communication, and swallowing function following subacute right cerebellar hemisphere infarct, a punctate midline posterior desiree infarct, and a punctate high left parietal cortical infarct on . Pt has history of dyspnea on exertion, cranial somatic dysfunction, osteoporosis, and GERD. Per H& P, she recently had a abnormal stress test to evaluate her dyspnea and then was sent to [facility] for a coronary catheterization on June 02 . Shortly after the procedure , she developed diplopia. It is suspected that the brainstem and cerebellar infarcts relate to cholesterol emboli from her catheterization procedure. Pt currently on regular texture diet and thin liquids. Subjective Observations Pt was seen sitting upright in armchair. She was alert and oriented x4 and was able to answer case history questions appropriately. Speech, language, and cognition were assessed informally in conversation, and were noted to be within normal limits. Pt denied any change from baseline. OPERATIONS MANAGER facilitated discussion re: observations/ concerns related to swallowing . Pt expressed she has noted left facial weakness and has been unable to drink liquid via straw. She denied labial escape. She also denied overt s/sx of aspiration with intake . Reported by Patient/Caregiver Current Diet Regular (IDDSI 7) Baseline Feeding Method Independent in self-feeding The IDDSI Framework Protocol: IDDSI.1 Objective Assessment Mental Status Alert,Responsive,Cooperative Oral Integrity WFL Dentition Within normal limits Lip Function Mild impairment Observation of Lips at Rest Left sided weakness/Drooping Pucker Left sided weakness/drooping Lip Retraction Left sided weakness/Drooping Tongue Function Within normal limits Tongue Protrusion Deviates to the right Tongue Lateralization Deviates to the right Jaw Function Within normal limits Observation of Jaw at Rest Within normal limits Jaw Opening Within normal limits Jaw Closing Within normal limits Jaw Lateralization Deviates to the right Jaw Protrusion Deviates to the right Jaw Retraction Reduced range of motion Hard/Soft Palate Function Within normal limits Observations of Hard/Soft Palate Within normal limits Respiratory Sufficiency Within normal limits Comment Mild jaw deviation to to the right with lateralization. Mild lingual deviation to the right with lateralization, though ROM and coordination WNL. Difficulty holding air when puffing cheeks with loss of steady stream of air noted. Food and Liquid Trials Position During Assessment Upright (90 degrees) Liquids Trialed Thin (IDDSI 0) Solid Trials Purred (IDDSI 4),Regular ( IDDSI 7) Administration Type Cup single sip,Cup consecutive sips,Straw,Self-feeding Oral Impairment Mildly impaired Oral Phase Comments Patient took several sips of thin liquid via straw. She had difficulty achieving labial closure with straw on left side, though was able to suck liquid through straw when she repositioned the straw to the right side. She took single and sequential sips via cup with good oral acceptance and adequate labial closure. She demonstrated functional mastication with timely oral transit and complete oral clearance. Pharyngeal Impairment Within normal limits Pharyngeal Phase Comments Pharyngeal swallow appears prompt. No overt s/sx of aspiration with provided consistencies. Aspiration risk appears low. Fatigue/Endurance Endurance WNL Mccarr Swallow Protocol Yes Results The Mccarr Swallow Protocol is an evidence-based swallow screening protocol to determine aspiration risk. This tool has been validated across a number of different patient diagnoses and in a number of clinical settings. This is the only screening instrument that both identifies aspiration risk and , when passed, is able to recommend specific oral diets without the need for further instrumental dysphagia testing . Based upon research by Drs. Cuong Menon and Helen Cantu, this is a reliable and validated swallow screening protocol. Cognitive Screen: PASS Results with 3oz water test: PASS Results with cracker: PASS The IDDSI Framework Protocol: IDDSI.1 Findings Swallowing Function Oral phase dysphagia Severity of Swallow Impairment Mildly impaired Contributing Factors to Swallow Reduced oral strength/ Impairment coordination/sensation Prognosis Good Based on Cognitive status,Family support Impact on Safety and Functioning No limitations Recommendations Instrumental Assessment No Swallowing Treatment No Recommended Solids Regular (IDDSI 7) Recommended Liquids Thin (IDDSI 0) Other Recommendations Recommend continuation of regular texture diet, thin liquids, and meds whole with liquid wash as tolerated. Recommend OPERATIONS MANAGER services at next level of care targeting labial seal and left-sided facial weakness if symptoms do not resolve and continue to affect swallowing efficiency. No further OPERATIONS MANAGER services indicated for dysphagia at current level of care. Please re-consult if new concerns. Medication Recommendations As Tolerated,Whole Discharge Recommendations Home with Home Health, Outpatient therapy Education Patient/Caregiver Education Described results of evaluation,Patient expressed understanding of evaluation
[2024-06-06 15:56] VITALS: BP 117/73; PULSE 84; RESP 16; TEMP 36.2; O2SAT 98
[2024-06-06 20:00] VITALS: BP 138/81; PULSE 79; RESP 19; TEMP 36.1; O2SAT 99
[2024-06-06] MEDS: ATORVASTATIN 20 MG TABLET 80 MG PO (20:41)
[2024-06-07] VITALS: BP 112/82; PULSE 64; RESP 16; TEMP 35.8; O2SAT 95
[2024-06-07] MEDS: LORazepam 2 MG/ML INJ 0.5 MG IV (01:00)
[2024-06-07 04:00] VITALS: BP 102/58; PULSE 64; RESP 15; TEMP 35.7; O2SAT 95
[2024-06-07 08:00] VITALS: BP 118/73; PULSE 79; RESP 16; TEMP 36.2; O2SAT 100
--- NOTE | 2024-06-07 08:07 | PM.DS.1 ---
History of Present Illness History of Present Illness Date Patient Seen: 06/07/24 Time Patient Seen: 08:07 Chief complaint: sent from [facility]- double vision, dizzy Narrative: Per admitting provider, The patient was a 74-year-old female who has history of pulmonary sarcoid. She recently had a abnormal stress test to evaluate her dyspnea and then was sent to [facility] for a coronary catheterization. This happened on June 02. Shortly after procedure she developed diplopia. She has had diplopia which has not really improved since that time. The diplopia is worse if she looks to her right. She denies headache. No numbness weakness of arms or legs. No difficulty walking. Her speech is also normal. Her vision he was normal, other than diplopia. She has no history of TIA, or stroke. No head trauma. In the ED MRI revealed brainstem and cerebellar infarcts. It was suspected that this may relate to cholesterol emboli from her catheterization procedure. She was discussed with Neurology at [facility], recommendations for loading of dual antiplatelet therapy and high dose statin. Recommendations also for 24 hours of telemetry to rule out arrhythmia as well as echo to rule out PFO. She denies feeling off otherwise recently. She was pulmonary sarcoid has had dyspnea on exertion which led to these additional tests. Her weight continues to be low and her BMI is 18. She was in [place], with her . Discharge Providers Provider Date of admission: 06/04/24 15:03 Discharge Date: 06/07/24 Primary care physician: Ernie Parsons DO Consults: 06/04/24 16:03 Consult to Discharge Planning Routine Comment: Consult to Occupational Therapy Evaluate & Treat Comment: Physician Instructions: Evaluate and treat Consult to Physical Therapy Evaluate & Treat Comment: Physician Instructions: Evaluate and Treat Consult to Speech Therapy Evaluate & Treat Comment: Physician Instructions: Evaluate and treat Discharge provider: Kiko Correa DO Summary Hospital Course Discharge Diagnosis: 1. 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 2. 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 3. Chronic pulmonary sarcoid, present on admission and stable. 4. Hypothyroidism, present on admission and stable. Hospital Course: This is a 74 year old female with PMH of sarcoid and hypothyroidism who had recent cardiac cath who presented with diplopia, MRI showed subacute infarcts of the R cerebellum and desiree. Tele-stroke service recommended DAPT for 21 days and high intensity statin which were started. After 21 days consider change to aspirin or clopidogrel only. Telemetry was unremarkable during her stay. She had no further worsening of stroke symptoms. After therapy evaluations she was recommended for acute rehab for recovery after her acute infarct where she should continue with speech, physical and occupational therapies. No other changes to her home medications were recommended on discharge. Time Spent with Patient Time spent: Greater than 30 minutes Exam Vital Signs (past 8 hours): - 06/07/24 04:00 Temperature 96.2 F L Pulse Rate 64 Respiratory Rate 15 Blood Pressure 102/58 L Pulse Oximetry 95 Oxygen Flow Rate 0 Oxygen Delivery Method Room Air Oxygen Flow Rate 0 Narrative Exam Narrative: NAD, alert and oriented. Fluent speech. Lungs are clear, normal rate and effort. Heart is regular, no murmur gallop or rub. Abdomen is soft, non distended. Extremities are free of edema. Dysconjugate is with a medial gaze paresis of the left eye Left facial and mouth weakness. Objective Labs 06/06/24 04:50 06/06/24 04:50 [facility] Medical History Coronary artery disease Iliotibial band syndrome, left leg Rib pain on left side Left axis deviation POP (dyspnea on exertion) Somatic dysfunction of lower extremity Short leg syndrome, left, acquired Upper extremity somatic dysfunction Chronic bilateral thoracic back pain Chronic bilateral low back pain without sciatica Left hip pain Pain aggravated by anxiety Thoracic compression fracture Cranial somatic dysfunction Cervical somatic dysfunction Segmental and somatic dysfunction of abdomen and other regions Sacral region somatic dysfunction Pelvic somatic dysfunction Lumbar region somatic dysfunction Body posture problem Acute right-sided thoracic back pain Thoracic region somatic dysfunction Segmental and somatic dysfunction of rib cage Rib pain on right side Sarcoidosis of lung Borderline hypothyroidism Vision disorder Osteoarthritis of right hand (~2015) Pneumonia (~2011) Allergies Degeneration of spine Shoulder pain (~2018) Osteoporosis (~2000) Osteopenia (~1997) Hip fracture (~1998) Rubella (~1963) Mumps Measles (~1953) Oral herpes Chicken pox (~1957) Recurrent sinusitis Hearing loss Abnormal Pap smear of cervix Frequent UTI GERD (gastroesophageal reflux disease) Colon polyps (~2018) Precancerous skin lesion (~2018) Cataract fragments of both eyes following cataract surgery Surgical History Status post kyphoplasty Anesthesia History of cataract removal with insertion of prosthetic lens (~2016) Hx of total hip arthroplasty Family History Father Vascular disease Liver disease Mother Cancer Grandfather Cancer Diabetes mellitus Grandmother Congestive heart failure Grandfather History of heart disease Grandmother History of heart disease Family/Other Hypertension Social History household members: spouse Smoking Status: Never smoker second hand exposure: No alcohol intake: current substance use type: does not use Discharge Plan Discharge Plan Patient Disposition: [facility] Other facility[place] [facility] [place] Provider Discharge Comment: You were admitted to the hospital with a stroke. Transfer to acute rehab for ongoing therapies after your stroke. 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 Discharge Health Status Precautions: Ong Diet/Activity/Treatments Diet: Diet as Tolerated and Regular Liquid consistency: Normal/Thin Food texture: Regular Activity: As tolerated, no restrictions. Discharge Data Primary Care Provider: Ernie Parsons VTE Deep Vein Thrombosis/Pulmonary Embolism Present on Admission: No
[2024-06-07] MEDS: ASPIRIN EC 81 MG TABLET PO (09:06)
[2024-06-07] MEDS: HEPARIN 5,000 UNIT/ML VIAL 5000 UNIT SUBCUT (09:06)
[2024-06-07] MEDS: CLOPIDOGREL 75 MG TABLET PO (09:06)
[2024-06-07] MEDS: SODIUM CHLORIDE 0.9% FLUSH 10 ML IV (09:07)
--- NOTE | 2024-06-07 10:35 | CM.DPC ---
DCP Discharge Acute Inpt Rehab Per MD, pt is medically stable to discharge to Acute Rehab today and completed d/c packet. SW called [facility] Acute admissions [place] and confirmed they can still accept pt today and faxed signed med list, MD orders, and d/c summary to review along with ST eval note. SW met bedside with pt and spouse and they confirm they remain agreeable with d/c to [facility] Acute today and spouse to provide transport and SW provided name of recommended Vision Therapy Dr. Bautista in [place] for pt and spouse to review and call to discuss to see if this would be a good fit for ongoing tx of pt's Diplopia. SW updated RN and hand dry cleaner. Plan: Patient to discharge to [facility] Acute Rehab today via spouse POV around 1100 before safe return home with spouse. BRIGITTE Arriaga
--- NOTE | 2024-06-07 11:14 | PC.NURSE ---
IV and telemetry removed. Discussed new medications, follow up, worsening symptoms. No further questions. Patient wheeled out to private vehicle with who will transport her to rehab. Gave report to Amy at -no further questions.
== END 2024-06-07 11:05 | DRG 66 ==
LOC: ED 15:01 → AC 06-05 08:43
PROVIDERS: Admitting Provider Hospitalist; Emergency Provider Emergency Medicine; PCP Family Medicine; Referring Provider Emergency Medicine; Visit Provider Hospitalist
DX: I63.9 Cerebral infarction, unspecified (principal); H53.2 Diplopia; H49.881 Other paralytic strabismus, right eye; D86.0 Sarcoidosis of lung; E03.9 Hypothyroidism, unspecified; R29.701 NIHSS score 1; R29.704 NIHSS score 4; Z98.61 Coronary angioplasty status
CPT/HCPCS: 36415; 70544; 70549; 70551; 70553; 80048; 80053; 80061; 81001; 82550; 82962; 83036; 84484; 85025; 85027; 85610; 85730; 92610; 93005; 93010; 93306; 96374; 97162; 97166; 97530; 97535; 99285; 99291; A9579; J1644; J2060

== ENCOUNTER 2024-07-26 12:15 | Outpatient (RCR) | payer MEDICARE, OTHER, SELFPAY ==
[2024-06-04 15:53] VITALS: BMI 19.8
--- NOTE | 2024-07-22 16:27 | PT.OIE ---
Current Diagnoses Diplopia (07/22/24) Cerebral infarction due to embolism of unspecified cerebral artery (07/22/24) Ataxia, unspecified (07/22/24) Past Medical History (Last Reviewed 06/04/24 @ 16:55 by Luis Toledo MD) Abnormal Pap smear of cervix Acute right-sided thoracic back pain Allergies Body posture problem Borderline hypothyroidism Cataract fragments of both eyes following cataract surgery Cervical somatic dysfunction Chicken pox (~1957) Chronic bilateral low back pain without sciatica Chronic bilateral thoracic back pain Colon polyps (~2018) Coronary artery disease Cranial somatic dysfunction Degeneration of spine POP (dyspnea on exertion) Frequent UTI GERD (gastroesophageal reflux disease) Hearing loss Hip fracture (~1998) Iliotibial band syndrome, left leg Left axis deviation Left hip pain Lumbar region somatic dysfunction Measles (~1953) Mumps Oral herpes Osteoarthritis of right hand (~2015) Osteopenia (~1997) Osteoporosis (~2000) Pain aggravated by anxiety Pelvic somatic dysfunction Pneumonia (~2011) Precancerous skin lesion (~2017) Recurrent sinusitis Rib pain on left side Rib pain on right side Rubella (~1963) Sacral region somatic dysfunction Sarcoidosis of lung Segmental and somatic dysfunction of abdomen and other regions Segmental and somatic dysfunction of rib cage Short leg syndrome, left, acquired Shoulder pain (~2018) Somatic dysfunction of lower extremity Thoracic compression fracture Thoracic region somatic dysfunction Upper extremity somatic dysfunction Vision disorder Past Surgical History (Last Reviewed 06/04/24 @ 16:55 by Luis Toledo MD) Anesthesia History of cataract removal with insertion of prosthetic lens (~2015) Hx of total hip arthroplasty Status post kyphoplasty Visit Care Team Role Provider Type Ernie Parsons DO Family Provider Physician Primary Care Provider Specialty: Family Practice Address: [address] [place] [address], [id number] Email: Evelio Matthews MD Attending Provider Non-Staff Referring Provider Specialty: Physical Medicine and Rehab Address: [address] [place] [address] [place], [address] Email: Physical Therapy Initial Evaluation PT-OP-A Visit Information Start: 07/22/24 15:58 Freq: Status: Active Protocol: Document 07/22/24 15:15 DCW (Rec: 07/22/24 16:27 DCW [id number]) Out-Patient Physical Therapy Visit Information Visit Information Visit Type Initial Evaluation Visit Start Time 15:15 Visit Stop Time 16:00 Visit Number 1 Number of LEATHER WHITENER Visits 0 Evaluation Information Evaluation Date 07/22/24 PT-OP-B Current Condition Start: 07/22/24 15:58 Freq: Status: Active Protocol: Document 07/22/24 15:15 DCW (Rec: 07/22/24 16:27 [facility] [id number]) Current Condition History of Current Condition Onset Date 06/02/24 Current Complaints Oscillopsia History of Current Condition Pt is a 74 year old female presenting to vestibular therapy six weeks s/p CVA. Pt suffered a Cerebellar CVA during an Angiogram on 06/02. Notes she woke up with double vision, which was thought to be fentanyl related due to her procedure, and she was sent home. Followed-up to the ED on 06/04, MRI revealed acute/ subacute infarcts in R cerebellum and desiree, at level of CN nucleus. Pt was sent to rehab at [facility] in [place], where she stayed for three days, and then discharged home. Pt reports overall doing very well, diplopia has no longer been present. Current complaints are a lag in vision when turning her head or bending forward/backward. Denies any rotational vertigo symptoms, denies any falls. Pt has been compliant with HEP from rehab, which included 4- square saccades, pencil push- ups, VOR cancellation exercises, VOR X1, and corrective saccades. Overall substantial improvements in functional mobility and vision from initial CVA. Pt does note that she [place] weeks, so is hoping she's doing well enough at that time she can just get a few more exercises to take with her and progress to independent HEP. Prior Treatments and Tests Brain MRI: IMPRESSION: Acute to subacute infarcts noted involving the right cerebellum but also within the desiree at the expected level of the 6th cranial nerve nucleus. Correlate for lateral gaze palsy. Unremarkable MR angiogram of the head and neck . Right maxillary mucosal sinus disease. per Dax Gross M.D. on 06/04/2024. PT-OP-C Subjective Start: 07/22/24 15:58 Freq: Status: Active Protocol: Document 07/22/24 15:15 DCW (Rec: 07/22/24 16:27 DC [id number]) OP-PT Subjective Patient Comments Patient Comments A lag in my vision is the perfect discription of it, yes . Patient Reported Progress Improving Patient Questionnaires Dizziness Handicap Inventory DHI Score 32% Other Questionnaire Name and Score Falls Efficacy Scale - International: PT-OP-O Vestibular Start: 07/22/24 15:58 Freq: Status: Active Protocol: Document 07/22/24 15:15 DCW (Rec: 07/22/24 16:27 DCW [id number]) Vestibular Assessment Auditory Tests Rios Test Within normal limits Rinne Test Negative Air Conduction Results Equal Visual Testing Smooth Pursuits Horizontal WNL Smooth Pursuits Vertical WNL Saccades Horizontal WNL Saccades Vertical WNL Heave Test Positive Left Thrust Head Positive Left Convergence Test WNL DVA (Line Degradation) 5 PT-OP-T Assessment and Plan Start: 07/22/24 15:58 Freq: Status: Active Protocol: Document 07/22/24 15:15 DCW (Rec: 07/22/24 16:27 DC [id number]) Physical Therapy Assessment Rehab Potential Rehabilitation Potential Excellent Evaluation Complexity Number of Personal Factors/Comorbidities 1-2 Number of Body Systems Impaired 1-2 Clinical Presentation at Evaluation Stable Impairments Impairments Balance,Vestibular Goals One Impairment Pt exhibits a five line degradation in DVA testing Yeast Culture Operator Goal (LTG) Pt to improve DVA testing to < 4 line degradation in order to demonstrate improve VOR to decrease oscillopsia LTG Duration 08/22/24 Assessment Summary Assessment Pt presents to skilled therapy with sings and symptoms consistent with referring diagnosis. Pt currently doing very well, has made great progress since CVA six weeks ago. Pt diplopia has resolved, current complaint is ongoing oscillopsia. Pt exhibits mildly positive left thrust/ heave testing and a five-line degradation on her DVA testing , which indicates some continued oculomotor/VOR dysfunction. Pt already compliant with a very appropriate HEP, has been working hard since d/c from [facility], with excellent results. Discussed some changes to current HEP, mainly increasing he challenge by increasing speed of head turns and focusing on mildly irritating symptoms during HEP , goal to describe symptoms as a 1 or 2 out of 5. Pt likely leaving the state for the winter in the next few weeks, so will mainly focus on fine- tuning HEP. Physical Therapy Plan Frequency and Duration Frequency of Treatment 2x/Week Plan of Care Start Date 07/22/24 Plan of Care End Date 08/22/24 Therapeutic Interventions Therapeutic Interventions Balance Training,Home Exercise Program,Neuromuscular Re- education,Therapeutic Activities,Therapeutic Exercises,Vestibular Rehabilitation Next Visit Focus/Plan Next Note Type Treatment Note Next Visit Plan Focus on HEP, VOR/X1/X2 challenges, adaptation/ habituation exercises
--- NOTE | 2024-07-22 16:28 | PT.OPPOC ---
Physical, Occupational & Speech Therapy At [facility] Current Diagnoses Diplopia (07/22/24) Cerebral infarction due to embolism of unspecified cerebral artery (07/22/24) Ataxia, unspecified (07/22/24) Visit Care Team Role Provider Type Ernie Parsons DO Family Provider Physician Primary Care Provider Specialty: Family Practice Address: [address] [place] [address], [id number] Email: Evelio Matthews MD Attending Provider Non-Staff Referring Provider Specialty: Physical Medicine and Rehab Address: [address] [place] [address] [place], [address] Email: Plan Of Care PT-OP-B Current Condition Start: 07/22/24 15:58 Freq: Status: Active Protocol: Document 07/22/24 15:15 DCW (Rec: 07/22/24 16:27 DCW [id number]) Current Condition History of Current Condition Onset Date 06/02/24 Current Complaints Oscillopsia History of Current Condition Pt is a 74 year old female presenting to vestibular therapy six weeks s/p CVA. Pt suffered a Cerebellar CVA during an Angiogram on 06/02. Notes she woke up with double vision, which was thought to be fentanyl related due to her procedure, and she was sent home. Followed-up to the ED on 06/04, MRI revealed acute/ subacute infarcts in R cerebellum and desiree, at level of CN nucleus. Pt was sent to rehab at [facility] in [place], where she stayed for three days, and then discharged home. Pt reports overall doing very well, diplopia has no longer been present. Current complaints are a lag in vision when turning her head or bending forward/backward. Denies any rotational vertigo symptoms, denies any falls. Pt has been compliant with HEP from rehab, which included 4- square saccades, pencil push- ups, VOR cancellation exercises, VOR X1, and corrective saccades. Overall substantial improvements in functional mobility and vision from initial CVA. Pt does note that she will be leaving to travel [place] in a few weeks, so is hoping she's doing well enough at that time she can just get a few more exercises to take with her and progress to independent HEP. Prior Treatments and Tests Brain MRI: IMPRESSION: Acute to subacute infarcts noted involving the right cerebellum but also within the desiree at the expected level of the 6th cranial nerve nucleus. Correlate for lateral gaze palsy. Unremarkable MR angiogram of the head and neck . Right maxillary mucosal sinus disease. per Dax Gross M.D. on 06/04/2024. PT-OP-T Assessment and Plan Start: 07/22/24 15:58 Freq: Status: Active Protocol: Document 07/22/24 15:15 DCW (Rec: 07/22/24 16:27 DCW [id number]) Physical Therapy Assessment Rehab Potential Rehabilitation Potential Excellent Evaluation Complexity Number of Personal Factors/Comorbidities 1-2 Number of Body Systems Impaired 1-2 Clinical Presentation at Evaluation Stable Impairments Impairments Balance,Vestibular Goals One Impairment Pt exhibits a five line degradation in DVA testing Soliciting Freight Agent Goal (LTG) Pt to improve DVA testing to < 4 line degradation in order to demonstrate improve VOR to decrease oscillopsia LTG Duration 08/22/24 Assessment Summary Assessment Pt presents to skilled therapy with sings and symptoms consistent with referring diagnosis. Pt currently doing very well, has made great progress since CVA six weeks ago. Pt diplopia has resolved, current complaint is ongoing oscillopsia. Pt exhibits mildly positive left thrust/ heave testing and a five-line degradation on her DVA testing , which indicates some continued oculomotor/VOR dysfunction. Pt already compliant with a very appropriate HEP, has been working hard since d/c from [facility], with excellent results. Discussed some changes to current HEP, mainly increasing he challenge by increasing speed of head turns and focusing on mildly irritating symptoms during HEP , goal to describe symptoms as a 1 or 2 out of 5. Pt likely leaving the state for the winter in the next few weeks, so will mainly focus on fine- tuning HEP. Physical Therapy Plan Frequency and Duration Frequency of Treatment 2x/Week Plan of Care Start Date 07/22/24 Plan of Care End Date 08/22/24 Therapeutic Interventions Therapeutic Interventions Balance Training,Home Exercise Program,Neuromuscular Re- education,Therapeutic Activities,Therapeutic Exercises,Vestibular Rehabilitation Next Visit Focus/Plan Next Note Type Treatment Note Next Visit Plan Focus on HEP, VOR/X1/X2 challenges, adaptation/ habituation exercises Plan of Care Dates Plan of Care Start Date 07/22/24 Plan of Care End Date 08/22/24 Electronically Signed by: Lonnie Evans, PT 07/22/24 [id number] If you are in agreement with this Plan of Care, please return a signed and dated copy. I have reviewed this Plan of Care and certify that the skilled therapy services above are required to meet the patient?s needs. Physician Signature Date Printed Name and Credentials Clinical Instructor Signature Printed Name and Credentials
--- NOTE | 2024-07-26 13:00 | PT.OTN ---
Current Diagnoses Diplopia (07/26/24) Cerebral infarction due to embolism of unspecified cerebral artery (07/26/24) Ataxia, unspecified (07/26/24) Physical Therapy Treatment Note PT-OP-A Visit Information Start: 07/22/24 15:58 Freq: Status: Active Protocol: Document 07/26/24 12:15 DCW (Rec: 07/26/24 12:59 DCW [id number]) Out-Patient Physical Therapy Visit Information Visit Information Visit Type Discharge Summary Visit Start Time 12:15 Visit Stop Time 13:00 Visit Number 2 Number of MATERIAL HANDLING TECHNICIAN Visits 0 Evaluation Information Evaluation Date 07/22/24 PT-OP-B Current Condition Start: 07/22/24 15:58 Freq: Status: Active Protocol: Document 07/22/24 15:15 DCW (Rec: 07/22/24 16:27 DCW [id number]) Current Condition History of Current Condition Onset Date 06/02/24 Current Complaints Oscillopsia History of Current Condition Pt is a 74 year old female presenting to vestibular therapy six weeks s/p CVA. Pt suffered a Cerebellar CVA during an Angiogram on 06/02. Notes she woke up with double vision, which was thought to be fentanyl related due to her procedure, and she was sent home. Followed-up to the ED on 06/04, MRI revealed acute/ subacute infarcts in R cerebellum and desiree, at level of CN nucleus. Pt was sent to rehab at [facility] in [place], where she stayed for three days, and then discharged home. Pt reports overall doing very well, diplopia has no longer been present. Current complaints are a lag in vision when turning her head or bending forward/backward. Denies any rotational vertigo symptoms, denies any falls. Pt has been compliant with HEP from rehab, which included 4- square saccades, pencil push- ups, VOR cancellation exercises, VOR X1, and corrective saccades. Overall substantial improvements in functional mobility and vision from initial CVA. Pt does note that she [place], so is hoping she's doing well enough at that time she can just get a few more exercises to take with her and progress to independent HEP. Prior Treatments and Tests Brain MRI: IMPRESSION: Acute to subacute infarcts noted involving the right cerebellum but also within the desiree at the expected level of the 6th cranial nerve nucleus. Correlate for lateral gaze palsy. Unremarkable MR angiogram of the head and neck . Right maxillary mucosal sinus disease. per Dax Gross M.D. on 06/04/2024. PT-OP-C Subjective Start: 07/22/24 15:58 Freq: Status: Active Protocol: Document 07/26/24 12:15 DCW (Rec: 07/26/24 12:59 DCW [id number]) OP-PT Subjective Patient Comments Patient Comments I drove here today. Pt notes she has done well with increasing the difficulty with her HEP. PT-OP-O Vestibular Start: 07/22/24 15:58 Freq: Status: Active Protocol: Document 07/22/24 15:15 DCW (Rec: 07/22/24 16:27 DCW [id number]) Vestibular Assessment Auditory Tests Rios Test Within normal limits Rinne Test Negative Air Conduction Results Equal Visual Testing Smooth Pursuits Horizontal WNL Smooth Pursuits Vertical WNL Saccades Horizontal WNL Saccades Vertical WNL Heave Test Positive Left Thrust Head Positive Left Convergence Test WNL DVA (Line Degradation) 5 PT-OP-Q Treatments Start: 07/22/24 15:58 Freq: Status: Active Protocol: Document 07/26/24 12:15 DCW (Rec: 07/26/24 12:59 DCW [id number]) Neuro Re-Education Treatment Balance Activities Tandem Details X1 = Horizontal, Vertical Surface Tandem Stance Foam Details X1 - Horizontal, Vertical, Diagonals Surface AirEx Comments Metronome 120 bpm PT-OP-T Assessment and Plan Start: 07/22/24 15:58 Freq: Status: Active Protocol: Document 07/26/24 12:15 DCW (Rec: 07/26/24 12:59 DCW [id number]) Physical Therapy Assessment Impairments Impairments Balance,Vestibular Goals One Impairment Pt exhibits a five line degradation in DVA testing Motion Graphics Designer Goal (LTG) Pt to improve DVA testing to < 4 line degradation in order to demonstrate improve VOR to decrease oscillopsia LTG Duration 08/22/24 Assessment Summary Assessment Focused on increasing difficulty of prior HEP, pt feeling good about overall progress. Leaving town for the winter, pt requesting discharge from skilled vestibular therapy at this time. Pt understands that she will need a new referral in order to return in the future. Physical Therapy Plan Frequency and Duration Frequency of Treatment 2x/Week Plan of Care Start Date 07/22/24 Plan of Care End Date 08/22/24 Therapeutic Interventions Therapeutic Interventions Balance Training,Home Exercise Program,Neuromuscular Re- education,Therapeutic Activities,Therapeutic Exercises,Vestibular Rehabilitation Next Visit Focus/Plan Next Note Type Treatment Note Next Visit Plan Focus on HEP, VOR/X1/X2 challenges, adaptation/ habituation exercises
== END 2024-07-29 14:21 | disposition home or self-care (01) ==
LOC: PHYS 12:15
PROVIDERS: Family Provider Family Medicine; PCP Family Medicine; Referring Provider Physical Medicine & Rehabilitation; Visit Provider Physical Medicine & Rehabilitation
DX: I63.40 Cerebral infarction due to embolism of unspecified cerebral artery (principal); H53.2 Diplopia; R27.0 Ataxia, unspecified
CPT/HCPCS: 97112; 97161

== ENCOUNTER → 2025-03-20 08:34 | Outpatient (CLI) | payer MEDICARE, OTHER, SELFPAY ==
[2024-12-23 16:22] VITALS: BMI 19.8
[2025-03-20 09:25] LABS: Add Manual Diff / Slide Review NO; Basophils Absolute Auto 100 /uL (0-100); Basophils Percent Auto 1.2 % (0-2); Eosinophils Absolute Auto 400 /uL (0-450); Eosinophils Percent Auto 6.3 % (2-4); Hematocrit 39.4 % (36-46); Hemoglobin 13.1 g/dL (12.0-16.0); Lymphocytes Absolute Auto 2600 /uL (1100-4500); Lymphocytes Percent Auto 44.4 % (25-40); Mean Corpuscular HGB Conc 33.4 % (30-36); Mean Corpuscular Hemoglobin 31.6 PG (26-34); Mean Corpuscular Volume 94.7 fL (80-100); Monocytes Absolute Auto 500 /uL (0-900); Monocytes Percent Auto 8.3 % (3-14); Neutrophils Absolute Auto 2300 /uL (1500-7000); Neutrophils Percent Auto 39.8 % (50-75); Platelet Count 335 X10^3/uL (150-400); Red Blood Cell Count 4.16 X10^6/uL (4.0-5.2); Red Cell Distribution Width 12.9 % (11.6-14.8); White Blood Cell Count 5.8 X10^3/uL (4.5-11.0)
[2025-03-20 09:36] LABS: Alanine Aminotransferase 18 IU/L (<35); Albumin Globulin Ratio 1.4 (1.0-2.8); Alkaline Phosphatase 59 U/L (38-126); Aspartate Aminotransferase 26 IU/L (14-36); BUN Creatinine Ratio 31.7 (6-22); Bilirubin Total 0.6 mg/dL (0.2-1.3); Blood Urea Nitrogen 20 mg/dL (7-17); Calcium 9.2 mg/dL (8.4-10.2); Carbon Dioxide 27 mmol/L (22-32); Chloride 102 mmol/L (98-107); Cholesterol 152 mg/dL (140-199); Estimated Glomerular Filt Rate > 60 mL/min (>60); Globulin 2.9 g/dL (1.7-4.1); Glucose 94 mg/dL (70-99); HDL Cholesterol 60 mg/dL (40-60); HEMOLYSIS < 15 (0-50); LDL Cholesterol Calculated 79 mg/dL (<100); Potassium 4.6 mmol/L (3.4-5.1); Sodium 136 mmol/L (137-145); Total Protein 6.9 g/dL (6.3-8.2); Triglycerides 65 mg/dL (35-150)
== END ==
LOC: LAB 08:38
PROVIDERS: Family Provider Family Medicine; PCP Family Medicine; Referring Provider Family Medicine; Visit Provider Family Medicine
DX: E78.2 Mixed hyperlipidemia (principal); Z79.899 Other long term (current) drug therapy
CPT/HCPCS: 36415; 80053; 80061; 85025

== ENCOUNTER → 2025-04-05 16:09 | Outpatient (CLI) | payer MEDICARE, OTHER, SELFPAY ==
[2024-12-23 16:22] VITALS: BMI 19.8
== END ==
PROVIDERS: PCP Family Medicine; Visit Provider Family Medicine
DX: M54.50 Low back pain, unspecified (principal); G89.29 Other chronic pain; R39.9 Unspecified symptoms and signs involving the genitourinary system
CPT/HCPCS: 87086

== ENCOUNTER → 2025-07-07 15:53 | Outpatient (CLI) | payer MEDICARE, OTHER, SELFPAY ==
[2024-12-23 16:22] VITALS: BMI 19.8
--- NOTE | 2025-07-07 15:55 | DI.RAD.S_ITS ---
PROCEDURE: XR CHEST 2V INDICATIONS: midline chest pain after eating, hx sarcoidosis TECHNIQUE: 2 views of the chest were acquired. COMPARISON: [facility], CR, XR CHEST 1V, 06/30/2021, 14:32. FINDINGS: Surgical changes and devices: Post vertebroplasty change at multiple levels of the midthoracic spine. Lungs and pleura: Lungs are clear. No pleural effusions or pneumothorax. Mediastinum: Mediastinal contours are normal. Heart size is normal. Bones and chest wall: No suspicious bony abnormalities. Soft tissues appear unremarkable. IMPRESSION: No acute cardiopulmonary abnormality is seen. Dictated by: Francisco Dey M.D. on 07/10/2025 at 4:20 Approved by: Francisco Dey M.D. on 07/10/2025 at 4:21
== END ==
PROVIDERS: PCP Family Medicine; Referring Provider Family Medicine; Visit Provider Family Medicine
DX: K22.9 Disease of esophagus, unspecified (principal); R07.89 Other chest pain
CPT/HCPCS: 71046

== ENCOUNTER → 2025-07-14 13:56 | Outpatient (CLI) | payer MEDICARE, OTHER, SELFPAY ==
[2024-12-23 16:22] VITALS: BMI 19.8
--- NOTE | 2025-07-14 13:57 | DI.CT.S_ITS ---
PROCEDURE: CT CHEST W CON INDICATIONS: evaluate TECHNIQUE: After the administration of intravenous contrast, 5 mm thick sections acquired from the pulmonary apices to the posterior costophrenic angles. 1 mm axial lung, 5 mm thick coronal and sagittal reformats and 7 mm axial MIP were acquired. For radiation dose reduction, the following was used: automated exposure control, adjustment of mA and/or kV according to patient size. COMPARISON: [facility], CT, CT CHEST HIGH RESOLUTION, 03/24/2022, 8:24. FINDINGS: Image quality: Diagnostic. Lower Neck: No enlarged lymph nodes. Thyroid: No thyroid nodules which require sonographic follow up, per consensus guidelines. Axillae: No enlarged lymph nodes. Chest Wall: Unremarkable. Bones: Unremarkable. Lungs and Pleura: No pneumothorax or pleural effusions. Stable linear parenchymal densities in both upper lobes, more on the right. No new consolidation or significant focal lesion seen. Heart: Heart size is normal. No pericardial effusion. Thoracic Vessels: The aorta and pulmonary arteries demonstrate normal size. Mediastinum and Amina: No enlarged lymph nodes. Esophagus: No wall thickening. No hiatal hernia. Upper Abdomen: Visualized upper abdomen solid organs and bowel loops appear normal. IMPRESSION: 1. Stable appearance of parenchymal scarring in both upper lobes. 2. No new acute abnormality or significant focal lesion seen. Dictated by: Leandro Fragoso M.D. on 07/15/2025 at 16:25 Approved by: Leandro Fragoso M.D. on 07/15/2025 at 16:30
[2025-07-14 14:24] LABS: Estimated Glomerular Filt Rate > 60 mL/min (>60)
== END ==
LOC: CT 13:56
PROVIDERS: PCP Family Medicine; Referring Provider Family Medicine; Visit Provider Family Medicine
DX: K22.9 Disease of esophagus, unspecified (principal); R07.89 Other chest pain
CPT/HCPCS: 36415; 71260; 82565; Q9967